=== PATIENT | male | born 1955 ===

== ENCOUNTER 2020-06-23 20:06 | Inpatient (IN) | payer BC, SELFPAY ==
[2020-06-24] MEDS ORDERED: cloNIDine 0.1 MG TAB PO PRN (00:15)
[2020-06-24] MEDS ORDERED: Ondansetron PF 4 MG/2 ML Vial IVP PRN (00:15)
[2020-06-24] MEDS ORDERED: Labetalol HCl 100 MG/20 ML VIAL SLOW IVP PRN (00:15)
[2020-06-24] MEDS ORDERED: hydrALAZINE 20 MG/ML VIAL SLOW IVP PRN (00:15)
[2020-06-24] MEDS ORDERED: Electrolyte Replacement Protocol 1 EACH FS SCH (00:15)
[2020-06-24] MEDS ORDERED: HYDROcodone/Acetaminophen 5/325 mg Tablet PO PRN (00:15)
[2020-06-24] MEDS ORDERED: Azithromycin 500 MG in Syringe 0 ML IVPB SCH (00:15)
[2020-06-24] MEDS ORDERED: Promethazine HCl 12.5 MG in Sodium Chloride 0.9% 50 ML IVPB PRN (00:15)
[2020-06-24] MEDS ORDERED: Guaifenesin DM 100-10/5 ML UDCUP PO PRN (00:15)
--- NOTE | 2020-06-24 00:19 | PDOC.HHP ---
Hospitalist HPI Shortness of breath History of Present Illness: Patient is a 65 year old male with no significant PMH who presents to hospital as transfer from [facility] for SOB, COVID. Patient diagnosed w/ covid 7 days ago, presents originally w/ 1 day of shortness of breath. he has quarantined at home, went to ED today, O2 sat ranged from 54-85 on room air, but was in mid 90s on 2L by nasal cannula. In ED, COVID swab positive, CT chest performed and revealed pneumonia consistent w/ COVID infection. Diffuse lymphadenopathy noted, cannot rule out lymphoproliferative disease. 22mm adrenal adenoma noted, f/u recommended. cholelithiasis w/ no other GB findings noted. patient given albuterol, dexamethasone, labs significant for mildly elevated D dimer, elevated NT proBNP. Patient sent here for further workup and care. Allergies/Adverse Reactions: Allergy/AdvReac Type Severity Reaction Status Date / Time No Known Drug Allergies Allergy Verified 06/23/20 23:33 Home Medications: Medication Instructions Recorded Confirmed Type No Known 06/23/20 06/23/20 History Comments: none Past History: PMHx: reviewed, no pertinent past medical history PSHx: ankle and knee surgery FHx: reviewed, no pertinent past family history Social: denies alcohol, tobacco, drug use Hospitalist HPI ROS Constitutional: denies: fever, chills, sweats, weakness, malaise, other Eyes: denies: pain, vision change, conjunctivae inflammation, eyelid inflammation, redness, other ENT: denies: ear pain, ear discharge, nose pain, nose discharge, nose congestion, mouth pain, mouth swelling, throat pain, throat swelling, other Respiratory: reports: shortness of breath. denies: cough, dry, hemoptysis, SOB with excertion, pleuritic pain, sputum, wheezing, other Cardiovascular: denies: chest pain, palpitations, orthopnea, paroxysmal noc. dyspnea, edema, light headedness, other Gastrointestinal: denies: nausea, vomiting, abdominal pain, diarrhea, constipation, melena, hematochezia, other Genitourinary: denies: dysuria, frequency, incontinence, hematuria, retention, other Musculoskeletal: denies: neck pain, shoulder pain, arm pain, back pain, hand pain, leg pain, foot pain, other Skin: denies: rash, lesions, fior, bruising, other Neurological: denies: weakness, numbness, incoordination, change in speech, confusion, seizures, other All other systems reviewed; all pertinent +/- noted in HPI/Subj Hospitalist Exam Vitals: Vital Signs (12 hours) Temp Pulse Resp Pulse Ox 06/24/20 00:00 98 06/23/20 23:21 97.6 F 81 20 98 Weight Weight 213 lb General Appearance: NAD, awake alert Eye: PERRL, anicteric sclera ENT: normocephalic atraumatic, no oropharyngeal lesions, moist mucosa Neck: supple, symmetric, no JVD, no thyromegaly, no lymphadenopathy, no carotid bruit Heart: RRR, no murmur, no gallops, no rubs, normal peripheral pulses Respiratory: CTAB, no wheezes, no rales, no ronchi, normal chest expansion, no tachypnea, normal percussion Gastrointestinal: soft, non-tender, non-distended, normal bowel sounds, no palpable masses, no hepatomegaly, no splenomegaly, no bruit Extremities: no cyanosis, no clubbing, no edema Skin: normal turgor, no lesions, no rashes Neurological: cranial nerve grossly intact, normal sensation to touch, no weakness, no focal deficits, no new deficit Musculoskeletal: normal tone, normal strength, no muscle wasting Psychiatric: normal affect, normal behavior, A&O x 3 Hospitalist Results Additional comment: transfer documents reviewed, including labs, vital signs, notes from ED physician and imaging reports Hospitalist H&P A/P Plan: Patient is a 65 year old male with no significant PMH who presents to hospital as transfer from [facility] for SOB, COVID. # COVID 19 infection # hypoxia # elevated D dimer # elevated NT proBNP Patient diagnosed w/ covid 7 days ago, presents originally w/ 1 day of shortness of breath. he has quarantined at home, went to ED today, O2 sat ranged from 54- 85 on room air, but was in mid 90s on 2L by nasal cannula. In ED, COVID swab positive, CT chest performed and revealed pneumonia consistent w/ COVID infection. Diffuse lymphadenopathy noted, cannot rule out lymphoproliferative disease. 22mm adrenal adenoma noted, f/u recommended. cholelithiasis w/ no other GB findings noted. patient given albuterol, dexamethasone, labs significant for mildly elevated D dimer, elevated NT proBNP. Patient sent here for further workup and care. - admitted to floor - supplemental O2, wean as tolerated - azithromycin, decadron, Vit C/D, zinc, pepcid - monitor closely - for elevated D dimer: CTA chest w/ no PE, continue DVT ppx - for elevated NT proBNP - lasix x 2 days ordered # diffuse lymphadenopathy and adrenal adenoma on CT chest - patient will need nonurgent repeat CT chest as outpatient, adrenal protocol + protocol to see lymph nodes DVT/GI ppx full code
[2020-06-24] MEDS ORDERED: Electrolyte Replacement Protocol FS PRN (00:30)
[2020-06-24] MEDS ORDERED: Dexamethasone 4 mg/ml Vial SLOW IVP SCH (01:00)
[2020-06-24] MEDS: Azithromycin 500 MG in Sodium Chloride 0.9% 250 ML 250 ML IVPB SCH (01:24)
[2020-06-24] MEDS: Dexamethasone 4 mg/ml Vial SLOW IVP SCH (05:28)
[2020-06-24] MEDS: Mometasone 100 MCG/Formoterol 5 MCG 120 PUFF INHALER INH SCH ×2 (06:13→18:27)
[2020-06-24] MEDS: Famotidine 20 MG TAB PO SCH ×2 (08:00→20:44)
[2020-06-24] MEDS: Cholecalciferol 1,000 UNITS (25 MCG) TAB PO SCH (08:00)
[2020-06-24] MEDS: Furosemide 40 MG TAB PO SCH (08:00)
[2020-06-24] MEDS: Ascorbic Acid 500 mg Chewable Tablet PO SCH (08:00)
[2020-06-24] MEDS: Polyethylene Glycol 3350 17 GM Packet PO SCH ×2 (08:01)
[2020-06-24] MEDS: Zinc Sulfate 220 MG CAP PO SCH (08:01)
--- NOTE | 2020-06-24 15:19 | PDOC.HOSPP ---
- Subjective Encounter Date: 06/24/20 Subjective: Complaints of shortness of breath but feeling better - Objective Vital Signs & Weight: Vital Signs (12 hours) Temp Pulse Resp BP BP Pulse Ox 06/24/20 13:14 94 L 06/24/20 12:00 97.8 F 73 20 144/74 H 90 L 06/24/20 08:00 90 L 06/24/20 07:52 98.3 F 94 20 123/70 90 L 06/24/20 04:00 97.8 F 80 20 125/71 93 L Weight Weight 213 lb I&O: 06/23/20 06/24/20 06/25/20 06:59 06:59 06:59 Intake Total 480 Balance 480 Hospitalist ROS - Review of Systems Constitutional: denies: fever, chills, sweats, weakness, malaise, other Eyes: denies: pain, vision change, conjunctivae inflammation, eyelid inflammation, redness, other Respiratory: reports: shortness of breath Cardiovascular: denies: chest pain, palpitations, orthopnea, paroxysmal noc. dyspnea, edema, light headedness, other Genitourinary: denies: dysuria, frequency, incontinence, hematuria, retention, other Skin: denies: rash, lesions, fior, bruising, other Neurological: denies: weakness, numbness, incoordination, change in speech, confusion, seizures, other - Medication Medications: Active Medications Generic Name Dose Route Start Last Admin Trade Name Freq PRN Reason Stop Dose Admin Ascorbic Acid 500 mg 06/24/20 09:00 06/24/20 08:00 Ascorbic Acid 500 Mg Chewable Tablet PO 500 mg DAILY ABDULLAHI Administration Cholecalciferol 2,000 units 06/24/20 09:00 06/24/20 08:00 Cholecalciferol 1,000 Units (25 Mcg) Tab PO 2,000 units DAILY ABDULLAHI Administration Dexamethasone 6 mg 06/24/20 06:00 06/24/20 05:28 Dexamethasone 4 Mg/Ml Vial SLOW IVP 6 mg 0600 ABDULLAHI Administration Famotidine 20 mg 06/24/20 09:00 06/24/20 08:00 Famotidine 20 Mg Tab PO 20 mg BID ABDULLAHI Administration Furosemide 40 mg 06/24/20 07:30 06/24/20 08:00 Furosemide 40 Mg Tab PO 06/25/20 07:31 40 mg DAILY-AC ABDULLAHI Administration Azithromycin 500 mg/ Sodium 250 mls @ 250 mls/hr 06/24/20 01:00 06/24/20 01:24 Chloride IVPB 250 mls 0100 ABDULLAHI Administration Mometasone Furoate/Formoterol Fumar 1 puff 06/24/20 06:30 06/24/20 06:13 Mometasone 100 Mcg/Formoterol 5 Mcg 120 Puff Inhaler INH 1 puff BID-RT ABDULLAHI Administration Polyethylene Glycol 17 gm 06/24/20 09:00 06/24/20 08:01 Polyethylene Glycol 3350 17 Gm Packet PO 17 gm DAILY ABDULLAHI Administration Zinc Sulfate 220 mg 06/24/20 09:00 06/24/20 08:01 Zinc Sulfate 220 Mg Cap PO 220 mg DAILY ABDULLAHI Administration Hospitalist Exam Vitals: Vital Signs (12 hours) Temp Pulse Resp BP BP Pulse Ox 06/24/20 13:14 94 L 06/24/20 12:00 97.8 F 73 20 144/74 H 90 L 06/24/20 08:00 90 L 06/24/20 07:52 98.3 F 94 20 123/70 90 L 06/24/20 04:00 97.8 F 80 20 125/71 93 L Weight Weight 213 lb General Appearance: awake alert Eye: PERRL ENT: normocephalic atraumatic Neck: supple Heart: RRR Respiratory: rales Gastrointestinal: soft, non-tender, non-distended Extremities: no cyanosis, no clubbing, no edema Hosp A/P - Plan #1. Acute hypoxic respiratory failure secondary to Covid pneumonia -On inhalers, steroids and antibiotics -Sats at 90% on 2 L 2. DVT prophylaxis -Subcu Lovenox
[2020-06-24] MEDS: Enoxaparin Sodium 40 MG/0.4 ML SYRINGE SC SCH (20:43)
[2020-06-25] MEDS: Azithromycin 500 MG in Sodium Chloride 0.9% 250 ML 250 ML IVPB SCH (01:00)
[2020-06-25] MEDS: Dexamethasone 4 mg/ml Vial SLOW IVP SCH (06:08)
[2020-06-25 06:28] LABS: #Lymphocytes 1.4 thou/uL (1.20-3.40); #Monocytes 0.2 thou/uL (0.11-0.59); %Basophils 0.1 % (0.0-1.0); %Lymphocytes 14.6 % (21.0-51.0); %Monocytes 2.1 % (0.0-10.0); %Neutrophils 83.2 % (42.0-75.0); Hemoglobin 9.1 g/dL (14.0-18.0); Mean Corpuscular HGB CONC 31.1 g/dL (32.0-36.0); Mean Corpuscular Volume 83.5 fL (78.0-98.0); Mean Platelet Volume 7.3 fL (7.4-10.4); Platelet Count 277 thou/uL (130-400); RBC Distribution Width 14.3 % (11.5-14.5); Red Blood Cell (RBC) Count 3.52 mill/uL (4.70-6.10); White Blood Cell (WBC) Count 9.6 thou/uL (4.8-10.8)
[2020-06-25 06:48] LABS: Anion Gap 12 mmol/L (10-20); BUN (Urea Nitrogen) 21 mg/dL (8.4-25.7); Calc. Creatinine Clearance 131 mL/min (70-130); Calcium 8.4 mg/dL (7.8-10.44); Carbon Dioxide 29 mmol/L (23-31); Chloride 100 mmol/L (98-107); Glucose 116 mg/dL (80-115); Potassium 5.4 mmol/L (3.5-5.1); Sodium 136 mmol/L (136-145)
[2020-06-25] MEDS: Mometasone 100 MCG/Formoterol 5 MCG 120 PUFF INHALER INH SCH ×2 (07:00→18:04)
[2020-06-25] MEDS: Furosemide 40 MG TAB PO SCH (08:22)
[2020-06-25] MEDS: Polyethylene Glycol 3350 17 GM Packet PO SCH (08:22)
[2020-06-25] MEDS: Famotidine 20 MG TAB PO SCH ×2 (08:22→20:04)
[2020-06-25] MEDS: Ascorbic Acid 500 mg Chewable Tablet PO SCH (08:22)
[2020-06-25] MEDS: Zinc Sulfate 220 MG CAP PO SCH (08:22)
[2020-06-25] MEDS: Cholecalciferol 1,000 UNITS (25 MCG) TAB PO SCH (08:22)
--- NOTE | 2020-06-25 11:58 | PDOC.HOSPP ---
- Subjective Encounter Date: 06/25/20 Encounter Time: 11:57 Subjective: Feeling better, less short of breath - Objective Vital Signs & Weight: Vital Signs (12 hours) Temp Pulse Resp BP Pulse Ox 06/25/20 08:00 91 L 06/25/20 07:53 90 L 06/25/20 07:12 98.6 F 82 20 132/75 94 L 06/25/20 04:00 99.0 F 79 18 142/75 H 06/25/20 00:00 97.7 F 79 20 138/74 88 L Weight Weight 213 lb I&O: 06/24/20 06/25/20 06/26/20 06:59 06:59 06:59 Intake Total 2220 Balance 2220 Result Diagrams: 06/25/20 05:48 06/25/20 05:48 Hospitalist ROS - Review of Systems Constitutional: denies: fever, chills, sweats, weakness, malaise, other Eyes: denies: pain, vision change, conjunctivae inflammation, eyelid in flammation, redness, other ENT: denies: ear pain, ear discharge, nose pain, nose discharge, nose congestion, mouth pain, mouth swelling, throat pain, throat swelling, other Respiratory: denies: cough, dry, shortness of breath, hemoptysis, SOB with ex certion, pleuritic pain, sputum, wheezing, other Cardiovascular: denies: chest pain, palpitations, orthopnea, paroxysmal noc. dyspnea, edema, light headedness, other Gastrointestinal: denies: nausea, vomiting, abdominal pain, diarrhea, constipation, melena, hematochezia, other Genitourinary: denies: dysuria, frequency, incontinence, hematuria, retention, other Musculoskeletal: denies: neck pain, shoulder pain, arm pain, back pain, hand pain, leg pain, foot pain, other Skin: denies: rash, lesions, fior, bruising, other - Medication Medications: Active Medications Generic Name Dose Route Start Last Admin Trade Name Freq PRN Reason Stop Dose Admin Ascorbic Acid 500 mg 06/24/20 09:00 06/25/20 08:22 Ascorbic Acid 500 Mg Chewable Tablet PO 500 mg DAILY ABDULLAHI Administration Cholecalciferol 2,000 units 06/24/20 09:00 06/25/20 08:22 Cholecalciferol 1,000 Units (25 Mcg) Tab PO 2,000 units DAILY ABDULLAHI Administration Dexamethasone 6 mg 06/24/20 06:00 06/25/20 06:08 Dexamethasone 4 Mg/Ml Vial SLOW IVP 6 mg 0600 ABDULLAHI Administration Enoxaparin Sodium 40 mg 06/24/20 21:00 06/24/20 20:43 Enoxaparin Sodium 40 Mg/0.4 Ml Syringe SC 40 mg 2100 ABDULLAHI Administration Famotidine 20 mg 06/24/20 09:00 06/25/20 08:22 Famotidine 20 Mg Tab PO 20 mg BID ABDULLAHI Administration Azithromycin 500 mg/ Sodium 250 mls @ 250 mls/hr 06/24/20 01:00 06/25/20 01:00 Chloride IVPB 250 mls 0100 ABDULLAHI Administration Mometasone Furoate/Formoterol Fumar 1 puff 06/24/20 06:30 06/25/20 07:00 Mometasone 100 Mcg/Formoterol 5 Mcg 120 Puff Inhaler INH 1 puff BID-RT ABDULLAHI Administration Polyethylene Glycol 17 gm 06/24/20 09:00 06/25/20 08:22 Polyethylene Glycol 3350 17 Gm Packet PO Not Given DAILY ABDULLAHI Zinc Sulfate 220 mg 06/24/20 09:00 06/25/20 08:22 Zinc Sulfate 220 Mg Cap PO 220 mg DAILY ABDULLAHI Administration Hospitalist Exam Vitals: Vital Signs (12 hours) Temp Pulse Resp BP Pulse Ox 06/25/20 08:00 91 L 06/25/20 07:53 90 L 06/25/20 07:12 98.6 F 82 20 132/75 94 L 06/25/20 04:00 99.0 F 79 18 142/75 H 06/25/20 00:00 97.7 F 79 20 138/74 88 L Weight Weight 213 lb General Appearance: NAD, awake alert Eye: PERRL ENT: normocephalic atraumatic, no oropharyngeal lesions Neck: supple, symmetric, no JVD Heart: RRR, no murmur, no gallops Respiratory: CTAB, no wheezes, no rales Gastrointestinal: soft, non-tender, non-distended, normal bowel sounds Extremities: no cyanosis, no clubbing, no edema Hosp A/P - Plan #1. Acute hypoxic respiratory failure secondary to Covid pneumonia -On inhalers, steroids and antibiotics -Sats at 94% on 4L 2. DVT prophylaxis -Subcu Lovenox
[2020-06-25] MEDS: Enoxaparin Sodium 40 MG/0.4 ML SYRINGE SC SCH (20:04)
[2020-06-26] MEDS: Azithromycin 500 MG in Sodium Chloride 0.9% 250 ML 250 ML IVPB SCH (02:00)
[2020-06-26] MEDS: Dexamethasone 4 mg/ml Vial SLOW IVP SCH (07:12)
[2020-06-26] MEDS: Mometasone 100 MCG/Formoterol 5 MCG 120 PUFF INHALER INH SCH ×2 (07:13→18:19)
[2020-06-26] MEDS: Cholecalciferol 1,000 UNITS (25 MCG) TAB PO SCH (08:00)
[2020-06-26] MEDS: Zinc Sulfate 220 MG CAP PO SCH (08:00)
[2020-06-26] MEDS: Famotidine 20 MG TAB PO SCH ×2 (08:00→19:50)
[2020-06-26] MEDS: Acetaminophen 325 MG TAB PO PRN (08:00)
[2020-06-26] MEDS: Ascorbic Acid 500 mg Chewable Tablet PO SCH (08:00)
[2020-06-26] MEDS: Polyethylene Glycol 3350 17 GM Packet PO SCH (08:01)
[2020-06-26 09:18] LABS: #Lymphocytes 1.3 thou/uL (1.20-3.40); #Monocytes 0.2 thou/uL (0.11-0.59); #Neutrophils 8.6 thou/uL (1.40-6.50); %Eosinophils 0.3 % (0.0-10.0); %Monocytes 1.8 % (0.0-10.0); %Neutrophils 84.9 % (42.0-75.0); Hemoglobin 9.5 g/dL (14.0-18.0); Mean Corpuscular Hemoglobin 25.7 pg (27.0-31.0); Mean Corpuscular Volume 82.9 fL (78.0-98.0); Mean Platelet Volume 7.2 fL (7.4-10.4); Platelet Count 296 thou/uL (130-400); RBC Distribution Width 14.3 % (11.5-14.5); Red Blood Cell (RBC) Count 3.69 mill/uL (4.70-6.10); White Blood Cell (WBC) Count 10.1 thou/uL (4.8-10.8)
[2020-06-26 09:31] LABS: Anion Gap 11 mmol/L (10-20); BUN (Urea Nitrogen) 20 mg/dL (8.4-25.7); Calc. Creatinine Clearance 129 mL/min (70-130); Calcium 8.2 mg/dL (7.8-10.44); Carbon Dioxide 28 mmol/L (23-31); Chloride 95 mmol/L (98-107); Glucose 141 mg/dL (80-115); Potassium 4.3 mmol/L (3.5-5.1); Sodium 130 mmol/L (136-145)
[2020-06-26] MEDS: cefTRIAXone\\ROCEPHIN 1 GM in Sodium Chloride 0.9% 100 ML IVPB SCH (13:10)
--- NOTE | 2020-06-26 13:33 | PDOC.HOSPP ---
- Subjective Encounter Date: 06/26/20 Encounter Time: 10:00 Subjective: More hypoxic this morning with sats in the low 80s. Apparently patient went to the restroom without his oxygen and when he came back he became more hypoxic. Placed back on high flow oxygen with sats now at 91% - Objective Vital Signs & Weight: Vital Signs (12 hours) Temp Pulse Resp BP Pulse Ox 06/26/20 12:04 98.8 F 84 18 126/69 94 L 06/26/20 11:46 91 L 06/26/20 08:00 98.9 F 82 18 96 06/26/20 07:41 99.3 F 83 18 125/62 85 L 06/26/20 07:18 91 L 06/26/20 03:50 98.7 F 74 20 129/72 92 L 06/26/20 02:37 93 L Weight Weight 213 lb I&O: 06/25/20 06/26/20 06/27/20 06:59 06:59 06:59 Intake Total 2220 Output Total 600 Balance 2220 -600 Result Diagrams: 06/26/20 08:56 06/26/20 08:56 Hospitalist ROS - Review of Systems Constitutional: denies: fever, chills, sweats, weakness, malaise, other Eyes: denies: pain, vision change, conjunctivae inflammation, eyelid inflammation, redness, other ENT: denies: ear pain, ear discharge, nose pain, nose discharge, nose congesti on, mouth pain, mouth swelling, throat pain, throat swelling, other Respiratory: reports: shortness of breath, SOB with excertion Cardiovascular: denies: chest pain, palpitations, orthopnea, paroxysmal noc. dyspnea, edema, light headedness, other Gastrointestinal: denies: nausea, vomiting, abdominal pain, diarrhea, constipa tion, melena, hematochezia, other Genitourinary: denies: dysuria, frequency, incontinence, hematuria, retention, other Musculoskeletal: denies: neck pain, shoulder pain, arm pain, back pain, hand pain, leg pain, foot pain, other Skin: denies: rash, lesions, fior, bruising, other - Medication Medications: Active Medications Generic Name Dose Route Start Last Admin Trade Name Freq PRN Reason Stop Dose Admin Ascorbic Acid 500 mg 06/24/20 09:00 06/26/20 08:00 Ascorbic Acid 500 Mg Chewable Tablet PO 500 mg DAILY ABDULLAHI Administration Cholecalciferol 2,000 units 06/24/20 09:00 06/26/20 08:00 Cholecalciferol 1,000 Units (25 Mcg) Tab PO 2,000 units DAILY ABDULLAHI Administration Dexamethasone 6 mg 06/24/20 06:00 06/26/20 07:12 Dexamethasone 4 Mg/Ml Vial SLOW IVP 6 mg 0600 ABDULLAHI Administration Enoxaparin Sodium 40 mg 06/24/20 21:00 06/25/20 20:04 Enoxaparin Sodium 40 Mg/0.4 Ml Syringe SC 40 mg 2100 ABDULLAHI Administration Famotidine 20 mg 06/24/20 09:00 06/26/20 08:00 Famotidine 20 Mg Tab PO 20 mg BID ABDULLAHI Administration Azithromycin 500 mg/ Sodium 250 mls @ 250 mls/hr 06/24/20 01:00 06/26/20 02:00 Chloride IVPB 250 mls 0100 ABDULLAHI Administration Ceftriaxone Sodium 1 gm/ 100 mls @ 200 mls/hr 06/26/20 13:00 06/26/20 13:10 Sodium Chloride IVPB 100 mls 1300 ABDULLAHI Administration Mometasone Furoate/Formoterol Fumar 1 puff 06/24/20 06:30 06/26/20 07:13 Mometasone 100 Mcg/Formoterol 5 Mcg 120 Puff Inhaler INH 1 puff BID-RT ABDULLAHI Administration Ondansetron HCl 4 mg 06/24/20 00:15 06/25/20 15:14 Ondansetron Pf 4 Mg/2 Ml Vial IVP 4 mg Q6H PRN Administration Nausea/Vomiting use 1st Polyethylene Glycol 17 gm 06/24/20 09:00 06/26/20 08:01 Polyethylene Glycol 3350 17 Gm Packet PO Not Given DAILY ABDULLAHI Zinc Sulfate 220 mg 06/24/20 09:00 06/26/20 08:00 Zinc Sulfate 220 Mg Cap PO 220 mg DAILY ABDULLAHI Administration Hospitalist Exam Vitals: Vital Signs (12 hours) Temp Pulse Resp BP Pulse Ox 06/26/20 12:04 98.8 F 84 18 126/69 94 L 06/26/20 11:46 91 L 06/26/20 08:00 98.9 F 82 18 96 06/26/20 07:41 99.3 F 83 18 125/62 85 L 06/26/20 07:18 91 L 06/26/20 03:50 98.7 F 74 20 129/72 92 L 06/26/20 02:37 93 L Weight Weight 213 lb General Appearance: NAD, awake alert Eye: PERRL ENT: normocephalic atraumatic, no oropharyngeal lesions Neck: supple, no JVD Heart: RRR, no murmur Respiratory: tachypneic Gastrointestinal: soft, non-tender, non-distended Extremities: no cyanosis, no clubbing, no edema Skin: normal turgor Musculoskeletal: normal tone, normal strength Hosp A/P - Plan #1. Acute hypoxic respiratory failure secondary to Covid pneumonia -On inhalers, steroids and antibiotics -Clinically has deteriorated, now on high flow oxygen with sats of 91% -Added colchicine -Ordered D-dimer to determine if patient should be on therapeutic dose of Lovenox -Pulmonology consult 2. Adrenal adenoma -Outpatient follow-up with PCP for repeat CT of abdomen with contrast for further evaluation 3. DVT prophylaxis -Subcu Lovenox Updated patient's over the phone regarding clinical status
--- NOTE | 2020-06-26 16:45 | RAD ---
RADIOGRAPH CHEST 1 VIEW: DATE: 06/26/2020 TIME: 4:10 PM HISTORY: 65-year-old male with "worsening COVID" COMPARISON: none FINDINGS: Diffuse mild bilateral reticulonodular infiltrates, greatest at left lung base. Enlarged cardiac shadow due to magnification versus true cardiomegaly. No pneumothorax. IMPRESSION: Bilateral mild to moderate infiltrates, nonspecific. This could represent COVID 19 pneumonia.
--- NOTE | 2020-06-26 16:46 | PRG ---
DATE OF SERVICE: 06/26/2020 SUBJECTIVE: I was consulted to see this patient because he has COVID and he is requiring high-flow oxygen. This morning, he got up and desaturated significantly. He is now day 10 into his COVID. He did not really feel bad until about 3 days ago when he went to freestanding ER in [place] and was subsequently transferred over here. He is now requiring about 90% high-flow oxygen. PAST MEDICAL HISTORY: Denies any past medical history. PAST SURGICAL HISTORY: Ankle and knee surgery. FAMILY MEDICAL HISTORY: Unremarkable. SOCIAL HISTORY: Nonsmoker. Does not consume alcohol. Does not use illicit drugs. He works in [employer]. 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 ALLERGIES: NONE. MEDICATIONS: Prior to admission, none. Inpatient medications reviewed. See chart. REVIEW OF SYSTEMS: Remarkable for cough, shortness of breath with exertion. Otherwise, negative. PHYSICAL EXAMINATION: VITAL SIGNS: Temperature 98.8, pulse 78, respirations 20, O2 sats about 99% on 90% high-flow, blood pressure 126/69. GENERAL: He is an engaging personality who is very talkative, is in no acute distress. HEENT: Unremarkable. NECK: No adenopathy or JVD. LUNGS: Inspiratory crackles in both bases. CARDIAC: S1 and S2, regular. ABDOMEN: Soft. EXTREMITIES: No edema. LABORATORY DATA: White blood cell count 10, hematocrit 30, and platelet count 296. D-dimer 6.2. Sodium 138, potassium 4.2, chloride 95, CO2 of 28, BUN 20, creatinine 0.7, glucose 141. IMAGING STUDIES: Chest x-ray shows bilateral infiltrates. ASSESSMENT: COVID pneumonia. PLAN: Agree with the colchicine, dexamethasone, zinc, enoxaparin. Please let me know if he decompensates any further. BiPAP would be the next step and then intubation. Job ID: [id number]
[2020-06-26] MEDS: Colchicine 0.6 MG TAB PO SCH (17:15)
[2020-06-26] MEDS: Enoxaparin Sodium 40 MG/0.4 ML SYRINGE SC SCH (19:50)
[2020-06-27] MEDS: Azithromycin 500 MG in Sodium Chloride 0.9% 250 ML 250 ML IVPB SCH (01:13)
[2020-06-27] MEDS: Dexamethasone 4 mg/ml Vial SLOW IVP SCH (05:23)
[2020-06-27] MEDS: Mometasone 100 MCG/Formoterol 5 MCG 120 PUFF INHALER INH SCH ×2 (05:45→17:55)
[2020-06-27] MEDS: Acetaminophen 325 MG TAB PO PRN (05:49)
[2020-06-27] MEDS: Polyethylene Glycol 3350 17 GM Packet PO SCH (08:10)
[2020-06-27] MEDS: Famotidine 20 MG TAB PO SCH (08:10)
[2020-06-27] MEDS: Ascorbic Acid 500 mg Chewable Tablet PO SCH (08:10)
[2020-06-27] MEDS: Zinc Sulfate 220 MG CAP PO SCH (08:10)
[2020-06-27] MEDS: Cholecalciferol 1,000 UNITS (25 MCG) TAB PO SCH (08:10)
[2020-06-27] MEDS: Colchicine 0.6 MG TAB PO SCH ×2 (08:10→16:15)
[2020-06-27 08:26] LABS: Anion Gap 13 mmol/L (10-20); BUN (Urea Nitrogen) 20 mg/dL (8.4-25.7); Calc. Creatinine Clearance 134 mL/min (70-130); Calcium 8.1 mg/dL (7.8-10.44); Carbon Dioxide 27 mmol/L (23-31); Chloride 96 mmol/L (98-107); Glucose 114 mg/dL (80-115); Potassium 4.6 mmol/L (3.5-5.1); Sodium 131 mmol/L (136-145)
[2020-06-27] MEDS: Pantoprazole 40 MG GRANULES PACKET PO SCH ×2 (10:51→20:41)
[2020-06-27 12:09] LABS: #Lymphocytes 1.3 thou/uL (1.20-3.40); #Monocytes 0.2 thou/uL (0.11-0.59); #Neutrophils 11.2 thou/uL (1.40-6.50); %Basophils 0.2 % (0.0-1.0); %Eosinophils 0.1 % (0.0-10.0); %Lymphocytes 10.3 % (21.0-51.0); %Monocytes 1.3 % (0.0-10.0); %Neutrophils 88.1 % (42.0-75.0); Hemoglobin 9.1 g/dL (14.0-18.0); Mean Corpuscular HGB CONC 31.1 g/dL (32.0-36.0); Mean Corpuscular Hemoglobin 25.8 pg (27.0-31.0); Mean Platelet Volume 7.6 fL (7.4-10.4); Platelet Count 229 thou/uL (130-400); RBC Distribution Width 14.3 % (11.5-14.5); Red Blood Cell (RBC) Count 3.53 mill/uL (4.70-6.10); White Blood Cell (WBC) Count 12.7 thou/uL (4.8-10.8)
[2020-06-27] MEDS: cefTRIAXone\\ROCEPHIN 1 GM in Sodium Chloride 0.9% 100 ML IVPB SCH (12:12)
--- NOTE | 2020-06-27 12:39 | PDOC.HOSPP ---
- Subjective Encounter Date: 06/27/20 Encounter Time: 13:00 Subjective: Lying in bed, comfortable, no acute distress - Objective Vital Signs & Weight: Vital Signs (12 hours) Temp Pulse Resp BP BP Pulse Ox 06/27/20 11:13 97.6 F 72 16 109/63 95 06/27/20 08:00 93 L 06/27/20 07:07 98.3 F 73 20 128/72 93 L 06/27/20 06:44 93 L 06/27/20 05:45 91 L 06/27/20 04:00 98.4 F 70 20 112/66 91 L Weight Weight 213 lb I&O: 06/26/20 06/27/20 06/28/20 06:59 06:59 06:59 Intake Total 1050 360 Output Total 600 900 Balance -600 150 360 Result Diagrams: 06/27/20 11:53 06/27/20 07:50 Hospitalist ROS - Review of Systems Constitutional: denies: fever, chills, sweats, weakness, malaise, other Eyes: denies: pain, vision change, conjunctivae inflammation, eyelid inflammation, redness, other ENT: denies: ear pain, ear discharge, nose pain, nose discharge, nose congestion, mouth pain, mouth swelling, throat pain, throat swelling, other Respiratory: reports: shortness of breath, SOB with excertion Cardiovascular: denies: chest pain, palpitations, orthopnea, paroxysmal noc. dyspnea, edema, light headedness, other Gastrointestinal: denies: nausea, vomiting, abdominal pain, diarrhea, constipation, melena, hematochezia, other Genitourinary: denies: dysuria, frequency, incontinence, hematuria, retention, other Musculoskeletal: denies: neck pain, shoulder pain, arm pain, back pain, hand pain, leg pain, foot pain, other Skin: denies: rash, lesions, fior, bruising, other - Medication Medications: Active Medications Generic Name Dose Route Start Last Admin Trade Name Freq PRN Reason Stop Dose Admin Acetaminophen 650 mg 06/24/20 00:15 06/27/20 05:49 Acetaminophen 325 Mg Tab PO 650 mg Q4H PRN Administration Headache/Fever/Mild Pain (1-3) Ascorbic Acid 500 mg 06/24/20 09:00 06/27/20 08:10 Ascorbic Acid 500 Mg Chewable Tablet PO 500 mg DAILY ABDULLAHI Administration Cholecalciferol 2,000 units 06/24/20 09:00 06/27/20 08:10 Cholecalciferol 1,000 Units (25 Mcg) Tab PO 2,000 units DAILY ABDULLAHI Administration Colchicine 0.6 mg 06/26/20 17:00 06/27/20 08:10 Colchicine 0.6 Mg Tab PO 0.6 mg BID-WM ABDULLAHI Administration Dexamethasone 6 mg 06/24/20 06:00 06/27/20 05:23 Dexamethasone 4 Mg/Ml Vial SLOW IVP 6 mg 0600 ABDULLAHI Administration Azithromycin 500 mg/ Sodium 250 mls @ 250 mls/hr 06/24/20 01:00 06/27/20 01:13 Chloride IVPB 250 mls 0100 ABDULLAHI Administration Ceftriaxone Sodium 1 gm/ 100 mls @ 200 mls/hr 06/26/20 13:00 06/27/20 12:12 Sodium Chloride IVPB 100 mls 1300 ABDULLAHI Administration Mometasone Furoate/Formoterol Fumar 1 puff 06/24/20 06:30 06/27/20 05:45 Mometasone 100 Mcg/Formoterol 5 Mcg 120 Puff Inhaler INH 1 puff BID-RT ABDULLAHI Administration Ondansetron HCl 4 mg 06/24/20 00:15 06/25/20 15:14 Ondansetron Pf 4 Mg/2 Ml Vial IVP 4 mg Q6H PRN Administration Nausea/Vomiting use 1st Pantoprazole Sodium 40 mg 06/27/20 09:00 06/27/20 10:51 Pantoprazole 40 Mg Granules Packet PO 40 mg BID ABDULLAHI Administration Polyethylene Glycol 17 gm 06/24/20 09:00 06/27/20 08:10 Polyethylene Glycol 3350 17 Gm Packet PO 17 gm DAILY ABDULLAHI Administration Zinc Sulfate 220 mg 06/24/20 09:00 06/27/20 08:10 Zinc Sulfate 220 Mg Cap PO 220 mg DAILY ABDULLAHI Administration Hospitalist Exam Vitals: Vital Signs (12 hours) Temp Pulse Resp BP BP Pulse Ox 06/27/20 11:13 97.6 F 72 16 109/63 95 06/27/20 08:00 93 L 06/27/20 07:07 98.3 F 73 20 128/72 93 L 06/27/20 06:44 93 L 06/27/20 05:45 91 L 06/27/20 04:00 98.4 F 70 20 112/66 91 L Weight Weight 213 lb General Appearance: awake alert Eye: PERRL ENT: normocephalic atraumatic Neck: no lymphadenopathy Heart: RRR Respiratory: no wheezes Gastrointestinal: soft, non-tender, non-distended Extremities: no cyanosis, no clubbing Neurological: cranial nerve grossly intact Musculoskeletal: normal tone, normal strength Psychiatric: normal affect, normal behavior Hosp A/P - Plan #1. Acute hypoxic respiratory failure secondary to Covid pneumonia -On inhalers, steroids and antibiotics -Clinically stable on high flow oxygen with sats of 96% -Added colchicine -In light of markedly elevated D-dimer, more than 3 times the normal limit, changed to therapeutic dose of Lovenox -Pulmonology consult 2. Adrenal adenoma -Outpatient follow-up with PCP for repeat CT of abdomen w/contrast for further evaluation 3. DVT prophylaxis -Subcu Lovenox Updated patient's over the phone regarding clinical status
[2020-06-27] MEDS: Enoxaparin Sodium 100 MG/ML SYRINGE SC SCH (20:41)
[2020-06-28] MEDS: Acetaminophen 325 MG TAB PO PRN (00:15)
[2020-06-28] MEDS: Azithromycin 500 MG in Sodium Chloride 0.9% 250 ML 250 ML IVPB SCH (01:11)
[2020-06-28] MEDS: Dexamethasone 4 mg/ml Vial SLOW IVP SCH (05:24)
[2020-06-28] MEDS: Mometasone 100 MCG/Formoterol 5 MCG 120 PUFF INHALER INH SCH ×2 (07:06→18:19)
[2020-06-28 07:40] LABS: Anion Gap 12 mmol/L (10-20); BUN (Urea Nitrogen) 21 mg/dL (8.4-25.7); Calc. Creatinine Clearance 123 mL/min (70-130); Carbon Dioxide 28 mmol/L (23-31); Chloride 97 mmol/L (98-107); Glucose 124 mg/dL (80-115); Potassium 5.1 mmol/L (3.5-5.1); Sodium 132 mmol/L (136-145)
[2020-06-28] MEDS: Ascorbic Acid 500 mg Chewable Tablet PO SCH ×2 (08:06→09:18)
[2020-06-28] MEDS: Polyethylene Glycol 3350 17 GM Packet PO SCH (08:06)
[2020-06-28] MEDS: Zinc Sulfate 220 MG CAP PO SCH (08:06)
[2020-06-28] MEDS: Cholecalciferol 1,000 UNITS (25 MCG) TAB PO SCH (08:06)
[2020-06-28] MEDS: Colchicine 0.6 MG TAB PO SCH ×3 (08:06→21:07)
[2020-06-28] MEDS: Pantoprazole 40 MG GRANULES PACKET PO SCH ×2 (08:06→21:07)
[2020-06-28] MEDS ORDERED: Cepastat Lozenges 1 LOZ PO PRN (08:23)
[2020-06-28] MEDS ORDERED: Loratadine 10 MG TAB PO PRN (08:23)
[2020-06-28] MEDS ORDERED: Sodium Chloride 0.65% Nasal 44 ML BOT EA NARE PRN (08:23)
[2020-06-28] MEDS ORDERED: Senokot S 8.6-50 MG TAB PO PRN (08:23)
[2020-06-28] MEDS ORDERED: Bisacodyl 5 MG TAB PO PRN (08:23)
[2020-06-28] MEDS ORDERED: Zolpidem Tartrate 5 MG TAB PO PRN (08:23)
[2020-06-28] MEDS ORDERED: GUAIFENESIN SF SOLN 200 MG/10 ML UDCUP PO PRN (08:23)
[2020-06-28] MEDS ORDERED: Loperamide HCl 2 MG CAP PO PRN (08:23)
[2020-06-28] MEDS ORDERED: Calcium Carbonate 500 MG ChewTAB PO PRN (08:23)
[2020-06-28] MEDS ORDERED: Benzonatate 100 MG CAP PO PRN (08:23)
[2020-06-28] MEDS ORDERED: Ondansetron ODT 4 MG TAB PO PRN (08:23)
[2020-06-28] MEDS ORDERED: Albuterol 200 PUFF (6.7GM INHALER) INH PRN (09:03)
[2020-06-28] MEDS: Enoxaparin Sodium 100 MG/ML SYRINGE SC SCH ×2 (09:19→21:07)
[2020-06-28] MEDS ORDERED: REMDESIVIR (EUA) 200 MG in Sodium Chloride 0.9% 250 ML 210 ML IV SCH (11:00)
--- NOTE | 2020-06-28 11:00 | PDOC.HOSPP ---
- Subjective Encounter Date: 06/28/20 Encounter Time: 08:45 Subjective: Patient is still on high flow oxygen, he is maintaining saturation to 88%, - Objective Vital Signs & Weight: Vital Signs (12 hours) Temp Pulse Resp BP Pulse Ox 06/28/20 08:00 98.3 F 74 20 166/77 H 96 06/28/20 04:57 98.3 F 73 20 116/67 90 L 06/28/20 00:34 100.7 F H 107 H 20 138/76 90 L Weight Weight 213 lb I&O: 06/27/20 06/28/20 06/29/20 06:59 06:59 06:59 Intake Total 1050 1690 Output Total 900 700 Balance 150 990 Result Diagrams: 06/27/20 11:53 06/28/20 06:50 Radiology Reviewed by me: Yes (Chest x-ray consistent with Covid pneumonia) Hospitalist ROS - Review of Systems Constitutional: reports: weakness. denies: fever, chills, sweats, malaise, other Respiratory: reports: cough, shortness of breath, SOB with excertion. denies: dry, hemoptysis, pleuritic pain, sputum, wheezing, other Gastrointestinal: denies: nausea, vomiting, abdominal pain, diarrhea, constipa tion, melena, hematochezia, other Genitourinary: denies: dysuria, frequency, incontinence, hematuria, retention, other Musculoskeletal: denies: neck pain, shoulder pain, arm pain, back pain, hand pain, leg pain, foot pain, other - Medication Medications: Active Medications Generic Name Dose Route Start Last Admin Trade Name Joseq PRN Reason Stop Dose Admin Acetaminophen 650 mg 06/24/20 00:15 06/28/20 00:15 Acetaminophen 325 Mg Tab PO 650 mg Q4H PRN Administration Headache/Fever/Mild Pain (1-3) Ascorbic Acid 1,000 mg 06/28/20 09:00 06/28/20 09:18 Ascorbic Acid 500 Mg Chewable Tablet PO 500 mg DAILY ABDULLAHI Administration Cholecalciferol 2,000 units 06/24/20 09:00 06/28/20 08:06 Cholecalciferol 1,000 Units (25 Mcg) Tab PO 2,000 units DAILY ABDULLAHI Administration Colchicine 0.6 mg 06/28/20 09:00 06/28/20 09:18 Colchicine 0.6 Mg Tab PO Not Given BID ABDULLAHI Dexamethasone 6 mg 06/24/20 06:00 06/28/20 05:24 Dexamethasone 4 Mg/Ml Vial SLOW IVP 6 mg 0600 ABDULLAHI Administration Enoxaparin Sodium 100 mg 06/27/20 21:00 06/28/20 09:19 Enoxaparin Sodium 100 Mg/Ml Syringe SC 100 mg BID ABDULLAHI Administration Ceftriaxone Sodium 1 gm/ 100 mls @ 200 mls/hr 06/26/20 13:00 06/27/20 12:12 Sodium Chloride IVPB 100 mls 1300 ABDULLAHI Administration Mometasone Furoate/Formoterol Fumar 1 puff 06/24/20 06:30 06/28/20 07:06 Mometasone 100 Mcg/Formoterol 5 Mcg 120 Puff Inhaler INH 1 puff BID-RT ABDULLAHI Administration Ondansetron HCl 4 mg 06/24/20 00:15 06/25/20 15:14 Ondansetron Pf 4 Mg/2 Ml Vial IVP 4 mg Q6H PRN Administration Nausea/Vomiting use 1st Pantoprazole Sodium 40 mg 06/27/20 09:00 06/28/20 08:06 Pantoprazole 40 Mg Granules Packet PO 40 mg BID ABDULLAHI Administration Polyethylene Glycol 17 gm 06/24/20 09:00 06/28/20 08:06 Polyethylene Glycol 3350 17 Gm Packet PO 17 gm DAILY ABDULLAHI Administration Zinc Sulfate 220 mg 06/24/20 09:00 06/28/20 08:06 Zinc Sulfate 220 Mg Cap PO 220 mg DAILY ABDULLAHI Administration Hospitalist Exam Vitals: Vital Signs (12 hours) Temp Pulse Resp BP Pulse Ox 06/28/20 08:00 98.3 F 74 20 166/77 H 96 06/28/20 04:57 98.3 F 73 20 116/67 90 L 06/28/20 00:34 100.7 F H 107 H 20 138/76 90 L Weight Weight 213 lb General Appearance: NAD, awake alert Eye: PERRL, anicteric sclera ENT: normocephalic atraumatic, no oropharyngeal lesions Neck: supple, symmetric, no JVD, no thyromegaly Heart: RRR, no murmur, no gallops, no rubs Respiratory - other findings: Bilateral coarse breath sound Gastrointestinal: soft, non-tender, non-distended, normal bowel sounds Extremities: no cyanosis, no clubbing, no edema Skin: normal turgor, no lesions Neurological: no focal deficits Musculoskeletal: normal tone, normal strength Psychiatric: normal affect, normal behavior Hosp A/P (1) Acute respiratory failure due to COVID-19 Code(s): U07.1 - COVID-19; J96.00 - ACUTE RESPIRATORY FAILURE, UNSP W HYPOXIA OR HYPERCAPNIA Status: Acute (2) Pneumonia due to 2019 novel coronavirus Code(s): U07.1 - COVID-19; J12.82 - PNEUMONIA DUE TO CORONAVIRUS DISEASE 2019 Status: Acute (3) Elevated d-dimer Code(s): R79.89 - OTHER SPECIFIED ABNORMAL FINDINGS OF BLOOD CHEMISTRY Status: Acute (4) Anemia, normocytic normochromic Code(s): D64.9 - ANEMIA, UNSPECIFIED Status: Chronic - Plan old records reviewed/req, plan discussed w/ family, continue antibiotics, respiratory therapy, DVT proph w/lovenox Patient is admitted on June 24, patient symptoms started on June 16, malcolm ent has still high flow oxygen requirement, he has significantly elevated inflammatory marker, I will transfer him to monitored bed for close monitoring, Continue Lovenox for elevated D-dimer, I have discussed with the patient about convalescent plasma and risk and benefit of this therapy, patient agreed to initiate that therapy, We will also ask pharmacy to evaluate criteria for remdesivir if he qualifies still, Continue dexamethasone, colchicine Continue vitamin supplementation We will continue to monitor while in hospital I have spoken to patient's and updated about current condition.
[2020-06-28] MEDS: cefTRIAXone\\ROCEPHIN 1 GM in Sodium Chloride 0.9% 100 ML IVPB SCH (12:48)
[2020-06-29] MEDS: Acetaminophen 325 MG TAB PO PRN (00:24)
[2020-06-29 04:44] LABS: #Lymphocytes 1.7 thou/uL (1.20-3.40); #Monocytes 0.2 thou/uL (0.11-0.59); #Neutrophils 12.2 thou/uL (1.40-6.50); %Basophils 0.1 % (0.0-1.0); %Eosinophils 0.3 % (0.0-10.0); %Lymphocytes 11.8 % (21.0-51.0); %Monocytes 1.5 % (0.0-10.0); %Neutrophils 86.4 % (42.0-75.0); Mean Corpuscular HGB CONC 31.1 g/dL (32.0-36.0); Mean Corpuscular Hemoglobin 25.6 pg (27.0-31.0); Mean Corpuscular Volume 82.4 fL (78.0-98.0); Mean Platelet Volume 8.5 fL (7.4-10.4); Platelet Count 183 thou/uL (130-400); RBC Distribution Width 14.3 % (11.5-14.5); White Blood Cell (WBC) Count 14.1 thou/uL (4.8-10.8)
[2020-06-29 05:05] LABS: ALT (SGPT) 17 U/L (8-55); AST (SGOT) 26 U/L (5-34); Albumin 2.6 g/dL (3.4-4.8); Alkaline Phosphatase 113 U/L (40-110); Anion Gap 12 mmol/L (10-20); BUN (Urea Nitrogen) 23 mg/dL (8.4-25.7); Bilirubin, Total 0.8 mg/dL (0.2-1.2); Calc. Creatinine Clearance 121 mL/min (70-130); Carbon Dioxide 26 mmol/L (23-31); Chloride 98 mmol/L (98-107); Globulin 3.6 g/dL (2.4-3.5); Glucose 109 mg/dL (80-115); Potassium 4.6 mmol/L (3.5-5.1); Protein, Total 6.2 g/dL (5.8-8.1); Sodium 131 mmol/L (136-145)
[2020-06-29] MEDS: Dexamethasone 4 mg/ml Vial SLOW IVP SCH (06:00)
[2020-06-29] MEDS: Mometasone 100 MCG/Formoterol 5 MCG 120 PUFF INHALER INH SCH ×2 (06:01→18:38)
[2020-06-29] MEDS: Polyethylene Glycol 3350 17 GM Packet PO SCH (08:58)
[2020-06-29] MEDS: Enoxaparin Sodium 100 MG/ML SYRINGE SC SCH ×2 (08:58→20:13)
[2020-06-29] MEDS: Colchicine 0.6 MG TAB PO SCH ×2 (08:59→20:14)
[2020-06-29] MEDS: Pantoprazole 40 MG GRANULES PACKET PO SCH ×2 (08:59→20:20)
[2020-06-29] MEDS: Zinc Sulfate 220 MG CAP PO SCH (08:59)
[2020-06-29] MEDS: Ascorbic Acid 500 mg Chewable Tablet PO SCH (08:59)
[2020-06-29] MEDS: Cholecalciferol 1,000 UNITS (25 MCG) TAB PO SCH (09:00)
--- NOTE | 2020-06-29 09:29 | PDOC.HOSPP ---
- Subjective Encounter Date: 06/29/20 Encounter Time: 07:00 Subjective: Patient seen and examined. No new complaints. No overnight events - Objective Vital Signs & Weight: Vital Signs (12 hours) Temp Pulse Resp BP Pulse Ox 06/29/20 04:00 99.3 F 85 28 H 129/77 88 L 06/29/20 01:21 93 L 06/29/20 00:54 99.3 F 06/29/20 00:24 101.8 F H 06/29/20 00:00 101.8 F H 111 H 26 H 136/75 93 L Weight Weight 213 lb I&O: 06/28/20 06/29/20 06/30/20 06:59 06:59 06:59 Intake Total 1690 160 Output Total 700 1250 Balance 990 -1090 Result Diagrams: 06/29/20 04:05 06/29/20 04:05 Radiology Reviewed by me: Yes EKG Reviewed by me: Yes Hospitalist ROS - Medication Medications: Active Medications Generic Name Dose Route Start Last Admin Trade Name Freq PRN Reason Stop Dose Admin Acetaminophen 650 mg 06/24/20 00:15 06/29/20 00:24 Acetaminophen 325 Mg Tab PO 650 mg Q4H PRN Administration Headache/Fever/Mild Pain (1-3) Ascorbic Acid 1,000 mg 06/28/20 09:00 06/29/20 08:59 Ascorbic Acid 500 Mg Chewable Tablet PO 1,000 mg DAILY ABDULLAHI Administration Cholecalciferol 2,000 units 06/24/20 09:00 06/29/20 09:00 Cholecalciferol 1,000 Units (25 Mcg) Tab PO 2,000 units DAILY ABDULLAHI Administration Colchicine 0.6 mg 06/28/20 09:00 06/29/20 08:59 Colchicine 0.6 Mg Tab PO 0.6 mg BID ABDULLAHI Administration Dexamethasone 6 mg 06/24/20 06:00 06/29/20 06:00 Dexamethasone 4 Mg/Ml Vial SLOW IVP 6 mg 0600 ABDULLAHI Administration Enoxaparin Sodium 100 mg 06/27/20 21:00 06/29/20 08:58 Enoxaparin Sodium 100 Mg/Ml Syringe SC 100 mg BID ABDULLAHI Administration Ceftriaxone Sodium 1 gm/ 100 mls @ 200 mls/hr 06/26/20 13:00 06/28/20 12:48 Sodium Chloride IVPB 100 mls 1300 ABDULLAHI Administration Mometasone Furoate/Formoterol Fumar 1 puff 06/24/20 06:30 06/29/20 06:01 Mometasone 100 Mcg/Formoterol 5 Mcg 120 Puff Inhaler INH 1 puff BID-RT ABDULLAHI Administration Ondansetron HCl 4 mg 06/24/20 00:15 06/25/20 15:14 Ondansetron Pf 4 Mg/2 Ml Vial IVP 4 mg Q6H PRN Administration Nausea/Vomiting use 1st Pantoprazole Sodium 40 mg 06/27/20 09:00 06/29/20 08:59 Pantoprazole 40 Mg Granules Packet PO 40 mg BID ABDULLAHI Administration Polyethylene Glycol 17 gm 06/24/20 09:00 06/29/20 08:58 Polyethylene Glycol 3350 17 Gm Packet PO 17 gm DAILY ABDULLAHI Administration Zinc Sulfate 220 mg 06/24/20 09:00 06/29/20 08:59 Zinc Sulfate 220 Mg Cap PO 220 mg DAILY ABDULLAHI Administration Hospitalist Exam Vitals: Vital Signs (12 hours) Temp Pulse Resp BP Pulse Ox 06/29/20 04:00 99.3 F 85 28 H 129/77 88 L 06/29/20 01:21 93 L 06/29/20 00:54 99.3 F 06/29/20 00:24 101.8 F H 06/29/20 00:00 101.8 F H 111 H 26 H 136/75 93 L Weight Weight 213 lb General Appearance: NAD, awake alert Eye: PERRL, anicteric sclera ENT: normocephalic atraumatic, no oropharyngeal lesions Neck: supple, symmetric, no JVD, no thyromegaly Heart: RRR, no murmur, no gallops, no rubs Respiratory: rales, tachypneic Gastrointestinal: soft, non-tender, non-distended, normal bowel sounds Extremities: no cyanosis, no clubbing, no edema Skin: normal turgor, no lesions Neurological: no focal deficits Musculoskeletal: normal tone, normal strength Psychiatric: normal affect, normal behavior Hosp A/P (1) Acute respiratory failure due to COVID-19 Code(s): U07.1 - COVID-19; J96.00 - ACUTE RESPIRATORY FAILURE, UNSP W HYPOXIA OR HYPERCAPNIA Status: Acute (2) Pneumonia due to 2019 novel coronavirus Code(s): U07.1 - COVID-19; J12.82 - PNEUMONIA DUE TO CORONAVIRUS DISEASE 2018 Status: Acute (3) Elevated d-dimer Code(s): R79.89 - OTHER SPECIFIED ABNORMAL FINDINGS OF BLOOD CHEMISTRY Status: Acute (4) Anemia, normocytic normochromic Code(s): D64.9 - ANEMIA, UNSPECIFIED Status: Chronic - Plan old records reviewed/req, plan discussed w/ family, continue antibiotics, DVT proph w/lovenox Patient was admitted on June 24, 2020, his symptoms started on June 16, on admission he did not receive any remdesivir, he was given dexamethasone and empiric Rocephin and azithromycin, he has finished azithromycin for 3 days, he is on Rocephin, initially on medical floor but transferred to telemetry floor for close monitoring, s/p convalescent plasma yesterday, he did not qualify for remdesivir again, patient is on high flow oxygen, Monitor inflammatory markers every other day Continue Lovenox therapeutic dose for elevated D-dimer Continue high flow oxygen and wean off as tolerated Discussed with the patient's and updated about plan of care Continue dexamethasone, colchicine, vitamin supplementation Expecting his hospital stay a little bit longer
[2020-06-29] MEDS ORDERED: REMDESIVIR (EUA) 100 MG in Sodium Chloride 0.9% 250 ML 230 ML IV SCH (11:00)
[2020-06-29] MEDS: cefTRIAXone\\ROCEPHIN 1 GM in Sodium Chloride 0.9% 100 ML IVPB SCH (12:05)
[2020-06-30] MEDS: Dexamethasone 4 mg/ml Vial SLOW IVP SCH (07:19)
[2020-06-30] MEDS: Mometasone 100 MCG/Formoterol 5 MCG 120 PUFF INHALER INH SCH ×2 (07:19→17:48)
[2020-06-30] MEDS: Colchicine 0.6 MG TAB PO SCH ×2 (08:00→19:35)
[2020-06-30] MEDS: Cholecalciferol 1,000 UNITS (25 MCG) TAB PO SCH (08:00)
[2020-06-30] MEDS: Polyethylene Glycol 3350 17 GM Packet PO SCH (08:00)
[2020-06-30] MEDS: Ascorbic Acid 500 mg Chewable Tablet PO SCH (08:00)
[2020-06-30] MEDS: Enoxaparin Sodium 100 MG/ML SYRINGE SC SCH ×2 (08:00→19:35)
[2020-06-30] MEDS: Zinc Sulfate 220 MG CAP PO SCH (08:00)
[2020-06-30] MEDS: Pantoprazole 40 MG GRANULES PACKET PO SCH ×2 (08:00→19:35)
[2020-06-30] MEDS: cefTRIAXone\\ROCEPHIN 1 GM in Sodium Chloride 0.9% 100 ML IVPB SCH (12:45)
[2020-07-01 05:17] LABS: #Eosinphils 0.1 thou/uL (0.0-0.7); #Lymphocytes 1.6 thou/uL (1.20-3.40); #Monocytes 0.2 thou/uL (0.11-0.59); #Neutrophils 13.4 thou/uL (1.40-6.50); %Basophils 0.2 % (0.0-1.0); %Eosinophils 0.5 % (0.0-10.0); %Lymphocytes 10.2 % (21.0-51.0); %Monocytes 1.2 % (0.0-10.0); Hemoglobin 8.3 g/dL (14.0-18.0); Mean Corpuscular HGB CONC 32.1 g/dL (32.0-36.0); Mean Corpuscular Hemoglobin 26.6 pg (27.0-31.0); Mean Corpuscular Volume 82.8 fL (78.0-98.0); Mean Platelet Volume 8.9 fL (7.4-10.4); Platelet Count 157 thou/uL (130-400); RBC Distribution Width 14.5 % (11.5-14.5); Red Blood Cell (RBC) Count 3.13 mill/uL (4.70-6.10); White Blood Cell (WBC) Count 15.2 thou/uL (4.8-10.8)
[2020-07-01 05:23] LABS: PTT 38.3 sec (22.9-36.1); Prothrombin Time 13.8 sec (12.0-14.7)
[2020-07-01] MEDS: Dexamethasone 4 mg/ml Vial SLOW IVP SCH (05:45)
[2020-07-01 05:50] LABS: Anion Gap 16 mmol/L (10-20); BUN (Urea Nitrogen) 24 mg/dL (8.4-25.7); Calc. Creatinine Clearance 121 mL/min (70-130); Calcium 7.9 mg/dL (7.8-10.44); Carbon Dioxide 24 mmol/L (23-31); Chloride 96 mmol/L (98-107); Glucose 108 mg/dL (80-115); Potassium 4.5 mmol/L (3.5-5.1); Sodium 131 mmol/L (136-145)
[2020-07-01] MEDS: Enoxaparin Sodium 100 MG/ML SYRINGE SC SCH ×2 (08:07→20:38)
[2020-07-01] MEDS: Pantoprazole 40 MG GRANULES PACKET PO SCH ×2 (08:08→20:38)
[2020-07-01] MEDS: Zinc Sulfate 220 MG CAP PO SCH (08:08)
[2020-07-01] MEDS: Colchicine 0.6 MG TAB PO SCH ×2 (08:08→20:38)
[2020-07-01] MEDS: Mometasone 100 MCG/Formoterol 5 MCG 120 PUFF INHALER INH SCH ×2 (08:08→17:35)
[2020-07-01] MEDS: Polyethylene Glycol 3350 17 GM Packet PO SCH (08:08)
[2020-07-01] MEDS: Ascorbic Acid 500 mg Chewable Tablet PO SCH (08:08)
[2020-07-01] MEDS: Cholecalciferol 1,000 UNITS (25 MCG) TAB PO SCH (08:08)
--- NOTE | 2020-07-01 08:31 | PDOC.HOSPP ---
- Subjective Encounter Date: 06/30/20 Encounter Time: 10:30 Subjective: pt up in bed feels very sob - Objective Vital Signs & Weight: Vital Signs (12 hours) Temp Pulse Resp BP Pulse Ox 07/01/20 07:13 93 L 07/01/20 07:08 88 34 H 93 L 07/01/20 05:51 98.3 F 87 20 130/80 95 07/01/20 04:00 98.4 F 81 20 130/71 94 L 07/01/20 01:58 98.7 F 86 20 135/79 95 07/01/20 01:30 80 33 H 95 07/01/20 00:00 98.6 F 82 20 158/73 H 97 06/30/20 22:00 98.3 F 76 22 H 111/70 97 Weight Weight 213 lb I&O: 06/30/20 07/01/20 07/02/20 06:59 06:59 06:59 Intake Total 1160 480 Output Total 650 400 Balance 510 80 Result Diagrams: 07/01/20 04:53 07/01/20 04:53 Hospitalist ROS - Review of Systems Respiratory: reports: shortness of breath Cardiovascular: denies: chest pain, palpitations, orthopnea, paroxysmal noc. dyspnea, edema, light headedness, other Gastrointestinal: denies: nausea, vomiting, abdominal pain, diarrhea, constipation, melena, hematochezia, other Genitourinary: denies: dysuria, frequency, incontinence, hematuria, retention, other - Medication Medications: Active Medications Generic Name Dose Route Start Last Admin Trade Name Freq PRN Reason Stop Dose Admin Acetaminophen 650 mg 06/24/20 00:15 06/29/20 00:24 Acetaminophen 325 Mg Tab PO 650 mg Q4H PRN Administration Headache/Fever/Mild Pain (1-3) Ascorbic Acid 1,000 mg 06/28/20 09:00 06/30/20 08:00 Ascorbic Acid 500 Mg Chewable Tablet PO 1,000 mg DAILY ABDULLAHI Administration Cholecalciferol 2,000 units 06/24/20 09:00 06/30/20 08:00 Cholecalciferol 1,000 Units (25 Mcg) Tab PO 2,000 units DAILY ABDULLAHI Administration Colchicine 0.6 mg 06/28/20 09:00 06/30/20 19:35 Colchicine 0.6 Mg Tab PO 0.6 mg BID ABDULLAHI Administration Dexamethasone 6 mg 06/24/20 06:00 07/01/20 05:45 Dexamethasone 4 Mg/Ml Vial SLOW IVP 6 mg 0600 ABDULLAHI Administration Enoxaparin Sodium 100 mg 06/27/20 21:00 06/30/20 19:35 Enoxaparin Sodium 100 Mg/Ml Syringe SC 100 mg BID ABDULLAHI Administration Ceftriaxone Sodium 1 gm/ 100 mls @ 200 mls/hr 06/26/20 13:00 06/30/20 12:45 Sodium Chloride IVPB 100 mls 1300 ABDULLAHI Administration Mometasone Furoate/Formoterol Fumar 1 puff 06/24/20 06:30 06/30/20 17:48 Mometasone 100 Mcg/Formoterol 5 Mcg 120 Puff Inhaler INH 1 puff BID-RT ABDULLAHI Administration Ondansetron HCl 4 mg 06/24/20 00:15 06/25/20 15:14 Ondansetron Pf 4 Mg/2 Ml Vial IVP 4 mg Q6H PRN Administration Nausea/Vomiting use 1st Pantoprazole Sodium 40 mg 06/27/20 09:00 06/30/20 19:35 Pantoprazole 40 Mg Granules Packet PO 40 mg BID ABDULLAHI Administration Polyethylene Glycol 17 gm 06/24/20 09:00 06/30/20 08:00 Polyethylene Glycol 3350 17 Gm Packet PO 17 gm DAILY ABDULLAHI Administration Zinc Sulfate 220 mg 06/24/20 09:00 06/30/20 08:00 Zinc Sulfate 220 Mg Cap PO 220 mg DAILY ABDULLAHI Administration Hospitalist Exam Vitals: Vital Signs (12 hours) Temp Pulse Resp BP Pulse Ox 07/01/20 07:13 93 L 07/01/20 07:08 88 34 H 93 L 07/01/20 05:51 98.3 F 87 20 130/80 95 07/01/20 04:00 98.4 F 81 20 130/71 94 L 07/01/20 01:58 98.7 F 86 20 135/79 95 07/01/20 01:30 80 33 H 95 07/01/20 00:00 98.6 F 82 20 158/73 H 97 06/30/20 22:00 98.3 F 76 22 H 111/70 97 Weight Weight 213 lb Neck: supple Heart: no murmur, no gallops Respiratory: no wheezes, no rales Gastrointestinal: soft, non-distended, normal bowel sounds Hosp A/P (1) Acute respiratory failure due to COVID-19 Code(s): U07.1 - COVID-19; J96.00 - ACUTE RESPIRATORY FAILURE, UNSP W HYPOXIA OR HYPERCAPNIA Status: Acute (2) Elevated d-dimer Code(s): R79.89 - OTHER SPECIFIED ABNORMAL FINDINGS OF BLOOD CHEMISTRY Status: Acute (3) Pneumonia due to 2019 novel coronavirus Code(s): U07.1 - COVID-19; J12.82 - PNEUMONIA DUE TO CORONAVIRUS DISEASE 2019 Status: Acute (4) Anemia, normocytic normochromic Code(s): D64.9 - ANEMIA, UNSPECIFIED Status: Chronic - Plan Pt very tachypenic, will start pt on bipap. I have explained to him that if this does not work he will need intubation. will continue steroids and dvt ppx.
[2020-07-01] MEDS ORDERED: Rocuronium Bromide 10 MG/ML (10ML VIAL) ONE (09:08)
[2020-07-01] MEDS: cefTRIAXone\\ROCEPHIN 1 GM in Sodium Chloride 0.9% 100 ML IVPB SCH (13:03)
[2020-07-01] MEDS ORDERED: AA 4.25 %/CALCIUM/LYTES/D5W 2,000 ML IV SCH (15:00)
[2020-07-01] MEDS ORDERED: D5W-AA 4.25% with LYTES 1,000 ML IV SCH (16:45)
[2020-07-02] MEDS ORDERED: Furosemide 40 MG/4 ML VIAL SLOW IVP SCH (02:00)
[2020-07-02 02:05] LABS: Actual Bicarbonate (HCO3a) 24.1 mEq/L (22-28); Base Excess (BEa) 1.6 mEq/L (-2.0 to +3.0); CO2 Tension 30.3 mmHg (35.0-45.0); Calcium, Ionized (arterial) 1.11 mmol/L (1.12-1.30); Carboxyhemoglobin (COHb) 0.8 gm% (0.0-3.0); Hemoglobin (Hb) 9.5 g/dL (14.0-18.0); Potassium - ABG Lab 4.29 mmol/L (3.70-5.30); pH, Arterial 7.52 (7.35-7.45)
[2020-07-02 02:07] LABS: O2 Tension (PaO2), arterial 54.2 mmHg (> 80.0); Puncture Site LRA
[2020-07-02 02:08] LABS: ALV-art Gradient 442.675 mmHg (0-20)
[2020-07-02] MEDS ORDERED: Propofol 1,000 MG/100 ML VIAL IV ONE (02:31)
[2020-07-02 02:53] LABS: Actual Bicarbonate (HCO3a) 25.2 mEq/L (22-28); Base Excess (BEa) -0.4 mEq/L (-2.0 to +3.0); CO2 Tension 45.6 mmHg (35.0-45.0); Calcium, Ionized (arterial) 1.13 mmol/L (1.12-1.30); Carboxyhemoglobin (COHb) 0.6 gm% (0.0-3.0); Hemoglobin (Hb) 10.1 g/dL (14.0-18.0); O2 Tension (PaO2), arterial 78.2 mmHg (> 80.0); Potassium - ABG Lab 4.46 mmol/L (3.70-5.30); pH, Arterial 7.36 (7.35-7.45)
[2020-07-02] MEDS ORDERED: Lorazepam 2 MG/ML VIAL ONE (02:53)
[2020-07-02 02:54] LABS: Puncture Site LRA
[2020-07-02] MEDS: Acetaminophen 325 MG TAB PO PRN (02:56)
[2020-07-02] MEDS ORDERED: Fentanyl BOLUS 250 ML IVPB PRN (03:00)
[2020-07-02] MEDS ORDERED: Propofol BOLUS 1,000 MG/100 ML VIAL IV PRN (03:00)
[2020-07-02] MEDS ORDERED: Morphine 2 MG/ML VIAL SLOW IVP PRN (03:00)
[2020-07-02] MEDS ORDERED: DISCONTINUE PREVIOUS NARCOTIC PAIN MEDICATIONS AND BENZODIAZEPINES FS SCH (03:00)
[2020-07-02] MEDS ORDERED: Fentanyl CADD 100 ML ONE ×2 (03:17→16:08)
[2020-07-02] MEDS: Dexamethasone 4 mg/ml Vial SLOW IVP SCH (06:08)
[2020-07-02] MEDS: Lorazepam 2 MG/ML VIAL SLOW IVP PRN ×5 (06:57→18:06)
[2020-07-02] MEDS: Mometasone 100 MCG/Formoterol 5 MCG 120 PUFF INHALER INH SCH ×2 (07:04→19:34)
[2020-07-02] MEDS: Zinc Sulfate 220 MG CAP PO SCH (08:33)
[2020-07-02] MEDS: Cholecalciferol 1,000 UNITS (25 MCG) TAB PO SCH (08:33)
[2020-07-02] MEDS: Pantoprazole 40 MG GRANULES PACKET PO SCH (08:34)
[2020-07-02] MEDS: Ascorbic Acid 500 mg Chewable Tablet PO SCH (08:34)
[2020-07-02] MEDS: Polyethylene Glycol 3350 17 GM Packet PO SCH (08:34)
[2020-07-02] MEDS: Colchicine 0.6 MG TAB PO SCH ×2 (08:34→20:08)
[2020-07-02] MEDS: Enoxaparin Sodium 100 MG/ML SYRINGE SC SCH ×2 (08:34→20:08)
--- NOTE | 2020-07-02 08:43 | RAD ---
PORTABLE CHEST: Date: 07/02/2020 INDICATION: Hypoxia. Tachypnea. COMPARISON: 06/26/2020. FINDINGS: There is new subcutaneous emphysema seen in the neck and upper chest and pneumomediastinum. No signif icant pneumothorax identified. There is no focal consolidation or confluent infiltrate. Hazy ground-g lass infiltrates in the lower lungs cannot be excluded. There is evidence of tiny effusions. IMPRESSION: New subcutaneous emphysema and pneumomediastinum. CODE T. POS: AGW
--- NOTE | 2020-07-02 08:44 | RAD ---
PORTABLE CHEST: Date: 07/02/2020 INDICATION: Post intubation. Comparison made to earlier film. FINDINGS/IMPRESSION: ET tube appears adequately positioned. NG tube passes through the EG junction. Hazy bilateral infiltr ates. Subcutaneous emphysema and pneumomediastinum has been previously noted. POS: AGW
[2020-07-02] MEDS ORDERED: Vecuronium 10 MG VIAL ONE (09:27)
--- NOTE | 2020-07-02 09:36 | PDOC.HOSPP ---
- Subjective Encounter Date: 07/01/20 Encounter Time: 12:30 Subjective: pt up in bed no complains - Objective Vital Signs & Weight: Vital Signs (12 hours) Temp Pulse Resp BP Pulse Ox 07/02/20 08:00 28 H 07/02/20 07:05 99 07/02/20 07:00 98.5 F 07/02/20 06:00 28 H 07/02/20 05:00 99.8 F H 07/02/20 04:00 30 H 07/02/20 03:00 100.9 F H 07/02/20 02:57 154 H 07/02/20 02:56 100.9 F H 07/02/20 02:48 34 H 94 L 07/02/20 02:00 88 44 H 150/75 H 89 L 07/02/20 00:55 98.6 F 98 39 H 155/71 H 94 L 07/01/20 23:27 98.8 F 86 22 H 138/77 94 L 07/01/20 22:00 77 37 H 88 L Weight Admit Weight 213 lb Weight 213 lb Most Recent Monitor Data Heart Rate from ECG 90 NIBP 91/57 NIBP BP-Mean 68 Respiration from ECG 25 SpO2 100 I&O: 07/01/20 07/02/20 07/03/20 06:59 06:59 06:59 Intake Total 480 530.9 60 Output Total 400 725 135 Balance 80 -194.1 -75 Result Diagrams: 07/01/20 04:53 07/01/20 04:53 Hospitalist ROS - Review of Systems Cardiovascular: denies: chest pain, palpitations, orthopnea, paroxysmal noc. dyspnea, edema, light headedness, other Gastrointestinal: denies: nausea, vomiting, abdominal pain, diarrhea, constipation, melena, hematochezia, other Genitourinary: denies: dysuria, frequency, incontinence, hematuria, retention, other - Medication Medications: Active Medications Generic Name Dose Route Start Last Admin Trade Name Freq PRN Reason Stop Dose Admin Acetaminophen 650 mg 06/24/20 00:15 07/02/20 02:56 Acetaminophen 325 Mg Tab PO 650 mg Q4H PRN Administration Headache/Fever/Mild Pain (1-3) Ascorbic Acid 1,000 mg 06/28/20 09:00 07/02/20 08:34 Ascorbic Acid 500 Mg Chewable Tablet PO 1,000 mg DAILY ABDULLAHI Administration Cholecalciferol 2,000 units 06/24/20 09:00 07/02/20 08:33 Cholecalciferol 1,000 Units (25 Mcg) Tab PO 2,000 units DAILY ABDULLAHI Administration Colchicine 0.6 mg 06/28/20 09:00 07/02/20 08:34 Colchicine 0.6 Mg Tab PO 0.6 mg BID ABDULLAHI Administration Dexamethasone 6 mg 06/24/20 06:00 07/02/20 06:08 Dexamethasone 4 Mg/Ml Vial SLOW IVP 6 mg 0600 ABDULLAHI Administration Enoxaparin Sodium 100 mg 06/27/20 21:00 07/02/20 08:34 Enoxaparin Sodium 100 Mg/Ml Syringe SC 100 mg BID ABDULLAHI Administration Ceftriaxone Sodium 1 gm/ 100 mls @ 200 mls/hr 06/26/20 13:00 07/01/20 13:03 Sodium Chloride IVPB 100 mls 1300 ABDULLAHI Administration Lorazepam 2 mg 07/02/20 03:00 07/02/20 08:34 Lorazepam 2 Mg/Ml Vial SLOW IVP 08/01/20 03:00 2 mg Q1H PRN Administration Breakthrough agitation Mometasone Furoate/Formoterol Fumar 1 puff 06/24/20 06:30 07/02/20 07:04 Mometasone 100 Mcg/Formoterol 5 Mcg 120 Puff Inhaler INH 1 puff BID-RT ABDULLAHI Administration Ondansetron HCl 4 mg 06/24/20 00:15 06/25/20 15:14 Ondansetron Pf 4 Mg/2 Ml Vial IVP 4 mg Q6H PRN Administration Nausea/Vomiting use 1st Polyethylene Glycol 17 gm 06/24/20 09:00 07/02/20 08:34 Polyethylene Glycol 3350 17 Gm Packet PO 17 gm DAILY ABDULLAHI Administration Zinc Sulfate 220 mg 06/24/20 09:00 07/02/20 08:33 Zinc Sulfate 220 Mg Cap PO 220 mg DAILY ABDULLAHI Administration Hospitalist Exam Vitals: Vital Signs (12 hours) Temp Pulse Resp BP Pulse Ox 07/02/20 08:00 28 H 07/02/20 07:05 99 07/02/20 07:00 98.5 F 07/02/20 06:00 28 H 07/02/20 05:00 99.8 F H 02/05/21 04:00 30 H 07/02/20 03:00 100.9 F H 07/02/20 02:57 154 H 07/02/20 02:56 100.9 F H 07/02/20 02:48 34 H 94 L 07/02/20 02:00 88 44 H 150/75 H 89 L 07/02/20 00:55 98.6 F 98 39 H 155/71 H 94 L 07/01/20 23:27 98.8 F 86 22 H 138/77 94 L 07/01/20 22:00 77 37 H 88 L Weight Admit Weight 213 lb Weight 213 lb Most Recent Monitor Data Heart Rate from ECG 90 NIBP 91/57 NIBP BP-Mean 68 Respiration from ECG 25 SpO2 100 Neck: supple Heart: no murmur, no gallops Respiratory: no wheezes, no rales, no ronchi Gastrointestinal: soft, non-tender, normal bowel sounds Hosp A/P - Plan Pt very tachypenic, will start pt on bipap. I have explained to him that if this does not work he will need intubation. will continue steroids and dvt ppx. / Nurse called pt hypoxic however there was a technical issue. I did call the pt's and updated her that there is a high chance if he does not do well on bipap he will need intubation. I have answered all her questions. Pt is currently doing well on bipap.
[2020-07-02] MEDS ORDERED: Sodium Chloride 0.9% (PF) 10 ML VIAL FS PRN (09:45)
[2020-07-02] MEDS: Sodium Chloride 0.9% 1,000 ML IV SCH ×2 (09:50→23:50)
--- NOTE | 2020-07-02 09:56 | PRG ---
DATE OF SERVICE: 07/02/2020 TIME SPENT: 30 minutes of critical care time. SUBJECTIVE: ICU staff tells me this patient was transferred in last night and intubated for progressive hypoxemia. He is currently on mechanical ventilation and in supine position. He was on FiO2 of 100%. I try to wean that down, but unfortunately his O2 saturation has not held up. OBJECTIVE: VITAL SIGNS: On exam, his temperature 98.5, pulse 90, blood pressure 91/57, and O2 saturation low 80s to 100. He is currently sedated on fentanyl and propofol. HEENT: Unremarkable. NECK: No JVD. LUNGS: Crackles bilaterally. He has subcutaneous air in his neck. CARDIAC: S1 and S2. Slightly tachycardic. ABDOMEN: Soft and nontender. EXTREMITIES: Edematous. LABORATORY DATA: Sodium 131, potassium 4.5, chloride 96, CO2 of 24, BUN 24, creatinine 0.8, and glucose 108. PH of 7.36, pCO2 of 45, pO2 of 70 on SIMV rate 24, tidal volume 550, PEEP 14, pressure support 10, and FiO2 of 100%. White blood cell count 15.2, hematocrit 25.9, and platelet count 157. The x-ray shows diffuse pulmonary infiltrates and a pneumomediastinum with subcutaneous air. ASSESSMENT: 1. COVID-19 pneumonia. 2. Acute hypoxic respiratory failure requiring mechanical ventilation. 3. Protein-calorie malnutrition. 4. Severe neuromuscular weakness. PLAN: 1. We will go ahead and paralyze the patient. We may have to place him in a prone position. We will start enteral tube feeds and discontinue the PPN. 2. Continue the steroids, anticoagulation, and colchicine. Prognosis is extremely poor. Job ID: [id number]
[2020-07-02] MEDS: Vecuronium 10 MG VIAL IVP PRN ×4 (11:14→20:50)
[2020-07-02] MEDS: cefTRIAXone\\ROCEPHIN 1 GM in Sodium Chloride 0.9% 100 ML IVPB SCH (12:13)
--- NOTE | 2020-07-02 18:42 | PDOC.HOSPP ---
- Subjective Encounter Date: 07/02/20 Encounter Time: 16:00 Subjective: Patient intubated last night - Objective Vital Signs & Weight: Vital Signs (12 hours) Temp Pulse Resp Pulse Ox 07/02/20 18:00 24 H 07/02/20 16:00 21 H 07/02/20 14:36 87 07/02/20 14:00 24 H 07/02/20 12:00 24 H 07/02/20 10:31 99 07/02/20 10:00 97.6 F 24 H 07/02/20 08:00 28 H 95 07/02/20 07:05 99 07/02/20 07:00 98.5 F Weight Admit Weight 213 lb Weight 213 lb Most Recent Monitor Data Heart Rate from ECG 98 NIBP 107/63 NIBP BP-Mean 77 Respiration from ECG 23 SpO2 90 I&O: 07/01/20 07/02/20 07/03/20 06:59 06:59 06:59 Intake Total 480 530.9 979 Output Total 400 725 735 Balance 80 -194.1 244 Result Diagrams: 07/01/20 04:53 07/01/20 04:53 Hospitalist ROS - Medication Medications: Active Medications Generic Name Dose Route Start Last Admin Trade Name Freq PRN Reason Stop Dose Admin Acetaminophen 650 mg 06/24/20 00:15 07/02/20 02:56 Acetaminophen 325 Mg Tab PO 650 mg Q4H PRN Administration Headache/Fever/Mild Pain (1-3) Ascorbic Acid 1,000 mg 06/28/20 09:00 07/02/20 08:34 Ascorbic Acid 500 Mg Chewable Tablet PO 1,000 mg DAILY ABDULLAHI Administration Cholecalciferol 2,000 units 06/24/20 09:00 07/02/20 08:33 Cholecalciferol 1,000 Units (25 Mcg) Tab PO 2,000 units DAILY ABDULLAHI Administration Colchicine 0.6 mg 06/28/20 09:00 07/02/20 08:34 Colchicine 0.6 Mg Tab PO 0.6 mg BID ABDULLAHI Administration Dexamethasone 6 mg 06/24/20 06:00 07/02/20 06:08 Dexamethasone 4 Mg/Ml Vial SLOW IVP 6 mg 0600 ABDULLAHI Administration Enoxaparin Sodium 100 mg 06/27/20 21:00 07/02/20 08:34 Enoxaparin Sodium 100 Mg/Ml Syringe SC 100 mg BID ABDULLAHI Administration Ceftriaxone Sodium 1 gm/ 100 mls @ 200 mls/hr 06/26/20 13:00 07/02/20 12:13 Sodium Chloride IVPB 100 mls 1300 ABDULLAHI Administration Sodium Chloride 1,000 mls @ 75 mls/hr 07/02/20 09:45 07/02/20 09:50 Normal Saline 0.9% IV 1,000 mls .[id number] ABDULLAHI Administration Lorazepam 2 mg 07/02/20 03:00 07/02/20 18:06 Lorazepam 2 Mg/Ml Vial SLOW IVP 08/01/20 03:00 2 mg Q1H PRN Administration Breakthrough agitation Mometasone Furoate/Formoterol Fumar 1 puff 06/24/20 06:30 07/02/20 07:04 Mometasone 100 Mcg/Formoterol 5 Mcg 120 Puff Inhaler INH 1 puff BID-RT ABDULLAHI Administration Ondansetron HCl 4 mg 06/24/20 00:15 06/25/20 15:14 Ondansetron Pf 4 Mg/2 Ml Vial IVP 4 mg Q6H PRN Administration Nausea/Vomiting use 1st Polyethylene Glycol 17 gm 06/24/20 09:00 07/02/20 08:34 Polyethylene Glycol 3350 17 Gm Packet PO 17 gm DAILY ABDULLAHI Administration Vecuronium [place] 10 mg 07/02/20 09:25 07/02/20 14:10 Vecuronium 10 Mg Vial IVP 10 mg Q30MIN PRN Administration Agitation Zinc Sulfate 220 mg 06/24/20 09:00 07/02/20 08:33 Zinc Sulfate 220 Mg Cap PO 220 mg DAILY ABDULLAHI Administration Hospitalist Exam Vitals: Vital Signs (12 hours) Temp Pulse Resp Pulse Ox 07/02/20 18:00 24 H 07/02/20 16:00 21 H 07/02/20 14:36 87 07/02/20 14:00 24 H 07/02/20 12:00 24 H 07/02/20 10:31 99 07/02/20 10:00 97.6 F 24 H 07/02/20 08:00 28 H 95 07/02/20 07:05 99 07/02/20 07:00 98.5 F Weight Admit Weight 213 lb Weight 213 lb Most Recent Monitor Data Heart Rate from ECG 98 NIBP 107/63 NIBP BP-Mean 77 Respiration from ECG 23 SpO2 90 Hosp A/P - Plan Pt very tachypenic, will start pt on bipap. I have explained to him that if this does not work he will need intubation. will continue steroids and dvt ppx. 07/01 Nurse called pt hypoxic however there was a technical issue. I did call the pt's and updated her that there is a high chance if he does not do well on bipap he will need intubation. I have answered all her questions. Pt is trevor julio doing well on bipap. 07/02 patient got intubated last night. We will continue to trend inflammatory markers. Patient currently is on fluids. Tube feedings. DVT prophylaxis. Steroids.
[2020-07-02] MEDS: Propofol 1,000 MG/100 ML VIAL IV PRN (23:53)
[2020-07-03 04:18] LABS: #Eosinphils 0.1 thou/uL (0.0-0.7); #Lymphocytes 1.8 thou/uL (1.20-3.40); #Monocytes 0.3 thou/uL (0.11-0.59); %Basophils 0.2 % (0.0-1.0); %Eosinophils 0.4 % (0.0-10.0); %Lymphocytes 10.5 % (21.0-51.0); %Monocytes 1.6 % (0.0-10.0); %Neutrophils 87.4 % (42.0-75.0); Hemoglobin 8.2 g/dL (14.0-18.0); Mean Corpuscular HGB CONC 29.8 g/dL (32.0-36.0); Mean Corpuscular Hemoglobin 25.5 pg (27.0-31.0); Mean Corpuscular Volume 85.7 fL (78.0-98.0); Mean Platelet Volume 9.2 fL (7.4-10.4); Platelet Count 227 thou/uL (130-400); RBC Distribution Width 14.4 % (11.5-14.5); White Blood Cell (WBC) Count 17.2 thou/uL (4.8-10.8)
[2020-07-03 04:38] LABS: Anion Gap 15 mmol/L (10-20); BUN (Urea Nitrogen) 39 mg/dL (8.4-25.7); Calc. Creatinine Clearance 112 mL/min (70-130); Calcium 8.4 mg/dL (7.8-10.44); Carbon Dioxide 26 mmol/L (23-31); Chloride 101 mmol/L (98-107); Glucose 123 mg/dL (80-115); Magnesium 2.5 mg/dL (1.6-2.6); Potassium 5.2 mmol/L (3.5-5.1); Sodium 137 mmol/L (136-145)
[2020-07-03] MEDS ORDERED: Fentanyl CADD 100 ML ONE ×2 (04:59→18:16)
[2020-07-03] MEDS: Propofol 1,000 MG/100 ML VIAL IV PRN (05:19)
[2020-07-03] MEDS: Dexamethasone 4 mg/ml Vial SLOW IVP SCH (05:19)
[2020-07-03 05:38] LABS: Phosphorus 4.1 mg/dL (2.3-4.7)
[2020-07-03 06:42] LABS: Actual Bicarbonate (HCO3a) 28.3 mEq/L (22-28); Base Excess (BEa) 1.4 mEq/L (-2.0 to +3.0); CO2 Tension 57.4 mmHg (35.0-45.0); Calcium, Ionized (arterial) 1.17 mmol/L (1.12-1.30); Carboxyhemoglobin (COHb) 0.7 gm% (0.0-3.0); Hemoglobin (Hb) 9.2 g/dL (14.0-18.0); O2 Tension (PaO2), arterial 76.8 mmHg (> 80.0); Potassium - ABG Lab 4.99 mmol/L (3.70-5.30); pH, Arterial 7.31 (7.35-7.45)
[2020-07-03 06:46] LABS: Puncture Site RRA
[2020-07-03] MEDS: Mometasone 100 MCG/Formoterol 5 MCG 120 PUFF INHALER INH SCH ×2 (06:48→19:20)
[2020-07-03] MEDS: Ascorbic Acid 500 mg Chewable Tablet PO SCH (07:51)
[2020-07-03] MEDS: Cholecalciferol 1,000 UNITS (25 MCG) TAB PO SCH (07:51)
[2020-07-03] MEDS: Enoxaparin Sodium 100 MG/ML SYRINGE SC SCH ×2 (07:51→21:13)
[2020-07-03] MEDS: Polyethylene Glycol 3350 17 GM Packet PO SCH (07:51)
[2020-07-03] MEDS: Colchicine 0.6 MG TAB PO SCH ×2 (07:52→22:24)
[2020-07-03] MEDS: Vecuronium 10 MG VIAL IVP PRN ×4 (07:52→21:12)
[2020-07-03] MEDS: Lorazepam 2 MG/ML VIAL SLOW IVP PRN ×3 (07:52→17:42)
[2020-07-03] MEDS: Zinc Sulfate 220 MG CAP PO SCH (07:52)
[2020-07-03] MEDS: Pantoprazole 40 MG VIAL IVP SCH (07:52)
--- NOTE | 2020-07-03 09:00 | RAD ---
CHEST 1 VIEW: Date: 07/03/2020 INDICATION: 65-year-old male with pneumonia. COMPARISON: Prior exam dated 07/02/2020. IMPRESSION: Pneumomediastinum and chest wall emphysema is stable. Patient remains intubated with gastric catheter placement. There is bilateral patchy air space disease that is stable. No definite pneumothorax is g rossly evident. POS: BH
[2020-07-03] MEDS: Sodium Chloride 0.9% 1,000 ML IV SCH (12:28)
[2020-07-03] MEDS: cefTRIAXone\\ROCEPHIN 1 GM in Sodium Chloride 0.9% 100 ML IVPB SCH (12:28)
--- NOTE | 2020-07-03 14:38 | RAD ---
Chest AP view INDICATION: History of code COMPARISON: Prior exam dated 07/03/2020 FINDINGS: Lungs: Diffuse airspace disease is stable Cardiac silhouette: Heart size is normal. Extensive pneumomediastinum appears slightly more prominen t. Pulmonary vasculature: Normal Pleural spaces: There are new biapical pneumothoraces. Upper abdomen: No abnormality seen. Osseous structures: No acute osseous abnormality. Additional findings: There is worsening chest wall emphysema and emphysema involving the neck base. Patient remains intubated with gastric catheter placement. IMPRESSION: 1. Stable bilateral pneumonia. 2. Interval development of biapical pneumothoraces. 3. Worsening subcutaneous emphysema and pneumomediastinum. 4. Findings called to Andrew Arredondo RN at 2:35 PM on 07/03/2020
--- NOTE | 2020-07-03 17:25 | PDOC.HOSPP ---
- Subjective Encounter Date: 07/03/20 Encounter Time: 17:25 Subjective: f/u for COVID PNA/hypoxic resp failure with new bilateral apical pneumothoraces not requiring acute intervention or chest tubes. Receiving Dexamethasone/Colchicine/Lovenox/Rocephin/Vit C/Albuterol/Zinc. - Objective Vital Signs & Weight: Vital Signs (12 hours) Temp Pulse Resp Pulse Ox 07/03/20 16:00 24 H 07/03/20 14:54 107 H 07/03/20 14:00 24 H 07/03/20 12:00 24 H 07/03/20 10:10 100 07/03/20 10:00 24 H 07/03/20 08:00 24 H 90 L 07/03/20 07:00 99.7 F H 07/03/20 06:48 114 H 07/03/20 06:00 27 H Weight Admit Weight 213 lb Weight 196 lb 3.382 oz Most Recent Monitor Data Heart Rate from ECG 99 NIBP 99/69 NIBP BP-Mean 79 Respiration from ECG 26 SpO2 94 I&O: 07/02/20 07/03/20 07/04/20 06:59 06:59 06:59 Intake Total 530.9 2530 1348.1 Output Total 725 1510 700 Balance -194.1 1020 648.1 Result Diagrams: 07/03/20 03:48 07/03/20 03:48 Additional Labs: Laboratory Tests 06/26/20 06/26/20 06/27/20 08:56 13:07 11:53 WBC 10.1 12.7 H Hgb 9.5 L 9.1 L D-Dimer 6.25 H Ferritin C-Reactive Protein 06/28/20 06/28/20 06/28/20 08:55 08:55 08:55 WBC Hgb D-Dimer 14.84 H Ferritin 1169.39 H C-Reactive Protein 15.85 H 06/29/20 06/30/20 06/30/20 04:05 14:53 14:53 WBC 14.1 H Hgb 9.0 L D-Dimer Ferritin 1652.44 H C-Reactive Protein 16.13 H 06/30/20 07/01/20 07/02/20 14:53 04:53 08:58 WBC 15.2 H Hgb 8.3 L D-Dimer 7.11 H Ferritin C-Reactive Protein 16.20 H 07/02/20 07/02/20 08:58 08:58 WBC Hgb D-Dimer 8.00 H Ferritin 1777.86 H C-Reactive Protein Radiology Reviewed by me: Yes (PCXR - bilat apical pneumothoraces, bilat infiltrates, lines/tubes in place) EKG Reviewed by me: Yes (Tele - SR in the 's) Hospitalist ROS - Medication Medications: Active Medications Generic Name Dose Route Start Last Admin Trade Name Freq PRN Reason Stop Dose Admin Acetaminophen 650 mg 06/24/20 00:15 07/02/20 02:56 Acetaminophen 325 Mg Tab PO 650 mg Q4H PRN Administration Headache/Fever/Mild Pain (1-3) Ascorbic Acid 1,000 mg 06/28/20 09:00 07/03/20 07:51 Ascorbic Acid 500 Mg Chewable Tablet PO 1,000 mg DAILY ABDULLAHI Administration Cholecalciferol 2,000 units 06/24/20 09:00 07/03/20 07:51 Cholecalciferol 1,000 Units (25 Mcg) Tab PO 2,000 units DAILY ABDULLAHI Administration Colchicine 0.6 mg 06/28/20 09:00 07/03/20 07:52 Colchicine 0.6 Mg Tab PO 0.6 mg BID ABDULLAHI Administration Dexamethasone 6 mg 06/24/20 06:00 07/03/20 05:19 Dexamethasone 4 Mg/Ml Vial SLOW IVP 6 mg 0600 ABDULLAHI Administration Enoxaparin Sodium 100 mg 06/27/20 21:00 07/03/20 07:51 Enoxaparin Sodium 100 Mg/Ml Syringe SC 100 mg BID ABDULLAHI Administration Ceftriaxone Sodium 1 gm/ 100 mls @ 200 mls/hr 06/26/20 13:00 07/03/20 12:28 Sodium Chloride IVPB 100 mls 1300 ABDULLAHI Administration Sodium Chloride 1,000 mls @ 75 mls/hr 07/02/20 09:45 07/03/20 12:28 Normal Saline 0.9% IV 1,000 mls .[id number] ABDULLAHI Administration Lorazepam 2 mg 07/02/20 03:00 07/03/20 13:56 Lorazepam 2 Mg/Ml Vial SLOW IVP 08/01/20 03:00 2 mg Q1H PRN Administration Breakthrough agitation Mometasone Furoate/Formoterol Fumar 1 puff 06/24/20 06:30 07/03/20 06:48 Mometasone 100 Mcg/Formoterol 5 Mcg 120 Puff Inhaler INH 1 puff BID-RT ABDULLAHI Administration Ondansetron HCl 4 mg 06/24/20 00:15 06/25/20 15:14 Ondansetron Pf 4 Mg/2 Ml Vial IVP 4 mg Q6H PRN Administration Nausea/Vomiting use 1st Pantoprazole Sodium 40 mg 07/03/20 09:00 07/03/20 07:52 Pantoprazole 40 Mg Vial IVP 40 mg DAILY ABDULLAHI Administration Polyethylene Glycol 17 gm 06/24/20 09:00 07/03/20 07:51 Polyethylene Glycol 3350 17 Gm Packet PO 17 gm DAILY ABDULLAHI Administration Propofol 1,000 mg 07/02/20 03:00 07/03/20 05:19 Propofol 1,000 Mg/100 Ml Vial IV 08/01/20 03:00 1,000 mg INF PRN Administration TO ACHIEVE GOAL RASS Protocol Vecuronium [place] 10 mg 07/02/20 09:25 07/03/20 13:56 Vecuronium 10 Mg Vial IVP 10 mg Q30MIN PRN Administration Agitation Zinc Sulfate 220 mg 06/24/20 09:00 07/03/20 07:52 Zinc Sulfate 220 Mg Cap PO 220 mg DAILY ABDULLAHI Administration Hospitalist Exam Vitals: Vital Signs (12 hours) Temp Pulse Resp Pulse Ox 07/03/20 16:00 24 H 07/03/20 14:54 107 H 07/03/20 14:00 24 H 07/03/20 12:00 24 H 07/03/20 10:10 100 07/03/20 10:00 24 H 07/03/20 08:00 24 H 90 L 07/03/20 07:00 99.7 F H 07/03/20 06:48 114 H 07/03/20 06:00 27 H Weight Admit Weight 213 lb Weight 196 lb 3.382 oz Most Recent Monitor Data Heart Rate from ECG 99 NIBP 99/69 NIBP BP-Mean 79 Respiration from ECG 26 SpO2 94 General - other findings: sedate on mech vent Eye: PERRL, anicteric sclera ENT: normocephalic atraumatic, no oropharyngeal lesions ENT - other findings: ETT in place Neck: supple, symmetric, no JVD, no thyromegaly, no lymphadenopathy Heart: RRR, no murmur, no gallops, no rubs, normal peripheral pulses Heart - other findings: S1, S2 Respiratory - other findings: diminished in bases, crepitus noted on clavicle region Gastrointestinal: soft, non-tender, non-distended, normal bowel sounds, no palpable masses Extremities: no cyanosis, no clubbing, no edema Skin: normal turgor Neurological - other findings: sedate on mech ventilation Musculoskeletal: generalized weakness Psychiatric: somnolent, lethargic Hosp A/P (1) Acute respiratory failure due to COVID-19 Code(s): U07.1 - COVID-19; J96.00 - ACUTE RESPIRATORY FAILURE, UNSP W HYPOXIA OR HYPERCAPNIA Status: Acute Plan: Continue mech ventilation, wean as clinically indicated (2) Pneumonia due to 2019 novel coronavirus Code(s): U07.1 - COVID-19; J12.82 - PNEUMONIA DUE TO CORONAVIRUS DISEASE 2019 Status: Acute Plan: Continue Dexamethasone/Rocephin/Lovenox/Clonidine/Albuterol/Vit C/Zinc (3) Bilateral pneumothoraces Code(s): J93.9 - PNEUMOTHORAX, UNSPECIFIED Status: Acute Plan: Small pneumothoraces noted, continue serial monitoring and CXR, no acute intervention currently (4) Anemia, normocytic normochromic Code(s): D64.9 - ANEMIA, UNSPECIFIED Status: Chronic Plan: ? chronic condition, may need additional outpt workup after resolution of COVID - Plan continue antibiotics, manager social responsibility, respiratory therapy, DVT proph w/SCDs Continue critical support Continue Mech ventilation Continue Rocephin/Dexamethasone Isolation protocol AM lab: BMP, CBC, CRP, Ferritin PCXR in am
--- NOTE | 2020-07-03 17:37 | PRG ---
DATE OF SERVICE: 07/03/2020 SUBJECTIVE: Mr. Walls remains mechanically ventilated with diffuse infiltrates. OBJECTIVE: VITAL SIGNS: FiO2 is 70%, oximetry is in the mid 90s. LUNGS: Remarkable for equal breath sounds. HEART: Regular rhythm. ABDOMEN: Soft. IMAGING: Chest x-ray shows subcu air this morning. This afternoon, chest x-ray shows subcu air and tiny apical pneumos. My opinion these are not big enough to justify large chest tube placement. LABORATORY DATA: White count 17.2, hemoglobin 8.2, platelets 227. Sodium 137, potassium 5.2, chloride 101, bicarb 26, BUN 39, creatinine 0.9. IMPRESSION: 1. COVID pneumonia with respiratory failure. 2. Critical illness weakness. 3. Tiny apical pneumothoraces. No indication for chest tube at this time. 4. He has been in the hospital now 10 days. 5. He was diagnosed with COVID seven days prior to being transferred here from [facility]. We will continue supportive care. His prognosis is quite poor. Critical care time 30 min. Job ID: [id number] MTDD
[2020-07-03] MEDS: Fentanyl CADD 100 ML IV SCH (18:20)
[2020-07-04] MEDS: Vecuronium 10 MG VIAL IVP PRN ×7 (00:21→19:53)
[2020-07-04] MEDS: Sodium Chloride 0.9% 1,000 ML IV SCH ×2 (01:37→15:38)
[2020-07-04 04:05] LABS: #Eosinphils 0.1 thou/uL (0.0-0.7); #Lymphocytes 2.6 thou/uL (1.20-3.40); #Monocytes 0.2 thou/uL (0.11-0.59); #Neutrophils 13.9 thou/uL (1.40-6.50); %Basophils 0.1 % (0.0-1.0); %Eosinophils 0.8 % (0.0-10.0); %Lymphocytes 15.3 % (21.0-51.0); %Neutrophils 82.8 % (42.0-75.0); Hemoglobin 8.5 g/dL (14.0-18.0); Mean Corpuscular HGB CONC 28.9 g/dL (32.0-36.0); Mean Corpuscular Volume 86.6 fL (78.0-98.0); Mean Platelet Volume 9.5 fL (7.4-10.4); Platelet Count 252 thou/uL (130-400); RBC Distribution Width 14.4 % (11.5-14.5); White Blood Cell (WBC) Count 16.8 thou/uL (4.8-10.8)
[2020-07-04 04:31] LABS: Anion Gap 15 mmol/L (10-20); BUN (Urea Nitrogen) 47 mg/dL (8.4-25.7); Calc. Creatinine Clearance 117 mL/min (70-130); Calcium 8.4 mg/dL (7.8-10.44); Carbon Dioxide 26 mmol/L (23-31); Chloride 103 mmol/L (98-107); Glucose 138 mg/dL (80-115); Potassium 5.2 mmol/L (3.5-5.1); Sodium 139 mmol/L (136-145)
[2020-07-04] MEDS: Dexamethasone 4 mg/ml Vial SLOW IVP SCH (05:11)
[2020-07-04] MEDS: Lorazepam 2 MG/ML VIAL SLOW IVP PRN ×5 (05:36→19:53)
[2020-07-04] MEDS: Mometasone 100 MCG/Formoterol 5 MCG 120 PUFF INHALER INH SCH ×2 (07:41→18:51)
--- NOTE | 2020-07-04 07:42 | RAD ---
CHEST 1 VIEW: Date: 07/04/2020 INDICATION: History of pneumonia. COMPARISON: Prior exam dated 07/03/2020 at 1407 hours. IMPRESSION: Small biapical pneumothoraces persist. Subcutaneous emphysema is similar. ET tube and gastric cathete r are unchanged. Pneumomediastinum is similar. POS: BH
[2020-07-04] MEDS ORDERED: Fentanyl CADD 100 ML ONE ×3 (07:45→21:19)
[2020-07-04] MEDS: Polyethylene Glycol 3350 17 GM Packet PO SCH (09:34)
[2020-07-04] MEDS: Enoxaparin Sodium 100 MG/ML SYRINGE SC SCH ×2 (09:34→20:07)
[2020-07-04] MEDS: Pantoprazole 40 MG VIAL IVP SCH (09:34)
[2020-07-04] MEDS: Cholecalciferol 1,000 UNITS (25 MCG) TAB PO SCH (09:35)
[2020-07-04] MEDS: Ascorbic Acid 500 mg Chewable Tablet PO SCH (09:35)
[2020-07-04] MEDS: Zinc Sulfate 220 MG CAP PO SCH (09:35)
[2020-07-04] MEDS: cefTRIAXone\\ROCEPHIN 1 GM in Sodium Chloride 0.9% 100 ML IVPB SCH (13:19)
[2020-07-04] MEDS: Colchicine 0.6 MG TAB PO SCH ×2 (13:21→20:07)
--- NOTE | 2020-07-04 15:23 | PRG ---
DATE OF SERVICE: 07/04/2020 SUBJECTIVE: Eligio aWlls remains mechanically ventilated. Chest x-ray shows a tiny pneumothorax. OBJECTIVE: VITAL SIGNS: Heart rate is 100, blood pressure is 112/71, FiO2 is 70%. LUNGS: Remarkable for coarse equal breath sounds. HEART: Regular rhythm. ABDOMEN: Soft. EXTREMITIES: Without asymmetry. LABORATORY DATA: White count 16.8, hemoglobin 8.5, platelets 252. Sodium 139, potassium 5.2, chloride 103, bicarb 26, BUN 27, creatinine 0.8. IMPRESSION AND PLAN: 1. Respiratory failure associated with COVID pneumonia. 2. Critical illness weakness. 3. Tiny apical pneumothorax, not requiring chest tube at this time. 4. We will continue to follow. Job ID: [id number]
--- NOTE | 2020-07-04 18:59 | PDOC.HOSPP ---
- Subjective Encounter Date: 07/04/20 Encounter Time: 18:40 Subjective: f/u for COVID PNA/resp failure with mech ventilation receiving Dexamethasone/Colchicine/Lovenox/Vit C/Zinc/D3. - Objective Vital Signs & Weight: Vital Signs (12 hours) Temp Pulse Resp Pulse Ox 07/04/20 16:00 98.3 F 24 H 07/04/20 14:28 100 07/04/20 14:00 24 H 07/04/20 13:00 98.7 F 07/04/20 12:00 25 H 07/04/20 11:01 109 H 07/04/20 10:00 24 H 07/04/20 08:00 100.2 F H 26 H 94 L 07/04/20 07:41 117 H Weight Admit Weight 213 lb Weight 200 lb 2.876 oz Most Recent Monitor Data Heart Rate from ECG 98 NIBP 118/67 NIBP BP-Mean 84 Respiration from ECG 24 SpO2 89 I&O: 07/03/20 07/04/20 07/05/20 06:59 06:59 06:59 Intake Total 2530 2765.1 420 Output Total 1510 1375 755 Balance 1020 1390.1 -335 Result Diagrams: 07/04/20 03:52 07/04/20 03:52 Additional Labs: Laboratory Tests 06/26/20 06/26/20 06/27/20 08:56 13:07 11:53 WBC 10.1 12.7 H Hgb 9.5 L 9.1 L D-Dimer 6.25 H Ferritin C-Reactive Protein 06/28/20 06/28/20 06/28/20 08:55 08:55 08:55 WBC Hgb D-Dimer 14.84 H Ferritin 1169.39 H C-Reactive Protein 15.85 H 06/29/20 06/30/20 06/30/20 04:05 14:53 14:53 WBC 14.1 H Hgb 9.0 L D-Dimer Ferritin 1652.44 H C-Reactive Protein 16.13 H 06/30/20 07/01/20 07/02/20 14:53 04:53 08:58 WBC 15.2 H Hgb 8.3 L D-Dimer 7.11 H Ferritin C-Reactive Protein 16.20 H 07/02/20 07/02/20 07/04/20 08:58 08:58 03:30 WBC Hgb D-Dimer 8.00 H Ferritin 1777.86 H C-Reactive Protein 16.88 H 07/04/20 03:52 WBC Hgb D-Dimer Ferritin 1033.36 H C-Reactive Protein Radiology Reviewed by me: Yes (PCXR - lines/tubes in position, small apical pneumothorax) EKG Reviewed by me: Yes (Tele - SR) Hospitalist ROS - Medication Medications: Active Medications Generic Name Dose Route Start Last Admin Trade Name Freq PRN Reason Stop Dose Admin Acetaminophen 650 mg 06/24/20 00:15 07/02/20 02:56 Acetaminophen 325 Mg Tab PO 650 mg Q4H PRN Administration Headache/Fever/Mild Pain (1-3) Ascorbic Acid 1,000 mg 06/28/20 09:00 07/04/20 09:35 Ascorbic Acid 500 Mg Chewable Tablet PO 1,000 mg DAILY ABDULLAHI Administration Cholecalciferol 2,000 units 06/24/20 09:00 07/04/20 09:35 Cholecalciferol 1,000 Units (25 Mcg) Tab PO 2,000 units DAILY ABDULLAHI Administration Colchicine 0.6 mg 06/28/20 09:00 07/04/20 13:21 Colchicine 0.6 Mg Tab PO 0.6 mg BID ABDULLAHI Administration Dexamethasone 6 mg 06/24/20 06:00 07/04/20 05:11 Dexamethasone 4 Mg/Ml Vial SLOW IVP 6 mg 0600 ABDULLAHI Administration Enoxaparin Sodium 100 mg 06/27/20 21:00 07/04/20 09:34 Enoxaparin Sodium 100 Mg/Ml Syringe SC 100 mg BID ABDULLAHI Administration Ceftriaxone Sodium 1 gm/ 100 mls @ 200 mls/hr 06/26/20 13:00 07/04/20 13:19 Sodium Chloride IVPB 100 mls 1300 ABDULLAHI Administration Fentanyl 100 mls @ 0 mls/hr 07/02/20 03:00 07/03/20 18:20 Fentanyl Cadd IV 08/01/20 03:00 100 mls INF ABDULLAHI Administration Protocol Per Protocol Sodium Chloride 1,000 mls @ 75 mls/hr 07/02/20 09:45 07/04/20 15:38 Normal Saline 0.9% IV 1,000 mls .[id number] ABDULLAHI Administration Lorazepam 2 mg 07/02/20 03:00 07/04/20 16:02 Lorazepam 2 Mg/Ml Vial SLOW IVP 08/01/20 03:00 2 mg Q1H PRN Administration Breakthrough agitation Mometasone Furoate/Formoterol Fumar 1 puff 06/24/20 06:30 07/04/20 18:51 Mometasone 100 Mcg/Formoterol 5 Mcg 120 Puff Inhaler INH 1 puff BID-RT ABDULLAHI Administration Ondansetron HCl 4 mg 06/24/20 00:15 06/25/20 15:14 Ondansetron Pf 4 Mg/2 Ml Vial IVP 4 mg Q6H PRN Administration Nausea/Vomiting use 1st Pantoprazole Sodium 40 mg 07/03/20 09:00 07/04/20 09:34 Pantoprazole 40 Mg Vial IVP 40 mg DAILY ABDULLAHI Administration Polyethylene Glycol 17 gm 06/24/20 09:00 07/04/20 09:34 Polyethylene Glycol 3350 17 Gm Packet PO 17 gm DAILY ABDULLAHI Administration Propofol 1,000 mg 07/02/20 03:00 07/03/20 05:19 Propofol 1,000 Mg/100 Ml Vial IV 08/01/20 03:00 1,000 mg INF PRN Administration TO ACHIEVE GOAL RASS Protocol Vecuronium [place] 10 mg 07/02/20 09:25 07/04/20 16:02 Vecuronium 10 Mg Vial IVP 10 mg Q30MIN PRN Administration Agitation Zinc Sulfate 220 mg 06/24/20 09:00 07/04/20 09:35 Zinc Sulfate 220 Mg Cap PO 220 mg DAILY ABDULLAHI Administration Hospitalist Exam Vitals: Vital Signs (12 hours) Temp Pulse Resp Pulse Ox 07/04/20 16:00 98.3 F 24 H 07/04/20 14:28 100 07/04/20 14:00 24 H 07/04/20 13:00 98.7 F 07/04/20 12:00 25 H 07/04/20 11:01 109 H 07/04/20 10:00 24 H 07/04/20 08:00 100.2 F H 26 H 94 L 07/04/20 07:41 117 H Weight Admit Weight 213 lb Weight 200 lb 2.876 oz Most Recent Monitor Data Heart Rate from ECG 98 NIBP 118/67 NIBP BP-Mean 84 Respiration from ECG 24 SpO2 89 General - other findings: sedate on mech vent Eye: anicteric sclera ENT: normocephalic atraumatic, no oropharyngeal lesions ENT - other findings: ETT in place Neck: supple, symmetric, no JVD, no thyromegaly, no lymphadenopathy Heart: RRR, no gallops, no rubs, normal peripheral pulses Heart - other findings: S1, S2 Respiratory: no wheezes Respiratory - other findings: diminished in bases Gastrointestinal: soft, non-tender, non-distended, normal bowel sounds, no palpable masses, no hepatomegaly Extremities: no cyanosis, no clubbing, no edema Skin: normal turgor Neurological - other findings: sedate on mech vent Psychiatric: somnolent, lethargic Hosp A/P (1) Acute respiratory failure due to COVID-19 Code(s): U07.1 - COVID-19; J96.00 - ACUTE RESPIRATORY FAILURE, UNSP W HYPOXIA OR HYPERCAPNIA Status: Acute Plan: Continue mech ventilation, general pulm support (2) Pneumonia due to 2019 novel coronavirus Code(s): U07.1 - COVID-19; J12.82 - PNEUMONIA DUE TO CORONAVIRUS DISEASE 2019 Status: Acute Plan: Continue Rocephin/Colchicine/Dexamethasone/Vit C/D3/Zinc (3) Bilateral pneumothoraces Code(s): J93.9 - PNEUMOTHORAX, UNSPECIFIED Status: Acute Plan: Small pneumothoraces, no intervention recommended, serial monitoring (4) Anemia, normocytic normochromic Code(s): D64.9 - ANEMIA, UNSPECIFIED Status: Chronic - Plan continue antibiotics, social insurance adviser, respiratory therapy, DVT proph w/SCDs Continue critical support Continue Mech ventilation Continue Rocephin/Dexamethasone/Colchicine/Vit C/D3/Zinc/Lovenox Isolation protocol AM lab: BMP, CBC, CRP, Ferritin PCXR in am
--- NOTE | 2020-07-05 00:13 | RAD ---
RADIOGRAPH CHEST 1 VIEW: DATE: 07/05/2020 TIME: 11:58 PM HISTORY: 65-year-old male with dyspnea and worsening subcutaneous emphysema COMPARISON: 07/05/2020 4:53 AM FINDINGS: Diffuse severe subcutaneous emphysema of neck and upper chest. Small pneumothorax on right. Small pneumothorax on the left. ETT and esophagogastric tube remain. Diffuse bilateral mixed interstitial and alveolar pulmonary densities are unchanged. No interval change overall. IMPRESSION: No interval change
[2020-07-05] MEDS: Lorazepam 2 MG/ML VIAL SLOW IVP PRN ×6 (00:35→21:41)
[2020-07-05] MEDS: Vecuronium 10 MG VIAL IVP PRN ×6 (00:35→21:41)
[2020-07-05] MEDS: Sodium Chloride 0.9% 1,000 ML IV SCH ×2 (04:11→17:09)
[2020-07-05 04:26] LABS: #Eosinphils 0.1 thou/uL (0.0-0.7); #Lymphocytes 0.9 thou/uL (1.20-3.40); #Monocytes 0.1 thou/uL (0.11-0.59); #Neutrophils 7.1 thou/uL (1.40-6.50); %Basophils 0.2 % (0.0-1.0); %Eosinophils 0.7 % (0.0-10.0); %Lymphocytes 11.1 % (21.0-51.0); %Monocytes 1.3 % (0.0-10.0); %Neutrophils 86.7 % (42.0-75.0); Mean Corpuscular HGB CONC 29.3 g/dL (32.0-36.0); Mean Corpuscular Hemoglobin 25.3 pg (27.0-31.0); Mean Corpuscular Volume 86.6 fL (78.0-98.0); Mean Platelet Volume 9.5 fL (7.4-10.4); Platelet Count 226 thou/uL (130-400); RBC Distribution Width 14.7 % (11.5-14.5); Red Blood Cell (RBC) Count 3.55 mill/uL (4.70-6.10); White Blood Cell (WBC) Count 8.2 thou/uL (4.8-10.8)
[2020-07-05 04:40] LABS: Anion Gap 14 mmol/L (10-20); BUN (Urea Nitrogen) 45 mg/dL (8.4-25.7); Calc. Creatinine Clearance 126 mL/min (70-130); Calcium 8.1 mg/dL (7.8-10.44); Carbon Dioxide 28 mmol/L (23-31); Chloride 106 mmol/L (98-107); Glucose 150 mg/dL (80-115); Potassium 4.7 mmol/L (3.5-5.1); Sodium 143 mmol/L (136-145)
[2020-07-05] MEDS: Dexamethasone 4 mg/ml Vial SLOW IVP SCH (05:08)
[2020-07-05] MEDS: Mometasone 100 MCG/Formoterol 5 MCG 120 PUFF INHALER INH SCH ×2 (07:52→18:55)
--- NOTE | 2020-07-05 08:50 | RAD ---
AP CHEST: Date: 07/05/2020 HISTORY: CCU and pneumonia follow-up. COMPARISON: 07/04/2020. FINDINGS: ET tube and NG tube again noted. Subcutaneous emphysema. I cannot exclude small apical pneumothoraces . Diffuse interstitial and hazy alveolar infiltrates bilaterally. IMPRESSION: No evidence of significant change from yesterday. POS: AGW
[2020-07-05] MEDS: Enoxaparin Sodium 100 MG/ML SYRINGE SC SCH ×2 (09:00→20:09)
[2020-07-05] MEDS: Pantoprazole 40 MG VIAL IVP SCH (09:00)
[2020-07-05] MEDS: Ascorbic Acid 500 mg Chewable Tablet PO SCH (09:00)
[2020-07-05] MEDS: Zinc Sulfate 220 MG CAP PO SCH (09:00)
[2020-07-05] MEDS: Colchicine 0.6 MG TAB PO SCH ×2 (09:00→20:09)
[2020-07-05] MEDS: Polyethylene Glycol 3350 17 GM Packet PO SCH (09:00)
[2020-07-05] MEDS: Cholecalciferol 1,000 UNITS (25 MCG) TAB PO SCH (09:01)
[2020-07-05] MEDS ORDERED: Fentanyl CADD 100 ML ONE (10:15)
--- NOTE | 2020-07-05 10:38 | PRG ---
DATE OF SERVICE: 07/05/2020 CRITICAL CARE TIME: 35 minutes. SUBJECTIVE: The patient remains intubated on mechanical ventilation. He is in a supine position. OBJECTIVE: VITAL SIGNS: His temperature is 100.4 with a T-max of 100.4, pulse 113, blood pressure 124/74, O2 saturation 95%. HEENT: He has extensive subcutaneous air extending up his neck into his facial region. NECK: Subcutaneous air prominent. LUNGS: Coarse breath sounds bilaterally. CARDIOVASCULAR: S1 and S2. Tachycardic. ABDOMEN: Soft. EXTREMITIES: Edematous. LABORATORY DATA: White blood cell count 8.2, hematocrit 30, and platelet count 226. Sodium 143, potassium 4.7, chloride 106, CO2 of 28, BUN 45, creatinine 0.7, glucose 150. IMAGING DATA: X-ray shows extensive subcutaneous air, likely from a pneumomediastinum. ASSESSMENT: 1. COVID-19 pneumonia. 2. Acute hypoxic respiratory failure requiring mechanical ventilation - currently requiring FiO2 of 75%, PEEP of 13. PLAN: Continue steroids, anticoagulation with enoxaparin and colchicine. He is currently on hospital day 12. At some point, he will need tracheostomy. His chance for recovery seem poor at this point. Job ID: [id number]
[2020-07-05] MEDS: cefTRIAXone\\ROCEPHIN 1 GM in Sodium Chloride 0.9% 100 ML IVPB SCH (14:12)
--- NOTE | 2020-07-05 18:30 | PDOC.HOSPP ---
- Subjective Encounter Date: 07/05/20 Encounter Time: 18:00 Subjective: f/u for COVID PNA/resp failure on mech ventilation with AC FIO2 80%. - Objective Vital Signs & Weight: Vital Signs (12 hours) Temp Pulse Resp BP Pulse Ox 07/05/20 17:00 100.6 F H 07/05/20 16:00 32 H 07/05/20 14:42 113 H 110/70 07/05/20 14:00 32 H 07/05/20 12:00 99.9 F H 32 H 07/05/20 11:22 116 H 07/05/20 10:00 24 H 07/05/20 08:00 100.4 F H 27 H 96 07/05/20 07:43 113 H 121/77 Weight Admit Weight 213 lb Weight 201 lb 4.513 oz Most Recent Monitor Data Heart Rate from ECG 115 NIBP 114/71 NIBP BP-Mean 85 Respiration from ECG 34 SpO2 89 I&O: 07/04/20 07/05/20 07/06/20 06:59 06:59 06:59 Intake Total 2765.1 3006.7 247.9 Output Total 1375 2040 910 Balance 1390.1 966.7 -662.1 Result Diagrams: 07/05/20 03:50 07/05/20 03:50 Additional Labs: Laboratory Tests 06/26/20 06/26/20 06/27/20 08:56 13:07 11:53 WBC 10.1 12.7 H Hgb 9.5 L 9.1 L D-Dimer 6.25 H Ferritin C-Reactive Protein 06/28/20 06/28/20 06/28/20 08:55 08:55 08:55 WBC Hgb D-Dimer 14.84 H Ferritin 1169.39 H C-Reactive Protein 15.85 H 06/29/20 06/30/20 06/30/20 04:05 14:53 14:53 WBC 14.1 H Hgb 9.0 L D-Dimer Ferritin 1652.44 H C-Reactive Protein 16.13 H 06/30/20 07/01/20 07/02/20 14:53 04:53 08:58 WBC 15.2 H Hgb 8.3 L D-Dimer 7.11 H Ferritin C-Reactive Protein 16.20 H 07/02/20 07/02/20 07/04/20 08:58 08:58 03:30 WBC Hgb D-Dimer 8.00 H Ferritin 1777.86 H C-Reactive Protein 16.88 H 07/04/20 03:52 WBC Hgb D-Dimer Ferritin 1033.36 H C-Reactive Protein EKG Reviewed by me: Yes (Tele - Sinus tachycardia) Hospitalist ROS - Medication Medications: Active Medications Generic Name Dose Route Start Last Admin Trade Name Freq PRN Reason Stop Dose Admin Acetaminophen 650 mg 06/24/20 00:15 07/02/20 02:56 Acetaminophen 325 Mg Tab PO 650 mg Q4H PRN Administration Headache/Fever/Mild Pain (1-3) Ascorbic Acid 1,000 mg 06/28/20 09:00 07/05/20 09:00 Ascorbic Acid 500 Mg Chewable Tablet PO 1,000 mg DAILY ABDULLAHI Administration Cholecalciferol 2,000 units 06/24/20 09:00 07/05/20 09:01 Cholecalciferol 1,000 Units (25 Mcg) Tab PO 2,000 units DAILY ABDULLAHI Administration Colchicine 0.6 mg 06/28/20 09:00 07/05/20 09:00 Colchicine 0.6 Mg Tab PO 0.6 mg BID ABDULLAHI Administration Dexamethasone 6 mg 06/24/20 06:00 07/05/20 05:08 Dexamethasone 4 Mg/Ml Vial SLOW IVP 6 mg 0600 ABDULLAHI Administration Enoxaparin Sodium 100 mg 06/27/20 21:00 07/05/20 09:00 Enoxaparin Sodium 100 Mg/Ml Syringe SC 100 mg BID ABDULLAHI Administration Ceftriaxone Sodium 1 gm/ 100 mls @ 200 mls/hr 06/26/20 13:00 07/05/20 14:12 Sodium Chloride IVPB 100 mls 1300 ABDULLAHI Administration Fentanyl 100 mls @ 0 mls/hr 07/02/20 03:00 07/03/20 18:20 Fentanyl Cadd IV 08/01/20 03:00 100 mls INF ABDULLAHI Administration Protocol Per Protocol Sodium Chloride 1,000 mls @ 75 mls/hr 07/02/20 09:45 07/05/20 17:09 Normal Saline 0.9% IV 1,000 mls .[id number] ABDULLAHI Administration Lorazepam 2 mg 07/02/20 03:00 07/05/20 18:05 Lorazepam 2 Mg/Ml Vial SLOW IVP 08/01/20 03:00 2 mg Q1H PRN Administration Breakthrough agitation Mometasone Furoate/Formoterol Fumar 1 puff 06/24/20 06:30 07/05/20 07:52 Mometasone 100 Mcg/Formoterol 5 Mcg 120 Puff Inhaler INH 1 puff BID-RT ABDULLAHI Administration Ondansetron HCl 4 mg 06/24/20 00:15 06/25/20 15:14 Ondansetron Pf 4 Mg/2 Ml Vial IVP 4 mg Q6H PRN Administration Nausea/Vomiting use 1st Pantoprazole Sodium 40 mg 07/03/20 09:00 07/05/20 09:00 Pantoprazole 40 Mg Vial IVP 40 mg DAILY ABDULLAHI Administration Polyethylene Glycol 17 gm 06/24/20 09:00 07/05/20 09:00 Polyethylene Glycol 3350 17 Gm Packet PO 17 gm DAILY ABDULLAHI Administration Propofol 1,000 mg 07/02/20 03:00 07/03/20 05:19 Propofol 1,000 Mg/100 Ml Vial IV 08/01/20 03:00 1,000 mg INF PRN Administration TO ACHIEVE GOAL RASS Protocol Vecuronium [place] 10 mg 07/02/20 09:25 07/05/20 18:04 Vecuronium 10 Mg Vial IVP 10 mg Q30MIN PRN Administration Agitation Zinc Sulfate 220 mg 06/24/20 09:00 07/05/20 09:00 Zinc Sulfate 220 Mg Cap PO 220 mg DAILY ABDULLAHI Administration Hospitalist Exam Vitals: Vital Signs (12 hours) Temp Pulse Resp BP Pulse Ox 07/05/20 17:00 100.6 F H 07/05/20 16:00 32 H 07/05/20 14:42 113 H 110/70 07/05/20 14:00 32 H 07/05/20 12:00 99.9 F H 32 H 07/05/20 11:22 116 H 07/05/20 10:00 24 H 07/05/20 08:00 100.4 F H 27 H 96 07/05/20 07:43 113 H 121/77 Weight Admit Weight 213 lb Weight 201 lb 4.513 oz Most Recent Monitor Data Heart Rate from ECG 115 NIBP 114/71 NIBP BP-Mean 85 Respiration from ECG 34 SpO2 89 General Appearance: ill appearing General - other findings: sedate on mech vent Eye: anicteric sclera ENT: normocephalic atraumatic, no oropharyngeal lesions ENT - other findings: subcutaneous emphysema of neck/jaw, ETT in place Neck: supple, no JVD, no thyromegaly, no lymphadenopathy Heart: RRR, no gallops, no rubs, normal peripheral pulses Heart - other findings: S1, S2 Respiratory: rhonchi, tachypneic Respiratory - other findings: diminished in bases Gastrointestinal: soft, non-tender, non-distended, normal bowel sounds, no palpable masses Extremities - other findings: subq emphysema in bilat upper extremities extending to hands Skin: normal turgor Neurological - other findings: sedate on mech vent Psychiatric: somnolent, lethargic Hosp A/P (1) Acute respiratory failure due to COVID-19 Code(s): U07.1 - COVID-19; J96.00 - ACUTE RESPIRATORY FAILURE, UNSP W HYPOXIA OR HYPERCAPNIA Status: Acute Plan: Continue mech vent with AC, pulmonary support, considering tracheostomy (2) Pneumonia due to 2019 novel coronavirus Code(s): U07.1 - COVID-19; J12.82 - PNEUMONIA DUE TO CORONAVIRUS DISEASE 2019 Status: Acute Plan: Continue Rocephin/Dexamethasone/Colchicine/Lovenox (3) Bilateral pneumothoraces Code(s): J93.9 - PNEUMOTHORAX, UNSPECIFIED Status: Acute Plan: Subcutaneous emphysema progressing to bilat upper extremities into hands (4) Anemia, normocytic normochromic Code(s): D64.9 - ANEMIA, UNSPECIFIED Status: Chronic - Plan duffy catheter, continue antibiotics, clinical social worker, respiratory therapy, DVT proph w/SCDs Continue critical support Continue Mech ventilation Continue Rocephin/Dexamethasone/Colchicine/Vit C/D3/Zinc/Lovenox Isolation protocol ? tracheostomy AM lab: BMP, CBC, CRP, Ferritin PCXR in am
[2020-07-05] MEDS: Acetaminophen 325 MG TAB PO PRN (20:28)
[2020-07-06] MEDS ORDERED: Fentanyl CADD 0 ML ONE (00:16)
[2020-07-06] MEDS ORDERED: Fentanyl CADD 100 ML ONE ×2 (00:17→13:16)
[2020-07-06] MEDS: Fentanyl CADD 100 ML IV SCH (00:20)
[2020-07-06] MEDS: Vecuronium 10 MG VIAL IVP PRN ×8 (00:21→18:28)
[2020-07-06] MEDS: Lorazepam 2 MG/ML VIAL SLOW IVP PRN ×7 (00:21→16:15)
[2020-07-06 04:46] LABS: #Eosinphils 0.1 thou/uL (0.0-0.7); #Lymphocytes 0.9 thou/uL (1.20-3.40); #Monocytes 0.1 thou/uL (0.11-0.59); #Neutrophils 4.7 thou/uL (1.40-6.50); %Eosinophils 1.6 % (0.0-10.0); %Lymphocytes 15.5 % (21.0-51.0); %Monocytes 2.1 % (0.0-10.0); %Neutrophils 80.9 % (42.0-75.0); Hemoglobin 7.7 g/dL (14.0-18.0); Mean Corpuscular HGB CONC 29.3 g/dL (32.0-36.0); Mean Corpuscular Hemoglobin 25.5 pg (27.0-31.0); Mean Corpuscular Volume 87.1 fL (78.0-98.0); Mean Platelet Volume 9.5 fL (7.4-10.4); Platelet Count 180 thou/uL (130-400); RBC Distribution Width 14.6 % (11.5-14.5); Red Blood Cell (RBC) Count 3.01 mill/uL (4.70-6.10); White Blood Cell (WBC) Count 5.8 thou/uL (4.8-10.8)
[2020-07-06 04:55] LABS: Anion Gap 12 mmol/L (10-20); BUN (Urea Nitrogen) 46 mg/dL (8.4-25.7); Calc. Creatinine Clearance 124 mL/min (70-130); Calcium 7.9 mg/dL (7.8-10.44); Carbon Dioxide 30 mmol/L (23-31); Chloride 110 mmol/L (98-107); Glucose 129 mg/dL (80-115); Potassium 4.6 mmol/L (3.5-5.1); Sodium 147 mmol/L (136-145)
[2020-07-06] MEDS: Dexamethasone 4 mg/ml Vial SLOW IVP SCH (05:54)
[2020-07-06] MEDS: Sodium Chloride 0.9% 1,000 ML IV SCH (05:54)
[2020-07-06] MEDS: Acetaminophen 325 MG TAB PO PRN ×4 (05:55→21:36)
[2020-07-06] MEDS: Mometasone 100 MCG/Formoterol 5 MCG 120 PUFF INHALER INH SCH ×2 (06:56→18:42)
[2020-07-06] MEDS: Enoxaparin Sodium 100 MG/ML SYRINGE SC SCH ×2 (07:48→20:49)
[2020-07-06] MEDS: Zinc Sulfate 220 MG CAP PO SCH (07:48)
[2020-07-06] MEDS: Ascorbic Acid 500 mg Chewable Tablet PO SCH (07:48)
[2020-07-06] MEDS: Colchicine 0.6 MG TAB PO SCH ×2 (07:48→20:49)
[2020-07-06] MEDS: Cholecalciferol 1,000 UNITS (25 MCG) TAB PO SCH (07:48)
[2020-07-06] MEDS: Polyethylene Glycol 3350 17 GM Packet PO SCH (07:49)
[2020-07-06] MEDS: Pantoprazole 40 MG VIAL IVP SCH (07:49)
--- NOTE | 2020-07-06 08:01 | RAD ---
EXAM: Single view of the chest HISTORY: Pneumonia COMPARISON: 07/05/2028 FINDINGS: Single view of the chest shows a normal sized cardiomediastinal silhouette. The lines and tubes are unchanged in position. Scattered multifocal infiltrates are seen. There is extensive subcutaneous air. No obvious pneumothorax is seen although evaluation is limited given the subcutaneo us air. No acute osseous abnormality. IMPRESSION: Stable exam
--- NOTE | 2020-07-06 09:57 | PRG ---
DATE OF SERVICE: 07/06/2020 35 minutes of critical care time. SUBJECTIVE: The patient remains intubated with COVID-19 pneumonia. This has been 10 minutes talking to the on the phone about the patient's prognosis. Today, the patient is requiring 85% oxygen through mechanical ventilation. He has a notable appearance of subcutaneous air under skin. OBJECTIVE: VITAL SIGNS: Temperature 100.2, pulse 114, blood pressure 107/60, O2 saturation 94%. HEENT: Otherwise unremarkable. NECK: No JVD. LUNGS: Coarse rhonchi. CARDIAC: S1, S2. Regular. ABDOMEN: Soft. EXTREMITIES: Subcutaneous air. LABORATORY DATA: White blood cell count 5.8, hematocrit 26.2, and platelet count 190. Sodium 147, potassium 4.6, chloride 110, CO2 of 30, BUN 46, creatinine 0.7, and glucose 129. ASSESSMENT: 1. COVID-19 pneumonia. 2. Acute respiratory failure, requiring mechanical ventilation. 3. New mediastinum. 4. Developing hypernatremia. PLAN: 1. I spoke with over the phone discussing patient's poor prognosis. 2. The patient is able to come out of isolation as he is day #20 since diagnosis. 3. Stop the normal saline. 4. Continue enteral tube feeds. 5. Add free water. Job ID: [id number]
[2020-07-06] MEDS: cefTRIAXone\\ROCEPHIN 1 GM in Sodium Chloride 0.9% 100 ML IVPB SCH (11:53)
[2020-07-06] MEDS: Propofol 1,000 MG/100 ML VIAL IV PRN (17:49)
--- NOTE | 2020-07-06 18:37 | PDOC.HOSPP ---
- Subjective Encounter Date: 07/06/20 Encounter Time: 18:40 Subjective: f/u for COVID PNA/resp failure/mech ventilation tx with Rocephin/Colchicine/Vit C/D3/Albuterol/Dexamethasone/Lovenox/Zinc. - Objective Vital Signs & Weight: Vital Signs (12 hours) Temp Pulse Resp BP Pulse Ox 07/06/20 18:00 24 H 07/06/20 17:00 100.3 F H 07/06/20 16:00 24 H 07/06/20 14:46 108 H 98/63 07/06/20 14:00 99.5 F 33 H 07/06/20 12:00 24 H 07/06/20 11:00 99.9 F H 07/06/20 10:33 113 H 106/66 07/06/20 10:00 24 H 07/06/20 08:00 100.2 F H 24 H 07/06/20 07:23 91 L 07/06/20 06:56 117 H 24 H 91 L 07/06/20 06:52 117 H 110/69 Weight Admit Weight 213 lb Weight 194 lb 0.108 oz Most Recent Monitor Data Heart Rate from ECG 117 NIBP 100/64 NIBP BP-Mean 76 Respiration from ECG 30 SpO2 88 I&O: 07/05/20 07/06/20 07/07/20 06:59 06:59 06:59 Intake Total 3006.7 3457.0 1453 Output Total 2040 1885 985 Balance 966.7 1572.0 468 Result Diagrams: 07/07/20 04:00 07/07/20 04:00 Additional Labs: Laboratory Tests 06/26/20 06/26/20 06/27/20 08:56 13:07 11:53 WBC 10.1 12.7 H Hgb 9.5 L 9.1 L D-Dimer 6.25 H Sodium BUN Ferritin C-Reactive Protein 06/28/20 06/28/20 06/28/20 08:55 08:55 08:55 WBC Hgb D-Dimer 14.84 H Sodium BUN Ferritin 1169.39 H C-Reactive Protein 15.85 H 06/29/20 06/30/20 06/30/20 04:05 14:53 14:53 WBC 14.1 H Hgb 9.0 L D-Dimer Sodium BUN Ferritin 1652.44 H C-Reactive Protein 16.13 H 06/30/20 07/01/20 07/02/20 14:53 04:53 08:58 WBC 15.2 H Hgb 8.3 L D-Dimer 7.11 H Sodium BUN Ferritin C-Reactive Protein 16.20 H 07/02/20 07/02/20 07/04/20 08:58 08:58 03:30 WBC Hgb D-Dimer 8.00 H Sodium BUN Ferritin 1777.86 H C-Reactive Protein 16.88 H 07/04/20 07/05/20 07/05/20 03:52 03:50 03:50 WBC Hgb 9.0 L D-Dimer Sodium 143 BUN 45 H Ferritin 1033.36 H C-Reactive Protein 07/06/20 04:20 WBC Hgb D-Dimer Sodium BUN Ferritin 768.33 H C-Reactive Protein Radiology Reviewed by me: Yes (PCXR - extensive subq air, multifocal infiltrates persist) EKG Reviewed by me: Yes (Tele - Sinus tachycardia in 100's) Hospitalist ROS - Medication Medications: Active Medications Generic Name Dose Route Start Last Admin Trade Name Freq PRN Reason Stop Dose Admin Acetaminophen 650 mg 06/24/20 00:15 07/06/20 17:09 Acetaminophen 325 Mg Tab PO 650 mg Q4H PRN Administration Headache/Fever/Mild Pain (1-3) Ascorbic Acid 1,000 mg 06/28/20 09:00 07/06/20 07:48 Ascorbic Acid 500 Mg Chewable Tablet PO 1,000 mg DAILY ABDULLAHI Administration Cholecalciferol 2,000 units 06/24/20 09:00 07/06/20 07:48 Cholecalciferol 1,000 Units (25 Mcg) Tab PO 2,000 units DAILY ABDULLAHI Administration Colchicine 0.6 mg 06/28/20 09:00 07/06/20 07:48 Colchicine 0.6 Mg Tab PO 0.6 mg BID ABDULLAHI Administration Dexamethasone 6 mg 06/24/20 06:00 07/06/20 05:54 Dexamethasone 4 Mg/Ml Vial SLOW IVP 6 mg 0600 ABDULLAHI Administration Enoxaparin Sodium 100 mg 06/27/20 21:00 07/06/20 07:48 Enoxaparin Sodium 100 Mg/Ml Syringe SC 100 mg BID ABDULLAHI Administration Ceftriaxone Sodium 1 gm/ 100 mls @ 200 mls/hr 06/26/20 13:00 07/06/20 11:53 Sodium Chloride IVPB 100 mls 1300 ABDULLAHI Administration Fentanyl 100 mls @ 0 mls/hr 07/02/20 03:00 07/06/20 00:20 Fentanyl Cadd IV 08/01/20 03:00 100 mls INF ABDULLAHI Administration Protocol Per Protocol Lorazepam 2 mg 07/02/20 03:00 07/06/20 16:15 Lorazepam 2 Mg/Ml Vial SLOW IVP 08/01/20 03:00 2 mg Q1H PRN Administration Breakthrough agitation Mometasone Furoate/Formoterol Fumar 1 puff 06/24/20 06:30 07/06/20 06:56 Mometasone 100 Mcg/Formoterol 5 Mcg 120 Puff Inhaler INH 1 puff BID-RT ABDULLAHI Administration Ondansetron HCl 4 mg 06/24/20 00:15 06/25/20 15:14 Ondansetron Pf 4 Mg/2 Ml Vial IVP 4 mg Q6H PRN Administration Nausea/Vomiting use 1st Pantoprazole Sodium 40 mg 07/03/20 09:00 07/06/20 07:49 Pantoprazole 40 Mg Vial IVP 40 mg DAILY ABDULLAHI Administration Polyethylene Glycol 17 gm 06/24/20 09:00 07/06/20 07:49 Polyethylene Glycol 3350 17 Gm Packet PO 17 gm DAILY ABDULLAHI Administration Propofol 1,000 mg 07/02/20 03:00 07/06/20 17:49 Propofol 1,000 Mg/100 Ml Vial IV 08/01/20 03:00 1,000 mg INF PRN Administration TO ACHIEVE GOAL RASS Protocol Vecuronium [place] 10 mg 07/02/20 09:25 07/06/20 18:28 Vecuronium 10 Mg Vial IVP 10 mg Q30MIN PRN Administration Agitation Zinc Sulfate 220 mg 06/24/20 09:00 07/06/20 07:48 Zinc Sulfate 220 Mg Cap PO 220 mg DAILY ABDULLAHI Administration Hospitalist Exam Vitals: Vital Signs (12 hours) Temp Pulse Resp BP Pulse Ox 07/06/20 18:00 24 H 07/06/20 17:00 100.3 F H 07/06/20 16:00 24 H 07/06/20 14:46 108 H 98/63 07/06/20 14:00 99.5 F 33 H 07/06/20 12:00 24 H 02/09/21 11:00 99.9 F H 07/06/20 10:33 113 H 106/66 07/06/20 10:00 24 H 07/06/20 08:00 100.2 F H 24 H 07/06/20 07:23 91 L 07/06/20 06:56 117 H 24 H 91 L 07/06/20 06:52 117 H 110/69 Weight Admit Weight 213 lb Weight 194 lb 0.108 oz Most Recent Monitor Data Heart Rate from ECG 117 NIBP 100/64 NIBP BP-Mean 76 Respiration from ECG 30 SpO2 88 General Appearance: ill appearing General - other findings: sedate on mech vent Eye: anicteric sclera ENT: normocephalic atraumatic, no oropharyngeal lesions ENT - other findings: ETT in place Neck: supple, symmetric, no JVD, no thyromegaly, no lymphadenopathy Neck - other findings: subq emphysema on neck/face Heart: no gallops, no rubs, normal peripheral pulses Heart - other findings: S1, S2 tachycardic Respiratory - other findings: diminished bilat, scattered coarse sounds Gastrointestinal: soft, non-distended, normal bowel sounds, no palpable masses Extremities - other findings: subq emphysema on bilat UE's Neurological - other findings: sedate on mech vent Psychiatric: somnolent, lethargic Hosp A/P (1) Acute respiratory failure due to COVID-19 Code(s): U07.1 - COVID-19; J96.00 - ACUTE RESPIRATORY FAILURE, UNSP W HYPOXIA OR HYPERCAPNIA Status: Acute Plan: Severe illness with high-O2 requirement and mech vent, continue critical pulm support (2) Pneumonia due to 2019 novel coronavirus Code(s): U07.1 - COVID-19; J12.82 - PNEUMONIA DUE TO CORONAVIRUS DISEASE 2019 Status: Acute Plan: Continue Rocephin/Dexamethasone/Colchicine/Vit C/D3/Zinc/Lovenox (3) Bilateral pneumothoraces Code(s): J93.9 - PNEUMOTHORAX, UNSPECIFIED Status: Acute Plan: Extensive subq air noted on CXR, supportive mgmt (4) Anemia, normocytic normochromic Code(s): D64.9 - ANEMIA, UNSPECIFIED Status: Chronic - Plan continue antibiotics, delinquency prevention social worker, respiratory therapy, DVT proph w/SCDs Consults: Palliative Care Continue critical support Continue Mech ventilation Continue Rocephin/Dexamethasone/Colchicine/Vit C/D3/Zinc/Lovenox Isolation protocol ? tracheostomy AM lab: BMP, CBC, CRP, Ferritin PCXR in am
[2020-07-07] MEDS: Vecuronium 10 MG VIAL IVP PRN ×6 (00:02→19:53)
[2020-07-07] MEDS: Lorazepam 2 MG/ML VIAL SLOW IVP PRN ×5 (00:05→17:54)
[2020-07-07] MEDS ORDERED: Fentanyl CADD 0 ML ONE (00:10)
[2020-07-07] MEDS ORDERED: Fentanyl CADD 100 ML ONE ×2 (00:12→14:06)
[2020-07-07] MEDS: Fentanyl CADD 100 ML IV SCH ×2 (00:14→14:10)
[2020-07-07 04:57] LABS: #Eosinphils 0.1 thou/uL (0.0-0.7); #Lymphocytes 1.3 thou/uL (1.20-3.40); #Monocytes 0.1 thou/uL (0.11-0.59); #Neutrophils 3.7 thou/uL (1.40-6.50); %Eosinophils 1.1 % (0.0-10.0); %Lymphocytes 25.6 % (21.0-51.0); %Monocytes 1.5 % (0.0-10.0); %Neutrophils 71.9 % (42.0-75.0); Hemoglobin 8.2 g/dL (14.0-18.0); Mean Corpuscular HGB CONC 29.8 g/dL (32.0-36.0); Mean Corpuscular Hemoglobin 26.5 pg (27.0-31.0); Mean Corpuscular Volume 89.1 fL (78.0-98.0); Platelet Count 163 thou/uL (130-400); RBC Distribution Width 15.2 % (11.5-14.5); Red Blood Cell (RBC) Count 3.08 mill/uL (4.70-6.10); White Blood Cell (WBC) Count 5.2 thou/uL (4.8-10.8)
[2020-07-07 05:03] LABS: Anion Gap 12 mmol/L (10-20); BUN (Urea Nitrogen) 55 mg/dL (8.4-25.7); Calc. Creatinine Clearance 109 mL/min (70-130); Calcium 7.9 mg/dL (7.8-10.44); Carbon Dioxide 33 mmol/L (23-31); Chloride 110 mmol/L (98-107); Glucose 125 mg/dL (80-115); Potassium 5.5 mmol/L (3.5-5.1); Sodium 149 mmol/L (136-145)
[2020-07-07] MEDS: Dexamethasone 4 mg/ml Vial SLOW IVP SCH (05:54)
[2020-07-07] MEDS: Mometasone 100 MCG/Formoterol 5 MCG 120 PUFF INHALER INH SCH ×2 (07:09→19:43)
[2020-07-07 07:21] LABS: Actual Bicarbonate (HCO3a) 34.6 mEq/L (22-28); Base Excess (BEa) 7.8 mEq/L (-2.0 to +3.0); CO2 Tension 63.7 mmHg (35.0-45.0); Carboxyhemoglobin (COHb) 1.2 gm% (0.0-3.0); Hemoglobin (Hb) 8.9 g/dL (14.0-18.0); O2 Tension (PaO2), arterial 56.5 mmHg (> 80.0); pH, Arterial 7.35 (7.35-7.45)
[2020-07-07 07:22] LABS: ALV-art Gradient 469.925 mmHg (0-20); Puncture Site LRA
[2020-07-07] MEDS: Polyethylene Glycol 3350 17 GM Packet PO SCH (08:28)
[2020-07-07] MEDS: Enoxaparin Sodium 100 MG/ML SYRINGE SC SCH (08:28)
[2020-07-07] MEDS: Pantoprazole 40 MG VIAL IVP SCH (08:28)
[2020-07-07] MEDS: Propofol 1,000 MG/100 ML VIAL IV PRN ×2 (08:28→19:53)
[2020-07-07] MEDS: Ascorbic Acid 500 mg Chewable Tablet PO SCH (08:29)
[2020-07-07] MEDS: Zinc Sulfate 220 MG CAP PO SCH (08:29)
[2020-07-07] MEDS: Cholecalciferol 1,000 UNITS (25 MCG) TAB PO SCH (08:29)
[2020-07-07] MEDS: Colchicine 0.6 MG TAB PO SCH ×2 (08:38→21:05)
--- NOTE | 2020-07-07 09:33 | RAD ---
PORTABLE CHEST: INDICATION: Pneumonia followup. CCU followup. COMPARISON: 07/06/2020. FINDINGS: Diffuse subcutaneous emphysema again noted. ET tube and NG tube unchanged. Bilateral hazy infiltrat es with bilateral effusions and bibasilar atelectasis again noted. IMPRESSION: No significant interval change. POS: OFF
--- NOTE | 2020-07-07 10:48 | PRG ---
DATE OF SERVICE: 07/07/2020 35 minutes of critical care time. SUBJECTIVE: The patient remains intubated, on mechanical ventilation. He is out of isolation. He is not doing very well. OBJECTIVE: VITAL SIGNS: His temperature 97.1, pulse 108, blood pressure 103/60, O2 saturation 95%. He is currently on 85% FiO2 and 13 of PEEP. HEENT: Unremarkable. NECK: No adenopathy or JVD. LUNGS: Distant breath sounds with crackles. CARDIAC: S1 and S2. Regular. ABDOMEN: Soft. EXTREMITIES: Edematous. DIAGNOSTIC DATA: His x-ray shows extensive subcutaneous air and bilateral infiltrates. LABORATORY DATA: White blood cell count 5.2, hematocrit 27.4, and platelet count 163. D-dimer is 8. PH 7.35, pCO2 of 63, pO2 of 56. Sodium 149, potassium 5.5, chloride 110, CO2 of 33, BUN 55, creatinine 0.8, glucose 125. C-reactive protein is 10.9. ASSESSMENT: 1. COVID-19 pneumonia. 2. Progressive renal failure. 3. Free water deficit. PLAN: 1. He is not stable enough in terms of PEEP and FiO2 to do a trach. Also, the subcutaneous air would get in the way of the procedure. 2. I will start him on D5W because of his persistent hypernatremia. I am very worried that he is going in the full-blown renal failure from his COVID. 3. Go ahead and decrease the enoxaparin to once daily, given his impaired renal function. 4. Start D5W because of hypernatremia. Job ID: [id number]
[2020-07-07] MEDS: Dextrose 5% in Water 1,000 ML IV SCH (12:28)
--- NOTE | 2020-07-07 16:52 | PDOC.HOSPP ---
- Subjective Encounter Date: 07/07/20 Encounter Time: 16:50 Subjective: f/u for COVID PNA/resp failure/mech ventilation/pneumomediastinum receiving Dexamethasone/Vit C/Zinc/Albuterol - Objective Vital Signs & Weight: Vital Signs (12 hours) Temp Pulse Resp BP Pulse Ox 07/07/20 14:17 108 H 102/66 07/07/20 12:00 97.6 F 07/07/20 10:33 108 H 106/64 07/07/20 08:00 97.1 F L 3 L 96 07/07/20 07:09 107 H 24 H 112/70 93 L 07/07/20 06:00 24 H Weight Admit Weight 213 lb Weight 208 lb 1.862 oz Most Recent Monitor Data Heart Rate from ECG 105 NIBP 105/69 NIBP BP-Mean 81 Respiration from ECG 28 SpO2 91 I&O: 07/06/20 07/07/20 07/08/20 06:59 06:59 06:59 Intake Total 3457.0 2215 750 Output Total 1885 1670 500 Balance 1572.0 545 250 Result Diagrams: 07/07/20 04:00 07/07/20 04:00 Additional Labs: Laboratory Tests 06/26/20 06/26/20 06/27/20 08:56 13:07 11:53 WBC 10.1 12.7 H Hgb 9.5 L 9.1 L D-Dimer 6.25 H Sodium BUN Ferritin C-Reactive Protein 06/28/20 06/28/20 06/28/20 08:55 08:55 08:55 WBC Hgb D-Dimer 14.84 H Sodium BUN Ferritin 1169.39 H C-Reactive Protein 15.85 H 06/29/20 06/30/20 06/30/20 04:05 14:53 14:53 WBC 14.1 H Hgb 9.0 L D-Dimer Sodium BUN Ferritin 1652.44 H C-Reactive Protein 16.13 H 06/30/20 07/01/20 07/02/20 14:53 04:53 08:58 WBC 15.2 H Hgb 8.3 L D-Dimer 7.11 H Sodium BUN Ferritin C-Reactive Protein 16.20 H 07/02/20 07/02/20 07/04/20 08:58 08:58 03:30 WBC Hgb D-Dimer 8.00 H Sodium BUN Ferritin 1777.86 H C-Reactive Protein 16.88 H 07/04/20 07/05/20 07/05/20 03:52 03:50 03:50 WBC Hgb 9.0 L D-Dimer Sodium 143 BUN 45 H Ferritin 1033.36 H C-Reactive Protein 07/06/20 07/07/20 04:20 04:00 WBC Hgb D-Dimer Sodium BUN Ferritin 768.33 H C-Reactive Protein 10.91 H Radiology Reviewed by me: Yes (PCXR - diffuse subq emphysema, lines/tubes in place, bilat infiltrates) EKG Reviewed by me: Yes (Tele - Sinus tachycardia) Hospitalist ROS - Medication Medications: Active Medications Generic Name Dose Route Start Last Admin Trade Name Freq PRN Reason Stop Dose Admin Acetaminophen 650 mg 06/24/20 00:15 07/06/20 21:36 Acetaminophen 325 Mg Tab PO 650 mg Q4H PRN Administration Headache/Fever/Mild Pain (1-3) Ascorbic Acid 1,000 mg 06/28/20 09:00 07/07/20 08:29 Ascorbic Acid 500 Mg Chewable Tablet PO 1,000 mg DAILY ABDULLAHI Administration Cholecalciferol 2,000 units 06/24/20 09:00 07/07/20 08:29 Cholecalciferol 1,000 Units (25 Mcg) Tab PO 2,000 units DAILY ABDULLAHI Administration Colchicine 0.6 mg 06/28/20 09:00 07/07/20 08:38 Colchicine 0.6 Mg Tab PO 0.6 mg BID ABDULLAHI Administration Dexamethasone 6 mg 06/24/20 06:00 07/07/20 05:54 Dexamethasone 4 Mg/Ml Vial SLOW IVP 6 mg 0600 ABDULLAHI Administration Fentanyl 100 mls @ 0 mls/hr 07/02/20 03:00 07/07/20 14:10 Fentanyl Cadd IV 08/01/20 03:00 100 mls INF ABDULLAHI Administration Protocol Per Protocol Dextrose/Water 1,000 mls @ 75 mls/hr 07/07/20 10:30 07/07/20 12:28 D5w IV 1,000 mls .[id number] ABDULLAHI Administration Lorazepam 2 mg 07/02/20 03:00 07/07/20 13:54 Lorazepam 2 Mg/Ml Vial SLOW IVP 08/01/20 03:00 2 mg Q1H PRN Administration Breakthrough agitation Mometasone Furoate/Formoterol Fumar 1 puff 06/24/20 06:30 07/07/20 07:09 Mometasone 100 Mcg/Formoterol 5 Mcg 120 Puff Inhaler INH 1 puff BID-RT ABDULLAHI Administration Ondansetron HCl 4 mg 06/24/20 00:15 06/25/20 15:14 Ondansetron Pf 4 Mg/2 Ml Vial IVP 4 mg Q6H PRN Administration Nausea/Vomiting use 1st Pantoprazole Sodium 40 mg 07/03/20 09:00 07/07/20 08:28 Pantoprazole 40 Mg Vial IVP 40 mg DAILY ABDULLAHI Administration Polyethylene Glycol 17 gm 06/24/20 09:00 07/07/20 08:28 Polyethylene Glycol 3350 17 Gm Packet PO 17 gm DAILY ABDULLAHI Administration Propofol 1,000 mg 07/02/20 03:00 07/07/20 08:28 Propofol 1,000 Mg/100 Ml Vial IV 08/01/20 03:00 1,000 mg INF PRN Administration TO ACHIEVE GOAL RASS Protocol Vecuronium [place] 10 mg 07/02/20 09:25 07/07/20 13:54 Vecuronium 10 Mg Vial IVP 10 mg Q30MIN PRN Administration Agitation Zinc Sulfate 220 mg 06/24/20 09:00 07/07/20 08:29 Zinc Sulfate 220 Mg Cap PO 220 mg DAILY ABDULLAHI Administration Hospitalist Exam Vitals: Vital Signs (12 hours) Temp Pulse Resp BP Pulse Ox 07/07/20 14:17 108 H 102/66 07/07/20 12:00 97.6 F 07/07/20 10:33 108 H 106/64 07/07/20 08:00 97.1 F L 3 L 96 07/07/20 07:09 107 H 24 H 112/70 93 L 07/07/20 06:00 24 H Weight Admit Weight 213 lb Weight 208 lb 1.862 oz Most Recent Monitor Data Heart Rate from ECG 105 NIBP 105/69 NIBP BP-Mean 81 Respiration from ECG 28 SpO2 91 General Appearance: ill appearing General - other findings: sedate on mech vent Eye: anicteric sclera ENT: normocephalic atraumatic, no oropharyngeal lesions ENT - other findings: ETT in place Neck: supple, symmetric, no JVD, no thyromegaly, no lymphadenopathy Heart: no gallops, no rubs, normal peripheral pulses Heart - other findings: S1, S2 tachycardic Respiratory - other findings: diminished with coarse sounds bilat Gastrointestinal: soft, non-distended, normal bowel sounds, no palpable masses Extremities: no cyanosis Extremities - other findings: diffuse subq emphysema of bilat UE's/hands Skin: normal turgor Skin - other findings: subq emphysema of neck/face/chest Neurological - other findings: sedate on mech vent Psychiatric: somnolent, lethargic Hosp A/P (1) Acute respiratory failure due to COVID-19 Code(s): U07.1 - COVID-19; J96.00 - ACUTE RESPIRATORY FAILURE, UNSP W HYPOXIA OR HYPERCAPNIA Status: Acute Plan: Continue Dexamethasone/Vit C/Zinc/Albuterol/Lovenox/mech vent (2) Pneumonia due to 2019 novel coronavirus Code(s): U07.1 - COVID-19; J12.82 - PNEUMONIA DUE TO CORONAVIRUS DISEASE 2019 Status: Acute (3) Bilateral pneumothoraces Code(s): J93.9 - PNEUMOTHORAX, UNSPECIFIED Status: Acute (4) Hypernatremia Code(s): E87.0 - HYPEROSMOLALITY AND HYPERNATREMIA Status: Acute Plan: D5W @ 75ml/h, serial Na+ monitoring (5) Hyperkalemia Code(s): E87.5 - HYPERKALEMIA Status: Acute Plan: Mild elevation, continue IVF's with free-h2O and monitor response (6) Anemia, normocytic normochromic Code(s): D64.9 - ANEMIA, UNSPECIFIED Status: Chronic - Plan plan discussed w/ family, rn social work, respiratory therapy, DVT proph w/lovenox, DVT proph w/SCDs Consults: Palliative Care Continue critical support Continue Mech ventilation Continue Rocephin/Dexamethasone/Colchicine/Vit C/D3/Zinc/Lovenox Isolation protocol ? tracheostomy AM lab: BMP, CBC, CRP, Ferritin PCXR in am
[2020-07-07] MEDS: Acetaminophen 325 MG TAB PO PRN (19:34)
[2020-07-08] MEDS: Dextrose 5% in Water 1,000 ML IV SCH ×3 (01:36→21:55)
[2020-07-08] MEDS ORDERED: Fentanyl CADD 100 ML ONE ×2 (03:00→16:29)
[2020-07-08] MEDS: Vecuronium 10 MG VIAL IVP PRN ×6 (03:14→20:55)
[2020-07-08 04:31] LABS: #Eosinphils 0.1 thou/uL (0.0-0.7); #Lymphocytes 1.3 thou/uL (1.20-3.40); #Monocytes 0.1 thou/uL (0.11-0.59); #Neutrophils 3.7 thou/uL (1.40-6.50); %Basophils 0.2 % (0.0-1.0); %Eosinophils 1.2 % (0.0-10.0); %Lymphocytes 25.2 % (21.0-51.0); %Monocytes 2.1 % (0.0-10.0); %Neutrophils 71.4 % (42.0-75.0); Hemoglobin 8.1 g/dL (14.0-18.0); Mean Corpuscular HGB CONC 29.3 g/dL (32.0-36.0); Mean Corpuscular Hemoglobin 25.6 pg (27.0-31.0); Mean Corpuscular Volume 87.4 fL (78.0-98.0); Mean Platelet Volume 10.5 fL (7.4-10.4); Platelet Count 152 thou/uL (130-400); RBC Distribution Width 15.3 % (11.5-14.5); Red Blood Cell (RBC) Count 3.18 mill/uL (4.70-6.10); White Blood Cell (WBC) Count 5.2 thou/uL (4.8-10.8)
[2020-07-08 04:47] LABS: Anion Gap 12 mmol/L (10-20); BUN (Urea Nitrogen) 67 mg/dL (8.4-25.7); Calc. Creatinine Clearance 91 mL/min (70-130); Carbon Dioxide 30 mmol/L (23-31); Chloride 104 mmol/L (98-107); Glucose 264 mg/dL (80-115); Potassium 4.8 mmol/L (3.5-5.1); Sodium 141 mmol/L (136-145)
[2020-07-08] MEDS: Dexamethasone 4 mg/ml Vial SLOW IVP SCH (05:35)
[2020-07-08] MEDS: Mometasone 100 MCG/Formoterol 5 MCG 120 PUFF INHALER INH SCH ×2 (06:52→18:46)
[2020-07-08 07:05] LABS: Base Excess (BEa) 3.9 mEq/L (-2.0 to +3.0); Calcium, Ionized (arterial) 1.18 mmol/L (1.12-1.30); Carboxyhemoglobin (COHb) 0.7 gm% (0.0-3.0); Hemoglobin (Hb) 10.5 g/dL (14.0-18.0); O2 Tension (PaO2), arterial 60.1 mmHg (> 80.0); Potassium - ABG Lab 4.99 mmol/L (3.70-5.30); pH, Arterial 7.33 (7.35-7.45)
[2020-07-08 07:06] LABS: CO2 Tension 60.3 mmHg (35.0-45.0)
[2020-07-08 07:07] LABS: ALV-art Gradient 470.575 mmHg (0-20); Puncture Site LRA
--- NOTE | 2020-07-08 08:56 | RAD ---
PORTABLE CHEST: HISTORY: Pneumonia followup. COMPARISON: 07/07/2020. ET tube and NG tube unchanged. Diffuse subcutaneous emphysema over the entire chest again noted. Pr obable small right apical pneumothorax. No significant pneumothorax is seen on the left. Hazy diffu se bilateral lung infiltrates with bilateral effusions. Left basilar atelectasis or infiltrative obs curing the left hemidiaphragm. IMPRESSION: No significant interval change. POS: AGW
[2020-07-08] MEDS: Propofol 1,000 MG/100 ML VIAL IV PRN ×2 (09:03→19:39)
[2020-07-08] MEDS: Ascorbic Acid 500 mg Chewable Tablet PO SCH (09:04)
[2020-07-08] MEDS: Polyethylene Glycol 3350 17 GM Packet PO SCH (09:04)
[2020-07-08] MEDS: Pantoprazole 40 MG VIAL IVP SCH (09:04)
[2020-07-08] MEDS: Colchicine 0.6 MG TAB PO SCH ×2 (09:04→20:55)
[2020-07-08] MEDS: Enoxaparin Sodium 100 MG/ML SYRINGE SC SCH (09:04)
[2020-07-08] MEDS: Zinc Sulfate 220 MG CAP PO SCH (09:04)
[2020-07-08] MEDS: Cholecalciferol 1,000 UNITS (25 MCG) TAB PO SCH (09:05)
[2020-07-08] MEDS: Acetaminophen 325 MG TAB PO PRN (09:15)
[2020-07-08] MEDS ORDERED: VANCOMYCIN IVPB PRN (10:24)
[2020-07-08] MEDS ORDERED: Dexamethasone 4 mg/ml Vial SLOW IVP SCH (10:30)
--- NOTE | 2020-07-08 10:32 | PRG ---
DATE OF SERVICE: 07/08/2020 SUBJECTIVE: Mr. Walls remains on mechanical ventilation for COVID-19 pneumonia. He is out of isolation. His pneumomediastinum continues to cause profound subcutaneous air. OBJECTIVE: VITAL SIGNS: His temperature is 99.7, it is high as 102.5 last night; pulse generally in the 90s to 100, blood pressure 106/70; O2 saturation is in the low 90s; and he is on 85% FiO2 with 13 of PEEP, assist-control ventilation rate 24, tidal volume of 500. GENERAL: He does not look much different than yesterday. HEENT: Notable for profound subcutaneous emphysema from his neck up towards its chin. LUNGS: Rhonchi bilaterally. CARDIOVASCULAR: S1, S2. Regular. ABDOMEN: Soft. EXTREMITIES: Muscle wasting evident. LABORATORY DATA: White blood cell count 5.2, hematocrit 27.8, and platelet count 152. The pH 7.33, pCO2 of 60, PO2 of 60, on the above ventilator parameters. Sodium 141, potassium 4.8, chloride 104, CO2 of 30, BUN 67, creatinine 1.1, glucose 264. ASSESSMENT: 1. COVID-19 pneumonia. 2. Acute hypoxic respiratory failure, requiring mechanical ventilation. 3. Worsening BUN. 4. Improved hypernatremia. PLAN: His PEEP and FiO2 have to improve somewhat before to be safe enough for him to undergo tracheostomy. His enoxaparin was decreased yesterday because of his worsening renal function. Part of his renal issues may be due to the steroids and at this point, I think it would be safe to go and lower the steroid dose and see how he does. I will speak with his over the phone. Job ID: [id number]
[2020-07-08] MEDS: Lorazepam 2 MG/ML VIAL SLOW IVP PRN ×4 (11:04→18:16)
--- NOTE | 2020-07-08 11:31 | PDOC.HOSPP ---
- Subjective Encounter Date: 07/08/20 Encounter Time: 11:30 Subjective: f/u for COVID PNA/resp failure on mech ventilation with significant subq emphysema. Remains sedate on vent and unresponsive. - Objective Vital Signs & Weight: Vital Signs (12 hours) Temp Pulse Resp BP Pulse Ox 07/08/20 10:45 104 H 101/62 07/08/20 07:49 96 07/08/20 06:52 98 25 H 104/64 97 07/08/20 06:00 26 H 07/08/20 04:00 99.7 F H 07/08/20 03:46 24 H 07/08/20 02:24 104 H 07/08/20 02:00 29 H 07/08/20 00:00 100.5 F H 07/07/20 23:53 26 H Weight Admit Weight 213 lb Weight 207 lb 0.225 oz Most Recent Monitor Data Heart Rate from ECG 101 NIBP 106/70 NIBP BP-Mean 82 Respiration from ECG 25 SpO2 94 I&O: 07/07/20 07/08/20 07/09/20 06:59 06:59 06:59 Intake Total 2215 4493.6 250 Output Total 1670 875 Balance 545 3618.6 250 Result Diagrams: 07/08/20 04:00 07/08/20 04:00 Additional Labs: Laboratory Tests 06/26/20 06/26/20 06/27/20 08:56 13:07 11:53 WBC 10.1 12.7 H Hgb 9.5 L 9.1 L D-Dimer 6.25 H Sodium BUN Ferritin C-Reactive Protein 06/28/20 06/28/20 06/28/20 08:55 08:55 08:55 WBC Hgb D-Dimer 14.84 H Sodium BUN Ferritin 1169.39 H C-Reactive Protein 15.85 H 06/29/20 06/30/20 06/30/20 04:05 14:53 14:53 WBC 14.1 H Hgb 9.0 L D-Dimer Sodium BUN Ferritin 1652.44 H C-Reactive Protein 16.13 H 06/30/20 07/01/20 07/02/20 14:53 04:53 08:58 WBC 15.2 H Hgb 8.3 L D-Dimer 7.11 H Sodium BUN Ferritin C-Reactive Protein 16.20 H 07/02/20 07/02/20 07/04/20 08:58 08:58 03:30 WBC Hgb D-Dimer 8.00 H Sodium BUN Ferritin 1777.86 H C-Reactive Protein 16.88 H 07/04/20 07/05/20 07/05/20 03:52 03:50 03:50 WBC Hgb 9.0 L D-Dimer Sodium 143 BUN 45 H Ferritin 1033.36 H C-Reactive Protein 07/06/20 07/07/20 04:20 04:00 WBC Hgb D-Dimer Sodium BUN Ferritin 768.33 H C-Reactive Protein 10.91 H Radiology Reviewed by me: Yes (PCXR - diffuse subq emphysema, small apical ptx, lines/tubes in place) EKG Reviewed by me: Yes (Tele - sinus tach) Hospitalist ROS - Medication Medications: Active Medications Generic Name Dose Route Start Last Admin Trade Name Freq PRN Reason Stop Dose Admin Acetaminophen 650 mg 06/24/20 00:15 07/08/20 09:15 Acetaminophen 325 Mg Tab PO 650 mg Q4H PRN Administration Headache/Fever/Mild Pain (1-3) Ascorbic Acid 1,000 mg 06/28/20 09:00 07/08/20 09:04 Ascorbic Acid 500 Mg Chewable Tablet PO 1,000 mg DAILY ABDULLAHI Administration Cholecalciferol 2,000 units 06/24/20 09:00 07/08/20 09:05 Cholecalciferol 1,000 Units (25 Mcg) Tab PO 2,000 units DAILY ABDULLAHI Administration Colchicine 0.6 mg 06/28/20 09:00 07/08/20 09:04 Colchicine 0.6 Mg Tab PO 0.6 mg BID ABDULLAHI Administration Enoxaparin Sodium 100 mg 07/08/20 09:00 07/08/20 09:04 Enoxaparin Sodium 100 Mg/Ml Syringe SC 100 mg 0900 ABDULLAHI Administration Fentanyl 100 mls @ 0 mls/hr 07/02/20 03:00 07/07/20 14:10 Fentanyl Cadd IV 08/01/20 03:00 100 mls INF ABDULLAHI Administration Protocol Per Protocol Dextrose/Water 1,000 mls @ 75 mls/hr 07/07/20 10:30 07/08/20 01:36 D5w IV 1,000 mls .[id number] ABDULLAHI Administration Lorazepam 2 mg 07/02/20 03:00 07/07/20 17:54 Lorazepam 2 Mg/Ml Vial SLOW IVP 08/01/20 03:00 2 mg Q1H PRN Administration Breakthrough agitation Mometasone Furoate/Formoterol Fumar 1 puff 06/24/20 06:30 07/08/20 06:52 Mometasone 100 Mcg/Formoterol 5 Mcg 120 Puff Inhaler INH 1 puff BID-RT ABDULLAHI Administration Ondansetron HCl 4 mg 06/24/20 00:15 06/25/20 15:14 Ondansetron Pf 4 Mg/2 Ml Vial IVP 4 mg Q6H PRN Administration Nausea/Vomiting use 1st Pantoprazole Sodium 40 mg 07/03/20 09:00 07/08/20 09:04 Pantoprazole 40 Mg Vial IVP 40 mg DAILY ABDULLAHI Administration Polyethylene Glycol 17 gm 06/24/20 09:00 07/08/20 09:04 Polyethylene Glycol 3350 17 Gm Packet PO 17 gm DAILY ABDULLAHI Administration Propofol 1,000 mg 07/02/20 03:00 07/08/20 09:03 Propofol 1,000 Mg/100 Ml Vial IV 08/01/20 03:00 1,000 mg INF PRN Administration TO ACHIEVE GOAL RASS Protocol Vecuronium [place] 10 mg 07/02/20 09:25 07/08/20 03:14 Vecuronium 10 Mg Vial IVP 10 mg Q30MIN PRN Administration Agitation Zinc Sulfate 220 mg 06/24/20 09:00 07/08/20 09:04 Zinc Sulfate 220 Mg Cap PO 220 mg DAILY ABDULLAHI Administration Hospitalist Exam Vitals: Vital Signs (12 hours) Temp Pulse Resp BP Pulse Ox 07/08/20 10:45 104 H 101/62 07/08/20 07:49 96 07/08/20 06:52 98 25 H 104/64 97 07/08/20 06:00 26 H 07/08/20 04:00 99.7 F H 07/08/20 03:46 24 H 07/08/20 02:24 104 H 07/08/20 02:00 29 H 07/08/20 00:00 100.5 F H 07/07/20 23:53 26 H Weight Admit Weight 213 lb Weight 207 lb 0.225 oz Most Recent Monitor Data Heart Rate from ECG 101 NIBP 106/70 NIBP BP-Mean 82 Respiration from ECG 25 SpO2 94 General - other findings: unresponsive on mech vent Eye: anicteric sclera Eye - other findings: periorbital subq emphysema ENT: normocephalic atraumatic, no oropharyngeal lesions ENT - other findings: ETT in place Neck: supple, symmetric, no JVD, no thyromegaly, no lymphadenopathy Neck - other findings: subq emphysema Heart: no murmur, no rubs, normal peripheral pulses Heart - other findings: S1, S2 tachycardic Respiratory - other findings: diminished bilat, scattered coarse sounds Gastrointestinal: soft, non-distended, normal bowel sounds, no palpable masses Extremities: no cyanosis, 2+ LE edema Extremities - other findings: Bilat UE subq emphysema Neurological - other findings: unresponsive on mech vent Psychiatric: somnolent, lethargic Hosp A/P (1) Acute respiratory failure due to COVID-19 Code(s): U07.1 - COVID-19; J96.00 - ACUTE RESPIRATORY FAILURE, UNSP W HYPOXIA OR HYPERCAPNIA Status: Acute Plan: Continue mech ventilation, not weanable, likely will need trach (2) Pneumonia due to 2019 novel coronavirus Code(s): U07.1 - COVID-19; J12.82 - PNEUMONIA DUE TO CORONAVIRUS DISEASE 2019 Status: Acute Plan: Continue Dexamethasone/Cefepime/Vit C/Zinc/Lovenox (3) Bilateral pneumothoraces Code(s): J93.9 - PNEUMOTHORAX, UNSPECIFIED Status: Acute Plan: Small L apical ptx, mainly pneumomediastinum, no intervention, monitor clinically (4) Hypernatremia Code(s): E87.0 - HYPEROSMOLALITY AND HYPERNATREMIA Status: Acute Plan: Resolved with D5 IVF's (5) Hyperkalemia Code(s): E87.5 - HYPERKALEMIA Status: Acute (6) Anemia, normocytic normochromic Code(s): D64.9 - ANEMIA, UNSPECIFIED Status: Chronic - Plan duffy catheter, continue antibiotics, pediatric social worker, respiratory therapy, DVT proph w/lovenox, DVT proph w/SCDs Continue critical support Continue Mech ventilation Continue Rocephin/Dexamethasone/Colchicine/Vit C/D3/Zinc/Lovenox Isolation protocol ? tracheostomy when less subq emphysema Continue IVF's Nutritional support with TF's AM lab: BMP, CBC, CRP, Ferritin PCXR in am
[2020-07-08] MEDS ORDERED: VANCOMYCIN 1.75 GM/350 ML BAG 1.75 GM in Premix Bag 1 BAG IVPB SCH (12:00)
[2020-07-08] MEDS: Cefepime 1 GM in Sodium Chloride 0.9% 100 ML IVPB SCH ×2 (12:02→23:10)
--- NOTE | 2020-07-08 16:14 | PDOC.PALCO ---
Palliative Care Consult - Allergies Allergies/Adverse Reactions: Allergies Allergy/AdvReac Type Severity Reaction Status Date / Time hydrocodone [From Vicodin] Allergy Verified 06/24/20 00:46 - Objective Vital Signs: Vital Signs - Most Recent Temp Pulse Resp BP Pulse Ox 99.9 F H 107 H 25 H 93/61 96 07/08/20 12:00 07/08/20 14:16 07/08/20 06:52 07/08/20 14:16 07/08/20 07:49 - Plan/Recommendations Plan: Palliative care was introduced by PC RN initially. Attempted to visit with patient family after assessment. Unsuccessful. Will attempt to connect 07/09 and secure a family meeting to discuss prognosis and through a short life review identify realistic outcomes that the patient would desire. Please also see Palliative Care notes in note section. [] minutes spent on this encounter with >50% of the time in counseling and coordination of care. Thank you for this very appropriate consult.
[2020-07-08] MEDS: Fentanyl CADD 100 ML IV SCH (16:32)
[2020-07-09] MEDS: Norepinephrine 8 MG/0.9% NS 250 ML IVPB SCH ×2 (00:53→19:19)
[2020-07-09] MEDS: Acetaminophen 325 MG TAB PO PRN ×3 (04:16→19:33)
[2020-07-09] MEDS ORDERED: Fentanyl CADD 100 ML ONE ×2 (05:36→22:25)
[2020-07-09] MEDS ORDERED: Dexamethasone 4 mg/ml Vial SLOW IVP SCH (06:00)
[2020-07-09 06:23] LABS: Anion Gap 16 mmol/L (10-20); BUN (Urea Nitrogen) 79 mg/dL (8.4-25.7); CRP (Inflammatory) 7.48 mg/dL (= or < 0.5); Calc. Creatinine Clearance 80 mL/min (70-130); Carbon Dioxide 29 mmol/L (23-31); Chloride 103 mmol/L (98-107); Glucose 124 mg/dL (80-115); Potassium 5.5 mmol/L (3.5-5.1); Sodium 142 mmol/L (136-145)
[2020-07-09] MEDS: Mometasone 100 MCG/Formoterol 5 MCG 120 PUFF INHALER INH SCH ×2 (06:51→18:30)
[2020-07-09 07:07] LABS: Hemoglobin 8.8 g/dL (14.0-18.0); Mean Corpuscular HGB CONC 29.1 g/dL (32.0-36.0); Mean Corpuscular Hemoglobin 25.9 pg (27.0-31.0); Mean Corpuscular Volume 88.8 fL (78.0-98.0); Mean Platelet Volume 11.3 fL (7.4-10.4); Platelet Count 183 thou/uL (130-400); RBC Distribution Width 15.4 % (11.5-14.5); Red Blood Cell (RBC) Count 3.39 mill/uL (4.70-6.10); White Blood Cell (WBC) Count 12.1 thou/uL (4.8-10.8)
[2020-07-09 07:26] LABS: Band 21 % (5-11); Eosinophils 2 % (0-10); Lymphocytes 20 % (21-51); MDiff Complete? YES; Monocytes 2 % (0-10); Myelocyte 1 % (0-0); Neutrophil 54 % (42-75); Nucleated RBC 2 % (0); Ovalocytes MODERATE= 6-15 cells (100X) (0-1/hpf); Platelet Morphology Comment Appears Adequate; Polychromasia MODERATE = 3-4 cells (100X) (0-2/hpf); Tear Drops SLIGHT = 2-5 cells (100X) (0-1/hpf)
[2020-07-09] MEDS: Enoxaparin Sodium 100 MG/ML SYRINGE SC SCH (08:42)
[2020-07-09] MEDS: Ascorbic Acid 500 mg Chewable Tablet PO SCH (08:42)
[2020-07-09] MEDS: Polyethylene Glycol 3350 17 GM Packet PO SCH (08:42)
[2020-07-09] MEDS: Cholecalciferol 1,000 UNITS (25 MCG) TAB PO SCH (08:43)
[2020-07-09] MEDS: Zinc Sulfate 220 MG CAP PO SCH (08:43)
[2020-07-09] MEDS: Colchicine 0.6 MG TAB PO SCH (08:43)
[2020-07-09] MEDS: Vecuronium 10 MG VIAL IVP PRN ×5 (08:54→17:47)
[2020-07-09] MEDS: Lorazepam 2 MG/ML VIAL SLOW IVP PRN ×4 (08:54→17:47)
--- NOTE | 2020-07-09 08:54 | RAD ---
PORTABLE CHEST: Date: 07/09/2020 HISTORY: Pneumonia follow-up, in CCU. COMPARISON: 07/08/2020. FINDINGS: ET tube and NG tube unchanged. Diffuse subcutaneous emphysema over the chest again noted. Hazy bilate ral lung infiltrates again noted. Pneumomediastinum is stable. No definite pneumothorax. IMPRESSION: No acute interval change. POS: AGW
[2020-07-09 09:24] LABS: Actual Bicarbonate (HCO3a) 27.6 mEq/L (22-28); Base Excess (BEa) 0.4 mEq/L (-2.0 to +3.0); CO2 Tension 58.6 mmHg (35.0-45.0); Calcium, Ionized (arterial) 1.14 mmol/L (1.12-1.30); Carboxyhemoglobin (COHb) 0.9 gm% (0.0-3.0); Hemoglobin (Hb) 9.6 g/dL (14.0-18.0); Potassium - ABG Lab 5.25 mmol/L (3.70-5.30); pH, Arterial 7.29 (7.35-7.45)
[2020-07-09 09:25] LABS: O2 Tension (PaO2), arterial 54.9 mmHg (> 80.0)
[2020-07-09 09:26] LABS: Puncture Site LRA
[2020-07-09] MEDS: Pantoprazole 40 MG GRANULES PACKET PER TUBE SCH (10:06)
--- NOTE | 2020-07-09 10:25 | PRG ---
DATE OF SERVICE: 07/09/2020 35 minutes of critical care time. SUBJECTIVE: The patient remains intubated, on mechanical ventilation for COVID pneumonia. OBJECTIVE: VITAL SIGNS: He had worsening of his oxygenation status, was requiring now 100% FiO2, is currently on bilevel at rate 24, high PEEP 34, low PEEP 12, inspiratory time 0.9 seconds with FiO2 of 100%. His pulse is 115, blood pressure 95/63, O2 saturation 91% on the settings, temperature 99.7. He looks much worse in terms of subcutaneous emphysema over his chest, neck, arms extending up to his cheeks. His HEENT exam is otherwise unchanged. LUNGS: Difficult to hear breath sounds secondary to the crepitus. CARDIOVASCULAR: S1, S2. Slightly tachycardic. ABDOMEN: Soft. EXTREMITIES: Some edema present. LABORATORY DATA: Sodium 142, potassium 5.5, chloride 103, CO2 of 29, BUN 79, creatinine 1.3, glucose 124. C-reactive protein is 7.4. White blood cell count 12, hematocrit 30, and platelet count 183. PH 7.29, pCO2 of 58, pO2 of 54. His A-a gradient is 584. Chest x-ray shows bilateral infiltrates and subcutaneous air. ASSESSMENT: 1. This is severe COVID-19 pneumonia with acute hypoxic respiratory failure requiring mechanical ventilation. Despite aggressive care, we have seen tremendous deterioration in his pulmonary status. 2. Pneumomediastinum with subcutaneous emphysema. 3. Developing acute renal failure. PLAN: 1. I had a long discussion with his . There was some other person on the phone at the house also, who I assume was probably the patient's daughter. I answered their questions. Regarding his situation, I told them that he is very ill and likely to succumb . They do not want to even consider DNR and requested continued aggressive measures. 2. I have consulted Dr. Jason Soliman, for an opinion regarding the patient's deteriorating kidney status. I have adjusted the patient's antibiotics, stopped his vancomycin, and cut down his colchicine dose to daily. I think at some point though he will probably necessitate dialysis. I will give him one dose of Kayexalate today. Overall, this patient's prognosis is poor and I would not expect him to survive. Job ID: [id number]
[2020-07-09] MEDS ORDERED: Sodium Chloride 0.45% 1,000 ML IV SCH (11:45)
--- NOTE | 2020-07-09 12:17 | PRG ---
DATE OF SERVICE: 07/09/2020 SUBJECTIVE: Mr. Walls is a 65-year-old white male, who was initially admitted for COVID-19 pneumonia. He is initially presented for shortness of breath. The patient, based on the history, was having generalized malaise with progressive shortness of breath. He was then admitted to [facility], but subsequently was transferred at [place] for further management. His initial presentation was, he was dyspneic with low O2 saturation of 85% on room air. The initial x-ray also showed diffuse lymphadenopathy as well as the physical exam. He had also an incidental finding of an adrenal adenoma-22 mm. During the course of his hospitalization, his respiratory status has essentially worsen, where he had to be placed on intubation and ventilator support. We are now being consulted for slowly progressive azotemia. Creatinine has been inching up from 0.8 to most recent value of 1.25. No significant problems except for the recent diagnosis of, 1. COVID-19 pneumonia. 2. Acute respiratory failure. PAST SURGICAL HISTORY: Includes status post ankle knee surgery. FAMILY HISTORY: No family history of ESRD. SOCIAL HISTORY: The patient currently works in [employer] industry. He also has [employer] business on the side. He is a nonsmoker and no alcohol intake. No IV drug abuse. Active lifestyle. ALLERGIES: NONE. TRAUMA: None. IMMUNIZATIONS: Up to date. HOSPITALIZATIONS: Please see past medical history. REVIEW OF SYSTEMS: Not obtainable due to the patient being sedated and intubated. He does have a history of progressive shortness of breath. No fever. No headache. Positive for generalized malaise. CURRENT MEDICATIONS: The patient is currently on, 1. D5 water at 75 mL/hour. 2. Albuterol 2 puffs q.6 p.r.n. 3. Cefepime 1 g IV daily. 4. Colchicine 0.6 mg p.o. daily. 5. Dexamethasone 3 mg IV daily. 6. Lovenox 100 mg subcu daily. 7. Labetalol 20 mg IV q.4 p.r.n. 8. Morphine 2 mg IV q.1 hour as needed. 9. Zofran p.r.n. 10. Protonix 40 mg tablet once a day. 11. Propofol drip. 12. Zinc sulfate 220 mg p.o. daily. PHYSICAL EXAMINATION: VITAL SIGNS: Blood pressure is 88/60, heart rate 117, respiratory rate 21, O2 saturation 91%. GENERAL: The patient is sedated, intubated on ventilator support. SKIN: Adequate turgor. HEENT: He has slightly pale conjunctivae. Anicteric sclerae. NECK: No neck mass. No carotid bruits. No JVD. CHEST: No deformities. LUNGS: Decreased breath sounds. HEART: Normal sinus rhythm. No murmur. No gallops. No rubs. ABDOMEN: Globular, soft, nontender. No masses. EXTREMITIES: No edema. No deformities. NEUROLOGICAL: The patient is sedated on ventilator support. LABORATORY DATA: On July 09, 2020, white count 12.1, hemoglobin 8.8. Sodium 142, potassium 5.5, chloride 103, carbon dioxide 29, BUN 79, creatinine 1.25, GFR 58 mL/minute. Glucose 124, calcium 8. C-reactive protein 7.48. Further review of serum creatinine shows the following; July 08, 2020, 1.1; July 07, 2020, 0.8; July 06, 2020, 0.78. Chest x-ray shows multifocal infiltrates. ASSESSMENT AND PLAN: 1. Acute kidney injury. Progressive worsening of the creatinine with a creatinine now at 1.25. We will start the patient on D5 half-normal saline at 75 mL/hour. Adjust IV fluid as needed depending on his response to it. I suspect he may have a hemodynamically-mediated renal dysfunction. We will also be reviewing urinalysis to make sure there is no superimposed acute tubular necrosis. There is no indication for any dialytic intervention. 2. Mild hypernatremia, much improved with D5 water. Due to the low BP and slightly worsening creatinine, we will be starting him on D5 half-normal saline at 75 mL/hour. 3. COVID-19 pneumonia. Continuing supportive care. Agree with current management. Job ID: [id number] [facility]
[2020-07-09] MEDS: Dextrose 5 %-0.45 % NaCl 1,000 ML IV SCH (12:18)
[2020-07-09 12:36] LABS: Bacteria/HPF None Seen HPF (None Seen); Bilirubin Negative (Negative); Blood, Urine Negative (Negative); Clarity Turbid (Clear); Glucose, Urine (Dipstick) Normal (Negative); Ketone, Urine Negative (Negative); Leukocyte Negative Leu/uL (Negative); Nitrite Negative (Negative); Protein, Urine (Dipstick) 50 mg/dL (Neg-Trace); Specific Gravity, Urine 1.023 (1.002-1.036); Squamous Epithelial 0-3 HPF (0-3); Urobilinogen Normal mg/dL (Less than 2); WBC/HPF 0-3 HPF (0-3)
--- NOTE | 2020-07-09 13:26 | PDOC.HOSPP ---
- Subjective Encounter Date: 07/09/20 Encounter Time: 13:24 Subjective: Mr. Walls was seen today in follow-up of respiratory failure due to COVID pneumonia. He is intubated, and has minimal sedation. He has not been responsive. His is at the bedside. - Objective Vital Signs & Weight: Vital Signs (12 hours) Temp Pulse Resp BP Pulse Ox 07/09/20 12:00 96.8 F L 07/09/20 10:25 116 H 95/63 07/09/20 08:00 97.6 F 07/09/20 07:54 87 L 07/09/20 06:51 112 H 27 H 88 L 07/09/20 06:49 111 H 98/66 07/09/20 06:00 99.7 F H 27 H 07/09/20 04:46 99.7 F H 108 H 27 H 91/58 L 07/09/20 04:16 100.3 F H 115 H 25 H 90/64 07/09/20 04:00 100.3 F H 07/09/20 03:35 26 H 07/09/20 02:39 117 H 07/09/20 02:00 26 H Weight Admit Weight 213 lb Weight 207 lb 10.807 oz Most Recent Monitor Data Heart Rate from ECG 123 NIBP 93/53 NIBP BP-Mean 66 Respiration from ECG 0 SpO2 90 I&O: 07/08/20 07/09/20 07/10/20 06:59 06:59 06:59 Intake Total 4493.6 4799.7 1250 Output Total 875 1545 235 Balance 3618.6 3254.7 1015 Result Diagrams: 07/09/20 04:00 07/09/20 04:00 Hospitalist ROS - Medication Medications: Active Medications Generic Name Dose Route Start Last Admin Trade Name Freq PRN Reason Stop Dose Admin Acetaminophen 650 mg 06/24/20 00:15 07/09/20 12:34 Acetaminophen 325 Mg Tab PO 650 mg Q4H PRN Administration Headache/Fever/Mild Pain (1-3) Ascorbic Acid 1,000 mg 06/28/20 09:00 07/09/20 08:42 Ascorbic Acid 500 Mg Chewable Tablet PO 1,000 mg DAILY ABDULLAHI Administration Cholecalciferol 2,000 units 06/24/20 09:00 07/09/20 08:43 Cholecalciferol 1,000 Units (25 Mcg) Tab PO 2,000 units DAILY ABDULLAHI Administration Dexamethasone 3 mg 07/09/20 06:00 07/09/20 05:18 Dexamethasone 4 Mg/Ml Vial SLOW IVP 3 mg 0600 ABDULLAHI Administration Enoxaparin Sodium 100 mg 07/08/20 09:00 07/09/20 08:42 Enoxaparin Sodium 100 Mg/Ml Syringe SC 100 mg 0900 ABDULLAHI Administration Fentanyl 100 mls @ 0 mls/hr 07/02/20 03:00 07/08/20 16:32 Fentanyl Cadd IV 08/01/20 03:00 100 mls INF ABDULLAHI Administration Protocol Per Protocol Norepinephrine Bitartrate 250 mls @ 0 mls/hr 07/02/20 09:30 07/09/20 00:53 Levophed IVPB 250 mls INF ABDULLAHI Administration Protocol Titrate Dextrose/Sodium Chloride 1,000 mls @ 75 mls/hr 07/09/20 11:45 07/09/20 12:18 D5 1/2 Ns IV 1,000 mls .[id number] ABDULLAHI Administration Lorazepam 2 mg 07/02/20 03:00 07/09/20 12:09 Lorazepam 2 Mg/Ml Vial SLOW IVP 08/01/20 03:00 2 mg Q1H PRN Administration Breakthrough agitation Mometasone Furoate/Formoterol Fumar 1 puff 06/24/20 06:30 07/09/20 06:51 Mometasone 100 Mcg/Formoterol 5 Mcg 120 Puff Inhaler INH 1 puff BID-RT ABDULLAHI Administration Ondansetron HCl 4 mg 06/24/20 00:15 06/25/20 15:14 Ondansetron Pf 4 Mg/2 Ml Vial IVP 4 mg Q6H PRN Administration Nausea/Vomiting use 1st Pantoprazole Sodium 40 mg 07/09/20 09:00 07/09/20 10:06 Pantoprazole 40 Mg Granules Packet PER TUBE 40 mg DAILY ABDULLAHI Administration Polyethylene Glycol 17 gm 06/24/20 09:00 07/09/20 08:42 Polyethylene Glycol 3350 17 Gm Packet PO 17 gm DAILY ABDULLAHI Administration Propofol 1,000 mg 07/02/20 03:00 07/08/20 19:39 Propofol 1,000 Mg/100 Ml Vial IV 08/01/20 03:00 1,000 mg INF PRN Administration TO ACHIEVE GOAL RASS Protocol Vecuronium [place] 10 mg 07/02/20 09:25 07/09/20 12:09 Vecuronium 10 Mg Vial IVP 10 mg Q30MIN PRN Administration Agitation Zinc Sulfate 220 mg 06/24/20 09:00 07/09/20 08:43 Zinc Sulfate 220 Mg Cap PO 220 mg DAILY ABDULLAHI Administration Hospitalist Exam Vitals: Vital Signs (12 hours) Temp Pulse Resp BP Pulse Ox 07/09/20 12:00 96.8 F L 07/09/20 10:25 116 H 95/63 07/09/20 08:00 97.6 F 07/09/20 07:54 87 L 07/09/20 06:51 112 H 27 H 88 L 07/09/20 06:49 111 H 98/66 07/09/20 06:00 99.7 F H 27 H 07/09/20 04:46 99.7 F H 108 H 27 H 91/58 L 07/09/20 04:16 100.3 F H 115 H 25 H 90/64 07/09/20 04:00 100.3 F H 07/09/20 03:35 26 H 07/09/20 02:39 117 H 07/09/20 02:00 26 H Weight Admit Weight 213 lb Weight 207 lb 10.807 oz Most Recent Monitor Data Heart Rate from ECG 123 NIBP 93/53 NIBP BP-Mean 66 Respiration from ECG 0 SpO2 90 General Appearance: NAD Eye: PERRL, anicteric sclera ENT - other findings: + subcutaneous emphysema Heart: RRR, no murmur, no gallops, no rubs, normal peripheral pulses Respiratory: rales (at the bases) Gastrointestinal: soft, non-tender, non-distended, normal bowel sounds, no palpable masses, no hepatomegaly Extremities: no cyanosis (+ d.p. pulses are palpable, no lesions), 1+ LE edema Hosp A/P (1) Acute respiratory failure due to COVID-19 Code(s): U07.1 - COVID-19; J96.00 - ACUTE RESPIRATORY FAILURE, UNSP W HYPOXIA OR HYPERCAPNIA Status: Acute (2) Bilateral pneumothoraces Code(s): J93.9 - PNEUMOTHORAX, UNSPECIFIED Status: Acute (3) Anemia, normocytic normochromic Code(s): D64.9 - ANEMIA, UNSPECIFIED Status: Chronic - Plan * Acute respiratory failure due to COVID pneumonia- he continues to require ventilatory support. He is requiring maximal support to facilitate oxygenation * Continue Colchicine, and empiric antibiotics * He continues to require pressor support for his blood pressure * Continue enhanced DVT prophylaxis * Prognosis is guarded * Discussed his medical condition with his , who is at bedside
[2020-07-09] MEDS ORDERED: Phenylephrine 40 MG in Sodium Chloride 0.9% 250 ML 250 ML IVPB PRN (20:06)
--- NOTE | 2020-07-09 22:37 | PDOC.EVN ---
Event Note - Event Note Event Note: INDICATION:hemodynamic instability PROCEDURE INDUSTRIAL ORDER CLERK: Jarett Duffy DO ATTENDING PHYSICIAN: Hu Nina MD In Attendance (Y) Ultrasound Used: Y CONSENT: Consent was obtained from family prior to the procedure. Indications, risks, and benefits were explained at length. PROCEDURE SUMMARY: Sterile technique was observed. My hands were washed immediately prior to the procedure. I wore a surgical cap, mask with protective eyewear, sterile gown and sterile gloves throughout the procedure. The right inguinal region was prepped using chlorhexidine scrub and draped in sterile fashion using a full drape and sterile probe cover employed. The femoral pulse was identified. Palpating the femoral pulse throughout the procedure, the introducer needle was inserted medial to the femoral artery, inferior to the inguinal crease and into the femoral vein. Venous blood was withdrawn. The syringe was removed and a guidewire was advanced into the introducer needle. A small incision was made at the skin surface with a scalpel and the introducer needle was exchanged for a dilator over the guidewire. After appropriate dilation was obtained, the dilator was exchanged over the wire for a central venous catheter. The wire was removed and the catheter was sutured in place. A sterile sorbaview shield was placed over the catheter at the insertion site by nurse. The patient tolerated the procedure without any hemodynamic compromise. At time of procedure completion, all ports aspirated and flushed properly. Estimated blood loss is 15 cc. Addendum - Attending - Attending Attestation Date/Time: 07/11/20 2133 I, Hu Nina MD, personally evaluated the patient and discussed indications for the procedure described by Dr. Duffy on 07/09/20. I directly supervised and participated in the Central Venous Catheter placement and I agree with the description of procedure as documented above without any addition or exceptions.
[2020-07-09] MEDS ORDERED: Cefepime 1 GM in Sodium Chloride 0.9% 100 ML IVPB SCH (23:00)
[2020-07-09] MEDS: Phenylephrine 40 MG in Sodium Chloride 0.9% 250 ML 250 ML IVPB PRN (23:17)
[2020-07-10] MEDS: Norepinephrine 8 MG/0.9% NS 250 ML IVPB SCH ×2 (01:37→07:46)
[2020-07-10] MEDS: Dextrose 5 %-0.45 % NaCl 1,000 ML IV SCH (01:42)
[2020-07-10 05:19] LABS: Band 17 % (5-11); Hemoglobin 8.7 g/dL (14.0-18.0); Hypochromia SLIGHT = 6-15 cells (100X) (0-5/hpf); Lymphocytes 15 % (21-51); MDiff Complete? YES; Mean Corpuscular HGB CONC 29.6 g/dL (32.0-36.0); Mean Corpuscular Hemoglobin 26.5 pg (27.0-31.0); Mean Corpuscular Volume 89.2 fL (78.0-98.0); Mean Platelet Volume 11.2 fL (7.4-10.4); Metamyelocyte 1 % (0-0); Neutrophil 67 % (42-75); Nucleated RBC 6 % (0); Platelet Count 219 thou/uL (130-400); Polychromasia SLIGHT = 2-3 cells (100X) (0-2/hpf); RBC Distribution Width 15.9 % (11.5-14.5); Red Blood Cell (RBC) Count 3.28 mill/uL (4.70-6.10); Schistocytes SLIGHT = 2-5 cells (100X) (0-1/hpf); Tear Drops SLIGHT = 2-5 cells (100X) (0-1/hpf); White Blood Cell (WBC) Count 23.1 thou/uL (4.8-10.8)
[2020-07-10 05:29] VITALS: BMI 60.1
[2020-07-10 05:59] LABS: Anion Gap 18 mmol/L (10-20); BUN (Urea Nitrogen) 106 mg/dL (8.4-25.7); Calc. Creatinine Clearance 99 mL/min (70-130); Calcium 7.8 mg/dL (7.8-10.44); Carbon Dioxide 26 mmol/L (23-31); Chloride 102 mmol/L (98-107); Glucose 138 mg/dL (80-115); Potassium 5.7 mmol/L (3.5-5.1); Sodium 140 mmol/L (136-145)
[2020-07-10] MEDS: Mometasone 100 MCG/Formoterol 5 MCG 120 PUFF INHALER INH SCH (07:22)
[2020-07-10 07:30] VITALS: BP 92/60
[2020-07-10 07:35] LABS: Actual Bicarbonate (HCO3a) 25.4 mEq/L (22-28); Base Excess (BEa) -3.3 mEq/L (-2.0 to +3.0); Calcium, Ionized (arterial) 1.09 mmol/L (1.12-1.30); Hemoglobin (Hb) 9.5 g/dL (14.0-18.0); Potassium - ABG Lab 5.74 mmol/L (3.70-5.30)
[2020-07-10] MEDS: Vecuronium 10 MG VIAL IVP PRN ×2 (07:35→09:39)
[2020-07-10] MEDS: Lorazepam 2 MG/ML VIAL SLOW IVP PRN ×2 (07:35→09:39)
[2020-07-10] MEDS: Enoxaparin Sodium 100 MG/ML SYRINGE SC SCH (07:36)
[2020-07-10] MEDS: Zinc Sulfate 220 MG CAP PO SCH (07:36)
[2020-07-10] MEDS: Pantoprazole 40 MG GRANULES PACKET PER TUBE SCH (07:36)
[2020-07-10] MEDS: Cholecalciferol 1,000 UNITS (25 MCG) TAB PO SCH (07:36)
[2020-07-10] MEDS: Ascorbic Acid 500 mg Chewable Tablet PO SCH (07:36)
[2020-07-10] MEDS: Polyethylene Glycol 3350 17 GM Packet PO SCH (07:36)
[2020-07-10 07:44] LABS: CO2 Tension 67.8 mmHg (35.0-45.0); O2 Tension (PaO2), arterial 53.8 mmHg (> 80.0); pH, Arterial 7.19 (7.35-7.45)
[2020-07-10 07:45] LABS: Puncture Site LRA
[2020-07-10] MEDS ORDERED: Colchicine 0.6 MG TAB PO SCH (09:00)
[2020-07-10] MEDS: Phenylephrine 40 MG in Sodium Chloride 0.9% 250 ML 250 ML IVPB PRN (09:39)
[2020-07-10] MEDS: Acetaminophen 325 MG TAB PO PRN (09:47)
[2020-07-10] MEDS ORDERED: Sodium Bicarb 50 MEQ/50 ML Abboject 8.4% SYRINGE ONE ×2 (10:30→10:49)
[2020-07-10] MEDS ORDERED: EPINEPHrine 1 MG/10 ML Abboject SYRINGE ONE (10:30)
[2020-07-10 10:55] LABS: Actual Bicarbonate (HCO3a) 21.4 mEq/L (22-28); Base Excess (BEa) -7.7 mEq/L (-2.0 to +3.0); Calcium, Ionized (arterial) 1.06 mmol/L (1.12-1.30); Carboxyhemoglobin (COHb) 0.8 gm% (0.0-3.0); Hemoglobin (Hb) 9.2 g/dL (14.0-18.0); Potassium - ABG Lab 7.96 mmol/L (3.70-5.30); pH, Arterial 7.14 (7.35-7.45)
[2020-07-10 10:56] LABS: CO2 Tension 64.6 mmHg (35.0-45.0); O2 Tension (PaO2), arterial 53.3 mmHg (> 80.0); Puncture Site RFA
[2020-07-10] MEDS ORDERED: Sodium Bicarbonate 150 MEQ in Dextrose 5% in Water 1,000 ML IV SCH (11:00)
--- NOTE | 2020-07-10 11:07 | RAD ---
SINGLE VIEW CHEST: Date: 07/10/2020 COMPARISON: 07/09/2020. HISTORY: Pneumonia. FINDINGS: Single view of the chest shows a cardiomediastinal silhouette which is upper limits of normal in size . The lines and tubes are unchanged in position. There is extensive subcutaneous emphysema. Multifoca l scattered infiltrates are seen in the lungs. No obvious pneumothorax is visualized but evaluation i s limited given the subcutaneous emphysema. IMPRESSION: Stable exam. POS: EAA
[2020-07-10] MEDS ORDERED: EPINEPHrine 4 MG in Dextrose 5% in Water 250 ML IV SCH (11:15)
--- NOTE | 2020-07-10 11:33 | PDOC.HOSPP ---
- Subjective Encounter Date: 07/10/20 Encounter Time: 11:31 Subjective: Mr. Walls was seen today in follow-up of COVID pneumonia. He is intubated, and unresponsive. He was became hypotensive, and bradycardic and ACLS was performed. - Objective Vital Signs & Weight: Vital Signs (12 hours) Temp Pulse Resp BP Pulse Ox 07/10/20 11:11 102 H 07/10/20 08:00 100.4 F H 91 L 07/10/20 07:23 117 H 92/60 07/10/20 06:00 34 H 07/10/20 04:00 99.8 F H 29 H 07/10/20 02:41 117 H 07/10/20 02:00 30 H 07/10/20 00:00 100.3 F H 07/09/20 23:59 32 H Weight Admit Weight 213 lb Weight 429 lb 7.367 oz Most Recent Monitor Data Heart Rate from ECG 113 NIBP 70/43 NIBP BP-Mean 52 Respiration from ECG 30 SpO2 94 I&O: 07/09/20 07/10/20 07/11/20 06:59 06:59 06:59 Intake Total 4799.7 7777.8 1126.8 Output Total 1545 1265 200 Balance 3254.7 6512.8 926.8 Result Diagrams: 07/10/20 04:01 07/10/20 04:01 Hospitalist ROS - Medication Medications: Active Medications Generic Name Dose Route Start Last Admin Trade Name Freq PRN Reason Stop Dose Admin Acetaminophen 650 mg 06/24/20 00:15 07/10/20 09:47 Acetaminophen 325 Mg Tab PO 650 mg Q4H PRN Administration Headache/Fever/Mild Pain (1-3) Ascorbic Acid 1,000 mg 06/28/20 09:00 07/10/20 07:36 Ascorbic Acid 500 Mg Chewable Tablet PO 1,000 mg DAILY ABDULLAHI Administration Cholecalciferol 2,000 units 06/24/20 09:00 07/10/20 07:36 Cholecalciferol 1,000 Units (25 Mcg) Tab PO 2,000 units DAILY ABDULLAHI Administration Colchicine 0.6 mg 07/10/20 09:00 07/10/20 07:39 Colchicine 0.6 Mg Tab PO 0.6 mg DAILY ABDULLAHI Administration Dexamethasone 3 mg 07/09/20 06:00 07/09/20 05:18 Dexamethasone 4 Mg/Ml Vial SLOW IVP 3 mg 0600 ABDULLAHI Administration Enoxaparin Sodium 100 mg 07/08/20 09:00 07/10/20 07:36 Enoxaparin Sodium 100 Mg/Ml Syringe SC 100 mg 0900 ABDULLAHI Administration Fentanyl 100 mls @ 0 mls/hr 07/02/20 03:00 07/08/20 16:32 Fentanyl Cadd IV 08/01/20 03:00 100 mls INF ABDULLAHI Administration Protocol Per Protocol Norepinephrine Bitartrate 250 mls @ 0 mls/hr 07/02/20 09:30 07/10/20 07:46 Levophed IVPB 250 mls INF ABDULLAHI Administration Protocol Titrate Cefepime HCl 1 gm/ Sodium 100 mls @ 200 mls/hr 07/09/20 23:00 07/09/20 23:10 Chloride IVPB 100 mls 2300 ABDULLAHI Administration Dextrose/Sodium Chloride 1,000 mls @ 75 mls/hr 07/09/20 11:45 07/10/20 01:42 D5 1/2 Ns IV 1,000 mls .[id number] ABDULLAHI Administration Phenylephrine HCl 40 mg/ 254 mls @ 0 mls/hr 07/09/20 22:14 07/10/20 09:39 Sodium Chloride IVPB 254 mls INF PRN Administration To maintain SBP > 90. Protocol Titrate Lorazepam 2 mg 07/02/20 03:00 07/10/20 09:39 Lorazepam 2 Mg/Ml Vial SLOW IVP 08/01/20 03:00 2 mg Q1H PRN Administration Breakthrough agitation Mometasone Furoate/Formoterol Fumar 1 puff 06/24/20 06:30 07/10/20 07:22 Mometasone 100 Mcg/Formoterol 5 Mcg 120 Puff Inhaler INH 1 puff BID-RT ABDULLAHI Administration Ondansetron HCl 4 mg 06/24/20 00:15 06/25/20 15:14 Ondansetron Pf 4 Mg/2 Ml Vial IVP 4 mg Q6H PRN Administration Nausea/Vomiting use 1st Pantoprazole Sodium 40 mg 07/09/20 09:00 07/10/20 07:36 Pantoprazole 40 Mg Granules Packet PER TUBE 40 mg DAILY ABDULLAHI Administration Polyethylene Glycol 17 gm 06/24/20 09:00 07/10/20 07:36 Polyethylene Glycol 3350 17 Gm Packet PO 17 gm DAILY ABDULLAHI Administration Propofol 1,000 mg 07/02/20 03:00 07/08/20 19:39 Propofol 1,000 Mg/100 Ml Vial IV 08/01/20 03:00 1,000 mg INF PRN Administration TO ACHIEVE GOAL RASS Protocol Vecuronium [place] 10 mg 07/02/20 09:25 07/10/20 09:39 Vecuronium 10 Mg Vial IVP 10 mg Q30MIN PRN Administration Agitation Zinc Sulfate 220 mg 06/24/20 09:00 07/10/20 07:36 Zinc Sulfate 220 Mg Cap PO 220 mg DAILY ABDULLAHI Administration Hospitalist Exam Vitals: Vital Signs (12 hours) Temp Pulse Resp BP Pulse Ox 07/10/20 11:11 102 H 07/10/20 08:00 100.4 F H 91 L 07/10/20 07:23 117 H 92/60 07/10/20 06:00 34 H 07/10/20 04:00 99.8 F H 29 H 07/10/20 02:41 117 H 07/10/20 02:00 30 H 07/10/20 00:00 100.3 F H 07/09/20 23:59 32 H Weight Admit Weight 213 lb Weight 429 lb 7.367 oz Most Recent Monitor Data Heart Rate from ECG 113 NIBP 70/43 NIBP BP-Mean 52 Respiration from ECG 30 SpO2 94 General Appearance: ill appearing Respiratory: rales (at the bases) Gastrointestinal: soft, non-distended, normal bowel sounds, no palpable masses, no hepatomegaly Extremities: no cyanosis, 1+ LE edema Hosp A/P (1) Acute respiratory failure due to COVID-19 Code(s): U07.1 - COVID-19; J96.00 - ACUTE RESPIRATORY FAILURE, UNSP W HYPOXIA OR HYPERCAPNIA Status: Acute (2) Bilateral pneumothoraces Code(s): J93.9 - PNEUMOTHORAX, UNSPECIFIED Status: Acute (3) Anemia, normocytic normochromic Code(s): D64.9 - ANEMIA, UNSPECIFIED Status: Chronic - Plan * Acute respiratory failure due to COVID pneumonia- he continues to require ventilatory support. He is requiring maximal support to facilitate oxygenation * The patient was noted to be brdaycardic and hypotensive. ACLS was initiated. He regained a pulse and ROSC. This however lasted only a few minutes. During this time I spoke with the patient's on the phone, to inform her of his condition. She requested continued FULL CODE status. ACLS was again started. He was placed on an EPI drip, aas well as a Bicarb drip. He became bradycardic once again. ACLS was re-started, and unfortunately he succumbed to his illness.
[2020-07-10 13:33] VITALS: TEMP 102.4
--- NOTE | 2020-07-10 19:18 | DIS ---
DATE OF ADMISSION: 06/23/2020 DATE OF DISCHARGE: 07/10/2020 DATE OF : 07/10/2020. DIAGNOSES: 1. Acute respiratory failure with hypoxemia. 2. COVID-19 pneumonia. 3. Adrenal adenoma. CONSULTANTS DURING THE ADMISSION: The patient was seen by the Pulmonary/Critical Care Team; Nephrology with Dr. Soliman. IMAGING DONE DURING THE HOSPITAL STAY: The patient had a CT scan of the chest, which showed findings consistent with COVID pneumonia as well as an adrenal adenoma with some diffuse lymphadenopathy. CODE STATUS: Full code. ALLERGIES: HYDROCODONE. HOSPITAL COURSE: Mr. Walls is a pleasant 65-year-old gentleman, who was transferred from [facility] in [facility] due to COVID pneumonia. He had began having symptoms about 7 days prior to admission. He was transferred to our facility for bed availability. He was initially started on azithromycin and Decadron and was requiring high-flow oxygen. After a few days on high-flow, he was then transitioned to BiPAP. Unfortunately, he continued to decompensate and ultimately required intubation. He remained intubated for several days, and during this time, he became very deconditioned. His oxygenation never improved. In fact, it worsened despite treatment. He also began having kidney failure, and at the time of his , his renal function began to progressively worsen. Nephrology was consulted for this. 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 He was requiring high levels of FiO2, in fact, 100% on bilevel ventilation with additional PEEP and still his O2 sats were marginal. All these factors were communicated to the patient's several days before he passed; however, she insisted on continuing with full code status. Then, unfortunately on 05/09/2021, his heart rate declined as well as his blood pressure, and a full code situation was undertaken. He underwent ACLS protocol several times all over approximately an hour. During this time, his was contacted, and she wanted us to try to keep him alive until she came to see him. We did our best with repeated code situations as well as IV epinephrine as well as IV vasopressin and norepinephrine; however, even with all of these measures, the patient shortly before the patient's could arrive. The patient as a result of complications due to COVID-19 infection. Job ID: [id number]
--- NOTE | 2020-07-12 00:30 | PQF ---
Dear : Rolan Mcmanus Date 07/12/2020 Please exercise your independent, professional judgment in responding to the clarification form. Clinical indicators are provided on the bottom of this form for your review Can you please further clarify diagnosis of the patient? Please check appropriate box(es): [ ] Acute Tubular Necrosis (ATN) [ X] Acute Renal Failure (ARF) / Acute Kidney Injury (DEVORA) [ ] Other diagnosis please specify [ ] Unable to determine Physician Signature: Date/Time: For continuity of documentation, please document condition throughout progress notes and discharge summary. Thank You. To be completed by CDI/Coding staff for physician review: Present Clinical Indicators - Signs / Symptoms / Labs Results and Location in Medical Record [ x ] Worsening BUN PN 07/08 [ x ] Enoxaparin was decreased yesterday because of his worsening renal function PN 07/08 [ x ] Developing acute renal failure PN 07/08 [ x ] Acute kidney injury PN 07/09 Dr. Soliman pg.2 [ x ] Generalized malaise PN 07/09 Dr. Soliman pg.1 [ x ] Creatinine has been inching up fron 0.8 to most recent value of 1.25 PN 07/09 Dr. Soliman pg.1 [ x ] Reviewing urinalysis to make sure there is no superimposed acute tubular necrosis PN 07/09 Dr. Soliman pg.2 [ x ] Crea: 2.07H BVO=508 GFR=32 Laboratory 07/10 [ x ] Renal function began to progressively worsen PN 07/09 Dr. Soliman pg.2 [ x ] 1+ LE edema PN 07/10 Present Risk Factors Results and Location in Medical Record [ x ] COVID Pneumonia PN 07/09 Dr. Soliman pg.2 [ x ] hypernatremia PN 07/09 Dr. Soliman pg.2 [ x ] Acute respiratory failure DS pg.1 [ x ] COVID nephropathy DS pg.1 Present Treatments Results and Location in Medical Record [ x ] Nephrology Consult Dr. Soliman [ x ] IV Fluids MAR [ x ] Adjusted patient antibiotics PN 07/[address] Denson [ x ] Cut down his colchicine dose to daily PN 07/[address] Denson CDS/Mastic Worker Signature: Chico Lorenzana Phone #: [facility] [phone] Date 07/12/2020 This is a permanent part of the Medical Record [facility]
--- NOTE | 2020-07-12 20:34 | PQF ---
Dear :Rolan Mcmanus Date 07/12/2020 Please exercise your independent, professional judgment in responding to the clarification form. Clinical indicators are provided on the bottom of this form for your review Based on your clinical judgment, can you please specify the infectious status of this patient? Please check appropriate box(es): [ ] Sepsis [ ] Severe sepsis [ ] Localized infection without sepsis [ ] Other diagnosis please specify [X ] Unable to determine No evidence of sepsis in the records In addition, please specify: Present on Admission (POA): [ ] Yes [ ] No [ ] Unable to determine Physician Signature: Date/Time: For continuity of documentation, please document condition throughout progress notes and discharge summary. Thank You. To be completed by CDI/Coding staff for physician review: Present Clinical Indicators - Signs / Symptoms / Labs Results and Location in Medical Record [ x ] Shortness of breath H and P pg.1 [ x ] Patient diagnosed with covid 7 days ago H and P pg.1 [ x ] WBC: 9.6, 10.1, 12.7H, 14.1H, 15.2H, 17.2H, 16.8H, 12.1H, 23.1H Laboratory [ x ] Acute hypoxic respiratory failure PN pg.1 07/05 [ x ] Acute kidney injury PN 07/09 pg.2 [ x ] Unresponsive, he was become hypotensive and bradycardic Hospita;ist PN pg.1 07/10 [ x ] Blood culture no growth at 48 hours Microbiology 07/08 [ x ] VS: T: 99.9H, P:107H, RR: 25H, BP: 96/61 Palliative Consult 07/08 pg.1 Present Risk Factors Results and Location in Medical Record [ x ] 65 years old H and P pg.1 [ x ] COVID19 infection H and P pg.3 [ x ] Subcutaneous emphysema PN 07/09 pg.1 Present Treatments Results and Location in Medical Record [ x ] Mechanical ventilation PN pg.1 07/05 [ x ] Pulmonary Consult Dr. Denson 06/26 [ x ] CVC placement Event note pg.1 07/09 [ x ] IV fluids MAR [ x ] Levophed 250ml I MAR [ x ] Cefepime 1gm IV MAR [ x ] Isolation protocol Hospitalist PN pg.8 07/08 [ x ] Azithromycin 500mg IV MAR [ x ] Rocephin 1 gm IV MAR [ x ] Remdesivir IV MAR CDS/Resource Development Director Signature: Chico Lorenzana Phone #: ext [phone] Date 07/12/2020 This is a permanent part of the Medical Record [facility]
--- NOTE | 2020-07-19 17:30 | PQF ---
Dear : Rolan Mcmanus Date 07/20/2020 Please exercise your independent, professional judgment in responding to the clarification form. Clinical indicators are provided on the bottom of this form for your review Please check appropriate box(es): [ ] Acute Metabolic Encephalopathy [ ] Acute Toxic Encephalopathy [ ] Acute Hypoxic Encephalopathy [ ] Other diagnosis please specify [ X] Unable to determine- patient intubated unable to assess Physician Signature: Date/Time: For continuity of documentation, please document condition throughout progress notes and discharge summary. Thank You. To be completed by CDI/Coding staff for physician review: Present Clinical Indicators - Signs / Symptoms / Labs Results and Location in Medical Record [ x ] Intubated for progressive hypoxemia PN 07/02 pg.1 [ x ] Unresponsive Hospitalist PN pg.1 07/08 [ x ] He has not been responsive Hospitalist PN pg.1 07/09 [ x ] He was become hypotensive and bradycardic Hospitalist PN pg.1 07/10 [ x ] He become very deconditioned DS pg.1 Present Risk Factors Results and Location in Medical Record [ x ] Acute hypoxic respiratory failure Hospitalist PN pg.06/24 [ x ] COVID Pneumonia Hospitalist PN pg.06/24 [ x ] 65 years old H and P pg.1 [ x ] Critical illness weakness PN pg.1 26 [ x ] Progressive renal failure PN 07/07 pg.1 [ x ] COVID nephropathy DS pg.1 Present Treatments Results and Location in Medical Record [ x ] BipAP Hospitalist PN 2/4 pg.5 [ x ] Intubation Hospitalist PN / pg.1 [ x ] Mechanical ventilation Hospitalist PN 07/03 pg.6 [ x ] IV fluids MAR [ x ] IV Antibiotics MAR [ x ] Aspirin 325mg MAR CDS/Makeup Artist Signature: Chico Lorenzana Phone #: ext [phone] Date 07/20/2020 This is a permanent part of the Medical Record [facility]
== END 2020-07-10 11:37 | disposition expired | DRG 207 ==
LOC: T4-B 20:06 → 2SE 06-28 17:57 → CCU 07-02 02:21
PROVIDERS: ADMIT Internal Medicine; ATTEND Internal Medicine
PROC: 8E0ZXY6 Isolation (ICD-10-PCS; 2020-06-23)
PROC: XW13325 Transfusion of Convalescent Plasma (Nonautologous) into Peripheral Vein, Percutaneous Approach, New Technology Group 5 (ICD-10-PCS; 2020-06-28)
PROC: XW033E5 Introduction of Remdesivir Anti-infective into Peripheral Vein, Percutaneous Approach, New Technology Group 5 (ICD-10-PCS; 2020-06-28)
PROC: 5A09357 Assistance with Respiratory Ventilation, Less than 24 Consecutive Hours, Continuous Positive Airway Pressure (ICD-10-PCS; 2020-07-01)
PROC: 5A1955Z Respiratory Ventilation, Greater than 96 Consecutive Hours (ICD-10-PCS; principal; 2020-07-02)
PROC: 0BH17EZ Insertion of Endotracheal Airway into Trachea, Via Natural or Artificial Opening (ICD-10-PCS; 2020-07-02)
PROC: 06HY33Z Insertion of Infusion Device into Lower Vein, Percutaneous Approach (ICD-10-PCS; 2020-07-09)
PROC: 3E033XZ Introduction of Vasopressor into Peripheral Vein, Percutaneous Approach (ICD-10-PCS; 2020-07-09)
PROC: 5A12012 Performance of Cardiac Output, Single, Manual (ICD-10-PCS; 2020-07-10)
DX: U07.1 COVID-19 (principal); J12.82 Pneumonia due to coronavirus disease 2019; J96.01 Acute respiratory failure with hypoxia; E46 Unspecified protein-calorie malnutrition; Z68.44 Body mass index [BMI] 60.0-69.9, adult; N17.9 Acute kidney failure, unspecified; J93.9 Pneumothorax, unspecified; E87.0 Hyperosmolality and hypernatremia; J98.2 Interstitial emphysema; I95.9 Hypotension, unspecified; E87.5 Hyperkalemia; R59.1 Generalized enlarged lymph nodes; D35.00 Benign neoplasm of unspecified adrenal gland; D64.9 Anemia, unspecified; R79.89 Other specified abnormal findings of blood chemistry; Z98.890 Other specified postprocedural states; Z88.5 Allergy status to narcotic agent
CPT/HCPCS: 36415; 36430; 36600; 71045; 80048; 80053; 81001; 82728; 82805; 83735; 84100; 85025; 85379; 85610; 85730; 86140; 86850; 86900; 86901; 87040; 87086; 92950; 94002; 94003; 94660; 94664; C9113; J0171; J0456; J0692; J0696; J1100; J1650; J1940; J2060; J2370; J2405; J2704; J3010; J3370; J3490; J7050; J7070; P9017